=== PATIENT | female | born 1945 | race Caucasian/White ===

== ENCOUNTER 2023-10-18 12:49 | Inpatient (IN) ==
--- OUTSIDE RECORDS SUMMARY | 2023-10-18 12:51 | External Medical Summary | Summary of Care ---
Author Name Unknown Organization [facility] Address [address] [place] [address] Phone [phone] Care Team Providers Care Time Recorder Name Role Phone Leslie Forbes MD Primary Care Provid er Reason for Visit * Reason Onset Date Comments Forms Request 08/14/2023 Encounter Details Date Type Department Care Team (Late st Contact Info) Description 08/14/2023 Telephone [facility] [address] [place] [address] Leslie Forbes MD [address] [place] [address] Forms Request Allergies No known active allergiesdocumented as of this encounter (statuses as of 09/03/2023) Medications Medication Sig Dispensed Refills Start Date End Date Status ACETAMINOPHEN 325 MG PO TABS Take 2 Tablets by mouth every 6 hours as needed. 100 Tab 0 06/30/2011 Active [facility] SUPREME DIAP[facility] S5 MISCIndications:Un specified urinary incontinence,Fecal urgency use 6-7 diapers per day 4 Box 3 06/30/2011 Active VITAMIN D 2000 UNITS PO TABSIndications:Vi tamin D deficiency 1 TABLET DAILY 30 Tab 0 04/01/2013 Active ECOTRIN LOW STRENGTH 81 MG PO TBECIndications:DM type 2, goal A1c below 7,HTN, goal below 140/90 One pill by mouth once a day 100 Tab 5 04/05/2014 Active Blood Glucose Monitoring Suppl (ONE TOUCH ULTRA SYSTEM KIT) W/DEVICE KIT Use up to four times a day as directed DX 250.0 1 Kit 0 05/15/2015 Active Alcohol Swabs (PHARMACIST CHOICE ALCOHOL) PADSIndications:DM type 2, goal A1C below 8.0 TEST 1-2 TIMES DAILY DIRECTED 100 Each 3 06/18/2015 Active Misc. Devices (BATH/SHOWER SEAT) MISCIndications:He miplegia and hemiparesis 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 (HCC) Use when in shower for stability 1 Each 0 02/23/2019 Active Cyanocobalamin (B-12-SL) 1000 MCG SL TabletIndications: Encounter for long-term (current) use of medications,Vitami n deficiency Place 1,000 mcg under the tongue daily. 90 Tab 1 09/14/2019 Active OneTouch Verio In Vitro Strip (Glucose Blood)Indications: Type 2 diabetes mellitus with hemoglobin A1c goal of less than 8.0% (HCC) USE TO TEST BLOOD SUGARS UP TO 4 TIMES A DAY DX E11.9 400 Strip 3 08/16/2020 Active metFORMIN HCl ER 500 MG Oral Tablet Extended Release 24 Hour (Glucophage XR) TAKE 2 TABLETS BY MOUTH TWICE A DAY WITH MEALS 360 Tablet 3 10/15/2021 Active Loperamide HCl 2 MG Oral Capsule (Imodium) Take 1 Capsule by mouth 4 times a day as needed for Diarrhea. 0 Active Nystatin 379085 UNIT/GM External CreamIndications:C andidal skin infection Apply topically to affected area 2 times a day . To affacted area for two weeks. 180 g 1 01/20/2022 Active OneTouch Verio w/Device KitIndications:Typ e 2 diabetes mellitus with hemoglobin A1c goal of less than 8.0% (HCC) Use up to 4 times a day E11.9 1 Kit 0 01/20/2022 Active OneTouch UltraSoft LancetsIndications :Type 2 diabetes mellitus with hemoglobin A1c goal of less than 8.0% (HCC) Use as directed 4 times a day as needed for Hyperglycemia (high sugar) or Hypoglycemia (low sugar). Use up to four times a day as directed 100 Each 5 01/20/2022 Active OneTouch UltraSoft LancetsIndications :Type 2 diabetes mellitus with hemoglobin A1c goal of less than 8.0% (HCC) Use up to four times a day as directed DX E11.9 400 Each 3 06/22/2022 Active Nystatin 510313 UNIT/GM External Powder (Nystop)Indication s:Candidal skin infection Apply topically to affected area 3 times a day. 240 g 5 08/12/2022 Active hydrALAZINE HCl 25 MG Oral Tablet (Apresoline) TAKE 1 TABLET BY MOUTH THREE TIMES A DAY 270 Tablet 2 08/19/2022 Active glipiZIDE 5 MG Oral Tablet (Glucotrol)Indicat ions:Type 2 diabetes mellitus with hemoglobin A1c goal of less than 8.0% (HCC) TAKE 2 TABLETS BY MOUTH EVERY DAY WITH BREAKFAST 180 Tablet 3 11/24/2022 Active linaGLIPtin 5 MG Oral Tablet (Tradjenta) Take 1 Tablet by mouth in the morning. 90 Tablet 2 01/12/2023 Active Atorvastatin Calcium 20 MG Oral Tablet (Lipitor)Indicatio ns:Type 2 diabetes mellitus with hemoglobin A1c goal of less than 8.0% (HCC) Take 1 Tablet by mouth in the morning. 90 Tablet 3 02/16/2023 Active OneTouch Verio In Vitro Strip (Glucose Blood)Indications: Type 2 diabetes mellitus with hemoglobin A1c goal of less than 8.0% (HCC) Use up to 4 times a day E11.9 100 Strip 11 03/10/2023 Active Levothyroxine Sodium 175 MCG Oral Tablet (Levoxyl)Indicatio ns:Hypothyroidism due to acquired atrophy of thyroid TAKE 1.25 TABLETS BY MOUTH IN THE MORNING. ON AN EMPTY STOMACH.. 113 Tablet 3 04/23/2023 Active Famotidine 40 MG Oral Tablet (Pepcid) TAKE 1 TABLET BY MOUTH EVERY DAY IN THE MORNING 90 Tablet 1 06/15/2023 Active Lisinopril 2.5 MG Oral Tablet (Prinivil)Indicati ons:Type 2 diabetes mellitus with hemoglobin A1c goal of less than 7.0% (HCC) TAKE 1 TABLET BY MOUTH EVERY DAY IN THE MORNING 90 Tablet 1 06/15/2023 Active Metoprolol Tartrate 50 MG Oral Tablet (Lopressor)Indicat ions:HTN, goal below 150/90 TAKE 1 TABLET BY MOUTH IN THE MORNING AND BEFORE BEDTIME 180 Tablet 1 06/15/2023 Active Jardiance 25 MG Oral Tablet (Empagliflozin)Ind ications:Type 2 diabetes mellitus with hemoglobin A1c goal of less than 8.0% (HCC) TAKE 1 TABLET BY MOUTH EVERY DAY IN THE MORNING 90 Tablet 1 06/15/2023 Active Potassium Chloride Lucy ER 10 MEQ Oral Tablet Extended Release (Klor-Con M10)Indications:HT N, goal below 150/90 TAKE 1 TABLET BY MOUTH 2 TIMES A DAY. WITH FOOD. Strength: 10 mEq 180 Tablet 1 08/03/2023 Active documented as of this encounter (statuses as of 09/03/2023) Active Problems Problem Noted Date Diagnosed Date Hyperlipidemia 08/13/2021 Gastro-esophageal reflux disease without esophag itis 08/13/2021 Hemiplegia and hemiparesis 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 05/21/2018 Last Assessment & Plan: L sided weakness. Non-ambulatory. Continues asa and atorvastatin BP at goal on lisinopril, metoprolol DM uncontrolled. LDL one year ago 34. Hypothyroidism due to acquired atrophy of thyroi d 05/21/2018 Last Assessment & Plan: TSH 07/28/22--20.30. [place] d/t noncompliance with taking levoxyl. Son reports he is giving it to her in am 30 min prior to other meds. They did not roll picker new dose levoxyl 200mcg y Unspecified abnormalities of gait and mobility 0 03/18/2017 Chronic diarrhea 02/04/2017 Primary osteoarthritis involving multiple joints 04/02/2016 Type 2 diabetes mellitus wit h hemoglobin A1c goal of less than 8.0% 10/07/2013 Overview: ICD-10 update of inactive term Last Assessment & Plan: Current Status: Slow or gradual progression Degree of Condition Awareness: Demonstrates poor understanding of condition, disease course, and/or prognosis "RED FLAG" Diabetic symptoms: o none Goal HgbA1c o <8 Diabetic Complications o NONE KNOWN Medication Regimen o Metformin o Sulfonylureas (ex: Glipizide) o DPP-4 Inhibitors (ex: Januvia, Tradjenta) o SGLT (ex: Jardiance) DM Secondary Prevention o TYRESE Inhibitor / ARB o Moderate-High Intensity Statin o Aspirin Followed by pcp Vitamin D deficiency 04/08/2012 Depression, major, in remission 03/23/2012 History of nonadherence to medical treatment HTN, goal below 150/90 documented as of this encounter (statuses as of 09/03/2023) Resolved Problems Problem Noted Date Diagnosed Date Resolved Date Pressure ulcer of left leg, stage III 04/22/2018 05/21/2018 Closed fracture of lower end of right femur with routine healing 04/22/2018 02/23/2019 Encounter for long-term (cur rent) use of medications 08/21/2017 05/21/2018 Hypothyroidism 01/16/2017 08/21/2017 Debility 06/13/2015 05/21/2018 Sleep disturbance 04/03/2015 04/02/2016 Left knee DJD 02/12/2015 04/02/2016 Abnormal thyroid function test 01/24/2015 04/02/2016 Hematoma of left hip 11/28/2014 016 HTN, goal below 140/90 11/16/201404/02 Paronychia of second finger, right 10/13/2014 04/02/2016 Wheezing 04/21/2014 04/02/2016 Need for shingles vaccine 10/10/2013 Type 1 diabetes mellitus wit h hemoglobin A1c goal of less than 8.0% 10/07/2013 10/07/2013 Overview: ICD-10 update of inactive term Sleep disturbance 06/21/2013 05/21/2018 Sinobronchitis 06/02/2013 04/02/2016 Cough 06/02/2013 05/05/2014 Nausea with vomiting 06/02/2013 014 Routine medical exam 04/01/2013 016 HTN, goal below 140/90 04/01/201310/10 Need for shingles vaccine 11/02/2012 Obesity, Class I, BMI 30.0-3 4.9 (see actual BMI) 11/02/2012 08/21/2017 Overview: BMI= 33.65 11/02/12 Urinary incontinence 07/27/2012 016 Overview: ICD-10 update of inactive term Unspecified prophylactic or treatment measure 07/19/20 12 04/02/2016 Acute pharyngitis 06/10/2012 05/05/2014 Acute URI 06/10/2012 05/05/2014 Acute URI 05/24/2012 05/05/2014 Diaper or napkin rash 04/07/20122015 Severe obesity with body mas s index (BMI) of 35.0 to 39.9 with serious comorbidity 03/23/2012 Overview: bmi= 35.67 03/23/12 ICD-10 update of inactive diagnosis Hemiplegia, post-stroke 03/23/201205/02 Other screening mammogram 03/23/2012 Menopause 03/23/2012 05/21/2018 HTN, goal below 140/90 06/30/201103/23 Adjustment disorder with depressed mood 06/30/2011 03/23/2012 Hypothyroidism 06/30/2011 03/23/2012 ARF w/ tubular necrosis 02/0806/30/2011 08/10/2014 ACUTE RENAL FAILURE REQUIRING DIALYSIS 02/0806/30/2011 06/30/2011 Type 2 diabetes mellitus wit h hemoglobin A1c goal of 7.0%-8.0% 06/30/2011 03/23/2012 Overview: ICD-10 update of inactive term Benign neoplasm of pituitary gland 06/30/2011 08/21/2017 Anemia of other chronic disease 06/30/2011 04/02/2016 ACUTE CHOLECYSTITIS S/P CHOLECYSTECTOMY 02/08 1 08/21/2017 CVA WITH LEFT HEMIPARESIS 06/30/2011 Type 2 diabetes mellitus wit h hemoglobin A1c goal of less than 7.0% 04/08/2012 Overview: ICD-10 update of inactive term HTN, goal below 130/80 04/01 Hemiparesis, left 05/21/2018 Hypothyroid 05/21/2018 Type 2 diabetes mellitus wit h hemoglobin A1c goal of 7.0%-8.0% 11/02/2012 Overview: ICD-10 update of inactive term Type 2 diabetes mellitus wit h hemoglobin A1c goal of less than 7.0% 10/07/2013 Overview: ICD-10 update of inactive term HTN, goal below 140/80 11/16 documented as of this encounter (statuses as of 09/03/2023) Immunizations Name Administration Dates Next Due Pneumococcal Conjugate Vacc, 13 Valent (Prevnar) 04/02/2016 Pneumococcal Polysaccharide PPV23 (Pneumovax) 06/30/2011 Seasonal Influenza, PF, 6 M & above, IM , (FluLaval or Fluzone) 08/08/2022,06/05/2020,06/02/2019,05/21,08/21/2017 Seasonal Influenza, Quadriva lent Hd (Fluzone Hd) 08/03/2023,08/13/2021 Seasonal Influenza, Quadriva lent, No Preserve, IM 10/08/2016 Seasonal Influenza, Split, I IV3, With Preserve, Inj 05/05/2014,06/21/2013,05/14/2012,06/14,05/21/2010 TDAP (age 10 and older)(Boostrix) 11/02/2012 documented as of this encounter Social History Tobacco Use Types Packs/Day Years Used Date Smoking Tobacco: Never Smokeless Tobacco: Never Alcohol Use Standard Drinks/Week Comments No 0 (1 standard drink = 0.6 oz pur e alcohol) none PHQ-2 Answer Date Recorded PHQ Adult Total Score 0 08/13/2021 Hunger Vital Sign Answer Date Recorded Within the past 12 months, y ou worried that your food would run out before you got the money to buy more. Never true 01/09/20 23 Within the past 12 months, t he food you bought just didn't last and you didn't have money to get more. Never true 01/08/2023 Sex and Gender Information Value Date Recorded Sex Assigned at Female 09/13/2019 1:00 PM EST Gender Identity Female 09/13/2019 1:00 PM EST Sexual Orientation Straight 09/13/2019 1: 00 PM EST Job Start Date Occupation Industry Not on file Not on file Not on file documented as of this encounter Miscellaneous Notes * Telephone Encounter - Leslie Forbes MD - 09/03/2023 4:56 PM EST Form signed and submitted to nursing for processing. * Telephone Encounter - Arti Dolan OSA - 08/14/2023 3:00 PM EST Forms for [facility]. I put them in the Box. documented in this encounter Plan of Treatment Upcoming Encounters Date Type Department Care Team (Late st Contact Info) Description 12/04/2023 2:40 PM EDT Office Visit [facility] [address] [place] [address] Leslie Forbes MD [address] [facility] [place] [address] Health Maintenance Due Date Last Done Comments COVID-19 Vaccine (#1) 1945 Zoster Vaccines (1 of 2) 1996 Hepatitis B (1 of 3 - Risk 3-dose series) 2006 Diabetic Eye Exam 12/23/2013 12/23/2012, , 05/06/2012 Albumin/Creatinine Ratio 04/08/2014 04/08/2013, 03/01 DXA Scan 03/31/2019 03/31/2012, 03/31/2012 Depression Screening 08/13/2022 08/13/2021, 02/12/2015 (Discussed) DTaP,Tdap,and Td Vaccines (2 - Td or Tdap) 11/02/2022 11/02/2012 Diabetic Foot Exam 07/28/2023 07/28/2022, 1 10/14/2020, 09/13/2019, Additional history exists HbA1c 02/02/2024 08/03/2023, 08/0 11/2022, 12/09/2022, Additional history exists GFR 08/03/2024 08/03/2023, 04/1 08/2022, 07/28/2022, Additional history exists TSH 08/03/2024 08/03/2023, 08/0 11/2022, 12/09/2022, Additional history exists Pneumococcal Vaccine: 65+ Years Completed 04/02/2016, 06/30/2011 Influenza Vaccine (FLU shot) Completed 11/2022, 08/08/2022, 08/13/2021, Additional history exists GARDASIL-HPV IMMUNIZATION SERIES Aged Out No longer eligible based on patient's age to complete this topic MENINGOCOCCAL (MENACTRA/MENVEO) Aged Out No longer eligible based on patient's age to complete this topic documented as of this encounter Medical Devices Not on filedocumented as of this encounter Care Teams Time Recorder Relationship Specialty Start Date End Date Leslie Forbes MD [address] [place] [address] PCP - General Family Medicine 07/28/22 documented as of this encounter
--- OUTSIDE RECORDS SUMMARY | 2023-10-18 12:51 | External Medical Summary | Summary of Care ---
Author Name Unknown Organization [facility] Address [address] [place] [address] Phone [phone] Care Team Providers Care Telegraphic Service Dispatcher Name Role Phone Leslie Forbes MD Primary Care Provid er Reason for Visit * Reason Onset Date Comments Referral 10/07/2023 [facility] d/c (DM) Encounter Details Date Type Department Care Team (Late st Contact Info) Description 10/07/2023 Telephone Pharmacy Call Center [address] [place] [address] [facility] [address], [place] [id number] Referral ([facility] d/c (DM)) Allergies No known active allergiesdocumented as of this encounter (statuses as of 10/07/2023) Medications Medication Sig Dispensed Refills Start Date [...] as needed for Diarrhea. 0 Active Nystatin 973127 UNIT/GM External CreamIndications:C andidal skin infection Apply [...] E11.9 400 Each 3 06/22/2022 Active Nystatin 032097 UNIT/GM External Powder (Nystop)Indication s:Candidal skin infection [...] as of this encounter (statuses as of 10/07/2023) Active Problems Problem Noted Date Diagnosed Date [...] 05/21/2018 Last Assessment & Plan: TSH 07/28/22--20.30. [place] d/t noncompliance with taking levoxyl. Son reports he is giving it to her in am 30 min prior to other meds. 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 Patient is discharged from [facility] services at this time. If patient would like to schedule an appointment with [facility] within 6 months, she can call our department directly at [phone] and we would be happy to help her schedule with us. Thank you, Josie Crenshaw Business Database Analyst [facility] 10/07/2023,11:40 AM documented in this encounter Plan of Treatment Upcoming Encounters Date Type Department Care Team (Late st Contact Info) Description 12/04/2023 2:40 PM EDT Office Visit [facility] [address] [place] [address] Leslie Forbes MD [address] [place] [address] Health Maintenance Due Date Last Done [...] 12/09/2022, Additional history exists GFR 08/03/2024 08/03/2023, 0408/2022, 07/28/2022, Additional history exists TSH 08/03/2024 08/03/2023, [...] filedocumented as of this encounter Care Teams Telegraphic Service Dispatcher Relationship Specialty Start Date End Date Leslie Forbes MD [address] [place] [address] PCP - General Family Medicine 07/28/22 documented as of this encounter
--- OUTSIDE RECORDS SUMMARY | 2023-10-18 12:52 | External Medical Summary | Summary of Care ---
Author Name Unknown Organization [facility] Address [address] [facility] [place] [address] Phone [phone] Care Team Providers Care Watcher [employer] Name Role Phone Leslie Forbes MD Primary Care Provid er Reason for Visit * Reason Onset Date Comments [facility]: Maintenance 08/12/2023 Encounter Details Date Type Department Care Team (Late st Contact Info) Description 08/12/2023 Telephone [facility], [facility] [address] [facility] [place] [address] [facility], Nurse [facility] [address] [facility] [place] [address] [facility]: Maintenance Allergies No known active allergiesdocumented as of this encounter (statuses as of 08/13/2023) Medications Medication Sig Dispensed Refills Start Date [...] as needed for Diarrhea. 0 Active Nystatin 320598 UNIT/GM External CreamIndications:C andidal skin infection Apply [...] E11.9 400 Each 3 06/22/2022 Active Nystatin 268667 UNIT/GM External Powder (Nystop)Indication s:Candidal skin infection [...] as of this encounter (statuses as of 08/13/2023) Active Problems Problem Noted Date Diagnosed Date [...] 05/21/2018 Last Assessment & Plan: TSH 07/28/22--20.30. [facility] d/t noncompliance with taking levoxyl. Son reports he is giving it to her in am 30 min prior to other meds. They did not seed cone picker new dose levoxyl 200mcg y Unspecified [...] as of this encounter (statuses as of 08/13/2023) Resolved Problems Problem Noted Date Diagnosed Date [...] inactive term Unspecified prophylactic or treatment measure 1104/02/2016 Acute pharyngitis 06/10/2012 05/05/2014 Acute URI 06/10/2012 [...] as of this encounter (statuses as of 08/13/2023) Immunizations Name Administration Dates Next Due Pneumococcal [...] encounter Miscellaneous Notes * Telephone Encounter - Lyla Tinajero RN - 08/13/2023 3:42 PM EST See CM note Lyla Tinajero RN * Telephone Encounter - Natalie Ramires RN - 08/12/2023 3:32 PM EST Phone call from caregiver Disha asking if nurse can see patient, patient has painful rash in groin, side and back of legs, rash appears "yeasty". She is applying Nystatin powder. Caregiver reports patient is incontinent and bedbound, sons are taking care of patient as best they can but has concerns about incontinence care. Disha states she is recently reestablishing care of patient. Patient graduated from [facility] 11/2022 and was referred to PCP/BASIA Tinajero Patient does not have HH services. Caregiver advised to follow up with PCP regarding above Routing to PCP/CM Peña Ramires RN, BSN documented in this encounter Plan of Treatment Upcoming Encounters Date Type Department Care Team (Late st Contact Info) Description 08/21/2023 1:30 PM EST Office Visit Pharmacy, [facility] [address] [place] [address] [facility] [address] [place] [address] 12/04/2023 2:40 PM EDT Office Visit [facility] [address] [place] [id number] Leslie Forbes MD [address] [place] [address] Health Maintenance Due Date Last Done Comments COVID-19 Vaccine (#1) 1945 Zoster Vaccines (1 of 2) 1996 Hepatitis B (1 of 3 - Risk 3-dose series) 2006 Diabetic Eye Exam 12/23/2013 12/23/2012, , 05/06/2012 Albumin/Creatinine Ratio 04/08/2014 04/08/2013, 0711/2011 DXA Scan 03/31/2019 03/31/2012, 03/31/2012 Depression Screening 08/13/2022 08/13/2021, 02/12/2015 (Discussed) DTaP,Tdap,and Td Vaccines (2 - Td or Tdap) 11/02/2022 11/02/2012 Diabetic Foot Exam 07/28/2023 07/28/2022, 1 10/14/2020, 09/13/2019, Additional history exists HbA1c 02/02/2024 08/03/2023, 08/0 11/2022, 12/09/2022, Additional history exists GFR 08/03/2024 08/03/2023, 11/29, 07/28/2022, Additional history exists TSH 08/03/2024 08/03/2023, [...] filedocumented as of this encounter Care Teams Watcher [employer] Relationship Specialty Start Date End Date Leslie Forbes MD [address] [place] [address] PCP - General Family Medicine 07/28/22 documented as of this encounter
--- OUTSIDE RECORDS SUMMARY | 2023-10-18 12:52 | External Medical Summary | Summary of Care ---
Author Name Unknown Organization [facility] Address [address] [place] [address] Phone [phone] Care Team Providers Care Network Security Officer Name Role Phone Leslie Forbes MD Primary Care Provid er Reason for Referral * Evaluate & Treat - Unlimited Visits (Within 30 days (routine)) - Authorized Specialty Diagnoses / Procedures Referred By Contac t Referred To Contact Pharmacist / Pharmacy Diagnoses Type 2 diabetes mellitus with hemoglobin A1c goal of less than 8.0% (HCC) Hemiplegia and hemiparesis 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 (HCC) Leslie Forbes MD [address] [place] [address] Referral ID Status Reason Start Date Expiration Date Visits Requested Visits Authorized [id number] Authorized Specialty Services Required 08/03/2023 99 99 Question Answer Referral Priority Within 30 days (routine) Where should this appointment be scheduled? [facility] Department: Primary Care Reason for Referral: DM Target A1c: < 8 Comments Pharmacist Medication Therapy Management: Minimum frequency patient should be seen in person for medication management: as appropriate per clinical condition and patient status By my signature, I understand that my patient Michelle Diamond will have her medication therapy managed by the [facility] ([facility]) per established policies, procedures, and protocols. I also certify that this referral may serve as an initiation of service for the management of drug therapy in the above noted patient. [facility] providers will be responsible for scheduling patient visits, obtaining appropriate laboratory studies, and adjusting medication management therapy per patient's need, in addition to those roles spelled out in the clinic policy, procedures, and drug management protocols. I understand that the service provided by the [facility] is voluntary and have informed patient that they can refuse the service at their discretion. I am aware that the [facility] Clinic will provide me with a copy of the patient encounter via my [employer]. I authorize the [facility] Clinic to carry out these activities on my behalf. I consider this program to be a necessary part of the patient's medical care. Leslie Forbes MD Reason for Visit * Reason Comments Follow Up Will need Klorcon re filled and about a glucose monitor Encounter Details Date Type Department Care Team (Latest Contact Info) Description 08/03/2023 1:20 PM EST Office Visit [facility] [address] [place] [address] Leslie Forbes MD [address] [place] [address] Type 2 diabetes mellitus with hemoglobin A1c goal of less than 8.0% ([facility])*; Hypothyroidism due to acquired atrophy of thyroid; Hyperlipidemia, unspecified hyperlipidemia type; HTN, goal below 150/90; Vitamin D deficiency; Gastro-esophageal reflux disease without esophagitis; Hemiplegia and hemiparesis 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 ([facility]); Depression, major, in remission ([facility]); History of nonadherence to medical treatment; Unspecified abnormalities of gait and mobility Allergies No known active allergiesdocumented as of this encounter (statuses as of 09/03/2023) Medications Medication Sig Dispensed Refills Start Date End Date Status ACETAMINOPHEN 325 MG PO TABS Take 2 Tablets by mouth every 6 hours as needed. 100 Tab 0 06/30/2011 Active [facility] SUPREME DIAPERS S5 MISCIndications: Unspecified urinary incontinence,Fec al urgency use 6-7 diapers per day 4 Box 3 06/30/2011 Active VITAMIN D 2000 UNITS PO TABSIndications: Vitamin D deficiency 1 TABLET DAILY 30 Tab 0 04/01/2013 Active ECOTRIN LOW STRENGTH 81 MG PO TBECIndications: DM type 2, goal A1c below 7,HTN, goal below 140/90 One pill by mouth once a day 100 Tab 5 04/05/2014 Active Blood Glucose Monitoring Suppl (ONE TOUCH ULTRA SYSTEM KIT) W/DEVICE KIT Use up to four times a day as directed DX 250.0 1 Kit 0 05/15/2015 Active Alcohol Swabs (PHARMACIST CHOICE ALCOHOL) PADSIndications: DM type 2, goal A1C below 8.0 TEST 1-2 TIMES DAILY DIRECTED 100 Each 3 06/18/2015 Active Misc. Devices (BATH/SHOWER SEAT) MISCIndications: Hemiplegia and hemiparesis 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 (HCC) Use when in shower for stability 1 Each 0 02/23/2019 Active Cyanocobalamin (B-12-SL) 1000 MCG SL TabletIndication s:Encounter for long-term (current) use of medications,Emily min deficiency Place 1,000 mcg under the tongue daily. 90 Tab 1 09/14/2019 Active OneTouch Verio In Vitro Strip (Glucose Blood)Indication s:Type 2 diabetes mellitus with hemoglobin A1c goal [...] as needed for Diarrhea. 0 Active Nystatin 058989 UNIT/GM External CreamIndications :Candidal skin infection Apply topically to affected area 2 times a day . To affacted area for two weeks. 180 g 1 01/20/2022 Active OneTouch Verio w/Device KitIndications:T ype 2 diabetes mellitus with hemoglobin A1c goal of less than 8.0% (HCC) Use up to 4 times a day E11.9 1 Kit 0 01/20/2022 Active OneTouch UltraSoft LancetsIndicatio ns:Type 2 diabetes mellitus with hemoglobin A1c goal of less than 8.0% (HCC) Use as directed 4 times a day as needed for Hyperglycemia (high sugar) or Hypoglycemia (low sugar). Use up to four times a day as directed 100 Each 5 01/20/2022 Active OneTouch UltraSoft LancetsIndicatio ns:Type 2 diabetes mellitus with hemoglobin A1c goal of less than 8.0% (HCC) Use up to four times a day as directed DX E11.9 400 Each 3 06/22/2022 Active Nystatin 784641 UNIT/GM External Powder (Nystop)Indicati ons:Candidal skin infection Apply topically to affected area 3 times a day. 240 g 5 08/12/2022 Active hydrALAZINE HCl 25 MG Oral Tablet (Apresoline) TAKE 1 TABLET BY MOUTH THREE TIMES A DAY 270 Tablet 2 08/19/2022 Active glipiZIDE 5 MG Oral Tablet (Glucotrol)Indic ations:Type 2 diabetes mellitus with hemoglobin A1c goal of less than 8.0% (HCC) TAKE 2 TABLETS BY MOUTH EVERY DAY WITH BREAKFAST 180 Tablet 3 11/24/2022 Active linaGLIPtin 5 MG Oral Tablet (Tradjenta) Take 1 Tablet by mouth in the morning. 90 Tablet 2 01/12/2023 Active Atorvastatin Calcium 20 MG Oral Tablet (Lipitor)Indicat ions:Type 2 diabetes mellitus with hemoglobin A1c goal of less than 8.0% (HCC) Take 1 Tablet by mouth in the morning. 90 Tablet 3 02/16/2023 Active OneTouch Verio In Vitro Strip (Glucose Blood)Indication s:Type 2 diabetes mellitus with hemoglobin A1c goal of less than 8.0% (HCC) Use up to 4 times a day E11.9 100 Strip 11 03/10/2023 Active Levothyroxine Sodium 175 MCG Oral Tablet (Levoxyl)Indicat ions:Hypothyroid ism due to acquired atrophy of thyroid TAKE 1.25 TABLETS BY MOUTH IN THE MORNING. ON AN EMPTY STOMACH.. 113 Tablet 3 04/23/2023 Active Famotidine 40 MG Oral Tablet (Pepcid) TAKE 1 TABLET BY MOUTH EVERY DAY IN THE MORNING 90 Tablet 1 06/15/2023 Active Lisinopril 2.5 MG Oral Tablet (Prinivil)Indica tions:Type 2 diabetes mellitus with hemoglobin A1c goal of less than 7.0% (HCC) TAKE 1 TABLET BY MOUTH EVERY DAY IN THE MORNING 90 Tablet 1 06/15/2023 Active Metoprolol Tartrate 50 MG Oral Tablet (Lopressor)Indic ations:HTN, goal below 150/90 TAKE 1 TABLET BY MOUTH IN THE MORNING AND BEFORE BEDTIME 180 Tablet 1 06/15/2023 Active Jardiance 25 MG Oral Tablet (Empagliflozin)I ndications:Type 2 diabetes mellitus with hemoglobin A1c goal of less than 8.0% (HCC) TAKE 1 TABLET BY MOUTH EVERY DAY IN THE MORNING 90 Tablet 1 06/15/2023 Active Potassium Chloride Lucy ER 10 MEQ Oral Tablet Extended Release (Klor-Con M10)Indications: HTN, goal below 150/90 TAKE 1 TABLET BY MOUTH 2 TIMES A DAY. WITH FOOD. Strength: 10 mEq 180 Tablet 1 08/03/2023 Active Potassium Chloride Lucy ER 10 MEQ Oral Tablet Extended Release (Klor-Con M10) TAKE 1 TABLET BY MOUTH 2 TIMES A DAY. WITH FOOD. Strength: 10 mEq 180 Tablet 1 11/09/2022 3 Discontinue d(Refill) Potassium Chloride Lucy ER 10 MEQ Oral Tablet Extended Release (Klor-Con M10) TAKE 1 TABLET BY MOUTH 2 TIMES A DAY. WITH FOOD. Strength: 10 mEq 180 Tablet 1 08/03/2023 3 Discontinue d(Refill) documented as of this encounter (statuses as [...] 05/21/2018 Last Assessment & Plan: TSH 07/28/22--20.30. [place] d/t noncompliance with taking levoxyl. Son reports he is giving it to her in am 30 min prior to other meds. They did not mushroom picker new dose levoxyl 200mcg y Unspecified [...] on file documented as of this encounter Last Filed Vital Signs Vital Sign Reading Time Taken Comments Blood Pressure 110/60 08/03/2023 1:14 PM EST Pulse 93 08/03/2023 1:14 PM EST Temperature 36.6 C (97.8 F) 08/03/2023 1:14 PM ES T Respiratory Rate - - Oxygen Saturation 97% 08/03/2023 1:14 PM EST Inhaled Oxygen Concentration - - Weight 62.3 kg (137 lb 6.4 oz) 08/03/2023 1:14 P M EST Height - - Body Mass Index 25.13 01/20/2022 1:52 PM EDT documented in this encounter Progress Notes * Leslie Forbes MD - 08/03/2023 1:25 PM EST ASSESSMENT / PLAN: Michelle Diamond is a 78 year old female with PMHx T2DM / hypothyroidism / HLD / HTN / hypovit D / GERD / OA / left sided hemiplegia following cerebral infarction / MDD - here for 4 mo recheck. #T2DM Recently uncontrolled - but improving now with adherence to meds and dietary changes Continue the following: Jardiance 25mg daily (max) tradjenta 5 mg daily (max) Metformin 2000mg daily (max) glipizide 10mg with breakfast (max is 40mg daily, caution in elderly) Update labs today She is adamant about not getting on any sort of injectable medicine, even GLP 1 once weekly unfortunately Dietary precautions noted MTM referral resent, and Jailene was gracious enough to come in and introduce herself in person. Plan is to get an appt on the schedule before patient leaves today. #HTN Well controlled Cont lisinopril 2.5 mg daily , hydralazine 25 mg TID, metoprolol 50mg BID #GERD Cont famotidine 40mg daily #Hypothyroidism Improved with adherence to medication regimen Update labs #Chronic diarrhea Loperamide PRN Follow Up: Return in about 4 months (around 12/03/2023) for Labs Today, Fasting Labs 2-5 Days Before Next Visit. | For: Labs Today, Fasting Labs 2-5 Days Before Next Visit | Check-out note: Jailene ([facility]) wants to be notified BEFORE this patient checks out so that she can put her on [facility] schedule thanks! Type 2 diabetes mellitus with hemoglobin A1c goal of less than 8.0% ([facility]) (Primary) - HEMOGLOBIN A1C; Future; Expected date: 08/03/2023 - HEMOGLOBIN A1C; Future; Expected date: 12/03/2023 - COMPREHENSIVE METABOLIC PANEL; Future; Expected date: 08/03/2023 - COMPREHENSIVE METABOLIC PANEL; Future; Expected date: 12/03/2023 - TSH WITH FREE T4 IF INDICATED; Future; Expected date: 08/03/2023 - ALBUMIN / CREATININE RATIO, URINE; Future; Expected date: 08/03/2023 - LIPID PANEL WITH DIRECT LDL IF TG IS HIGH; Future; Expected date: 12/03/2023 - PHARMACIST MEDS THERAPY MGMT REFERRAL OP Hypothyroidism due to acquired atrophy of thyroid - HEMOGLOBIN A1C; Future; Expected date: 08/03/2023 - HEMOGLOBIN A1C; Future; Expected date: 12/03/2023 - COMPREHENSIVE METABOLIC PANEL; Future; Expected date: 08/03/2023 - COMPREHENSIVE METABOLIC PANEL; Future; Expected date: 12/03/2023 - TSH WITH FREE T4 IF INDICATED; Future; Expected date: 08/03/2023 - ALBUMIN / CREATININE RATIO, URINE; Future; Expected date: 08/03/2023 - LIPID PANEL WITH DIRECT LDL IF TG IS HIGH; Future; Expected date: 12/03/2023 Hyperlipidemia, unspecified hyperlipidemia type - HEMOGLOBIN A1C; Future; Expected date: 08/03/2023 - HEMOGLOBIN A1C; Future; Expected date: 12/03/2023 - COMPREHENSIVE METABOLIC PANEL; Future; Expected date: 08/03/2023 - COMPREHENSIVE METABOLIC PANEL; Future; Expected date: 12/03/2023 - TSH WITH FREE T4 IF INDICATED; Future; Expected date: 08/03/2023 - ALBUMIN / CREATININE RATIO, URINE; Future; Expected date: 08/03/2023 - LIPID PANEL WITH DIRECT LDL IF TG IS HIGH; Future; Expected date: 12/03/2023 HTN, goal below 150/90 - Potassium Chloride Lucy ER 10 MEQ Oral Tablet Extended Release (Klor-Con M10); TAKE 1 TABLET BY MOUTH 2 TIMES A DAY. WITH FOOD. Strength: 10 mEq - HEMOGLOBIN A1C; Future; Expected date: 08/03/2023 - HEMOGLOBIN A1C; Future; Expected date: 12/03/2023 - COMPREHENSIVE METABOLIC PANEL; Future; Expected date: 08/03/2023 - COMPREHENSIVE METABOLIC PANEL; Future; Expected date: 12/03/2023 - TSH WITH FREE T4 IF INDICATED; Future; Expected date: 08/03/2023 - ALBUMIN / CREATININE RATIO, URINE; Future; Expected date: 08/03/2023 - LIPID PANEL WITH DIRECT LDL IF TG IS HIGH; Future; Expected date: 12/03/2023 Vitamin D deficiency - HEMOGLOBIN A1C; Future; Expected date: 08/03/2023 - HEMOGLOBIN A1C; Future; Expected date: 12/03/2023 - COMPREHENSIVE METABOLIC PANEL; Future; Expected date: 08/03/2023 - COMPREHENSIVE METABOLIC PANEL; Future; Expected date: 12/03/2023 - TSH WITH FREE T4 IF INDICATED; Future; Expected date: 08/03/2023 - ALBUMIN / CREATININE RATIO, URINE; Future; Expected date: 08/03/2023 - LIPID PANEL WITH DIRECT LDL IF TG IS HIGH; Future; Expected date: 12/03/2023 Gastro-esophageal reflux disease without esophagitis - HEMOGLOBIN A1C; Future; Expected date: 08/03/2023 - HEMOGLOBIN A1C; Future; Expected date: 12/03/2023 - COMPREHENSIVE METABOLIC PANEL; Future; Expected date: 08/03/2023 - COMPREHENSIVE METABOLIC PANEL; Future; Expected date: 12/03/2023 - TSH WITH FREE T4 IF INDICATED; Future; Expected date: 08/03/2023 - ALBUMIN / CREATININE RATIO, URINE; Future; Expected date: 08/03/2023 - LIPID PANEL WITH DIRECT LDL IF TG IS HIGH; Future; Expected date: 12/03/2023 Hemiplegia and hemiparesis 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 (HCC) - HEMOGLOBIN A1C; Future; Expected date: 08/03/2023 - HEMOGLOBIN A1C; Future; Expected date: 12/03/2023 - COMPREHENSIVE METABOLIC PANEL; Future; Expected date: 08/03/2023 - COMPREHENSIVE METABOLIC PANEL; Future; Expected date: 12/03/2023 - TSH WITH FREE T4 IF INDICATED; Future; Expected date: 08/03/2023 - ALBUMIN / CREATININE RATIO, URINE; Future; Expected date: 08/03/2023 - LIPID PANEL WITH DIRECT LDL IF TG IS HIGH; Future; Expected date: 12/03/2023 - PHARMACIST MEDS THERAPY MGMT REFERRAL OP Depression, major, in remission (HCC) - HEMOGLOBIN A1C; Future; Expected date: 08/03/2023 - HEMOGLOBIN A1C; Future; Expected date: 12/03/2023 - COMPREHENSIVE METABOLIC PANEL; Future; Expected date: 08/03/2023 - COMPREHENSIVE METABOLIC PANEL; Future; Expected date: 12/03/2023 - TSH WITH FREE T4 IF INDICATED; Future; Expected date: 08/03/2023 - ALBUMIN / CREATININE RATIO, URINE; Future; Expected date: 08/03/2023 - LIPID PANEL WITH DIRECT LDL IF TG IS HIGH; Future; Expected date: 12/03/2023 History of nonadherence to medical treatment - HEMOGLOBIN A1C; Future; Expected date: 08/03/2023 - HEMOGLOBIN A1C; Future; Expected date: 12/03/2023 - COMPREHENSIVE METABOLIC PANEL; Future; Expected date: 08/03/2023 - COMPREHENSIVE METABOLIC PANEL; Future; Expected date: 12/03/2023 - TSH WITH FREE T4 IF INDICATED; Future; Expected date: 08/03/2023 - ALBUMIN / CREATININE RATIO, URINE; Future; Expected date: 08/03/2023 - LIPID PANEL WITH DIRECT LDL IF TG IS HIGH; Future; Expected date: 12/03/2023 Unspecified abnormalities of gait and mobility - HEMOGLOBIN A1C; Future; Expected date: 08/03/2023 - HEMOGLOBIN A1C; Future; Expected date: 12/03/2023 - COMPREHENSIVE METABOLIC PANEL; Future; Expected date: 08/03/2023 - COMPREHENSIVE METABOLIC PANEL; Future; Expected date: 12/03/2023 - TSH WITH FREE T4 IF INDICATED; Future; Expected date: 08/03/2023 - ALBUMIN / CREATININE RATIO, URINE; Future; Expected date: 08/03/2023 - LIPID PANEL WITH DIRECT LDL IF TG IS HIGH; Future; Expected date: 12/03/2023 Other orders - INFLUENZA VACC, QUAD, HIGH DOSE (FLUZONE HD) Follow Up: Return in about 4 months (around 12/03/2023) for Labs Today, Fasting Labs 2-5 Days Before Next Visit. | For: Labs Today, Fasting Labs 2-5 Days Before Next Visit | Check-out note: Jailene ([facility]) wants to be notified BEFORE this patient checks out so that she can put her on [facility] schedule thanks! If needed, prefers contact by: Ok to leave message on phone: SUBJECTIVE: Nursing Notes: Alia Ardon LPN 08/03/23 1324 Signed The patient has been properly identified by confirmation of name and date of . Chief Complaint Patient presents with Follow Up Will need Klorcon refilled and about a glucose monitor HPI: Michelle Diamond is a 78 year old female. Here for recheck. Here with her son who is also her caregiver. Diet reviewed - historically a very picky eater For protein - she mainly eats hot dogs and will eat eggs ("easiest to chew") Carbs - pop tarts, chips, cookies Has cut back on soda Latest Reference Range & Units 04/03/23 15:05 Estimated Average Glucose <126 mg/dL 189 (H) Hemoglobin A1C 4.0 - 5.6 % 8.2 (H) TSH 0.27 - 4.20 uIU/mL 3.98 TSH WITH FREE T4 IF INDICATED Rpt (H): Data is abnormally high Rpt: View report in Results Review for more information Reviewed sources 1- Patient Active Problem List Diagnosis Code History of nonadherence to medical treatment Z91.199 Depression, major, in remission ([facility]) F32.5 Vitamin D deficiency E55.9 Type 2 diabetes mellitus with hemoglobin A1c goal of less than 8.0% ([facility]) E11.9 HTN, goal below 150/90 I10 Primary osteoarthritis involving multiple joints M15.9 Chronic diarrhea K52.9 Unspecified abnormalities of gait and mobility R26.9 Hemiplegia and hemiparesis 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 ([facility]) I69.354 Hypothyroidism due to acquired atrophy of thyroid E03.4 Hyperlipidemia E78.5 Gastro-esophageal reflux disease without esophagitis K21.9 Current Outpatient Medications Medication Sig Dispense Refill ACETAMINOPHEN 325 MG PO TABS Take 2 Tablets by mouth every 6 hours as needed. 100 Tab 0 CVS SUPREME DIAPERS S5 MISC use 6-7 diapers per day 4 Box 3 VITAMIN D 2000 UNITS PO TABS 1 TABLET DAILY 30 Tab 0 ECOTRIN LOW STRENGTH 81 MG PO TBEC One pill by mouth once a day 100 Tab 5 Blood Glucose Monitoring Suppl (ONE TOUCH ULTRA SYSTEM KIT) W/DEVICE KIT Use up to four times a dayas directed DX 250.0 1 Kit 0 Alcohol Swabs (PHARMACIST CHOICE ALCOHOL) PADS TEST 1-2 TIMES DAILY DIRECTED 100 Each 3 Misc. Devices (BATH/SHOWER SEAT) MISC Use when in shower for stability 1 Each 0 Cyanocobalamin (B-12-SL) [address] 1,000 mcg under the tongue daily. 90 Tab 1 OneTouch Verio In Vitro Strip (Glucose Blood) USE TO TEST BLOOD SUGARS UP TO 4 TIMES A DAY DX E11.9400 Strip 3 metFORMIN HCl ER 500 MG Oral Tablet Extended Release 24 Hour (Glucophage XR) TAKE 2 TABLETS BY MOUTH TWICE A DAY WITH MEALS 360 Tablet 3 Loperamide HCl 2 MG Oral Capsule (Imodium) Take 1 Capsule by mouth 4 times a day as needed for Diarrhea. Nystatin 686110 UNIT/GM External Cream Apply topically to affected area 2 times a day . To affactedarea for two weeks. 180 g 1 OneTouch Verio w/Device Kit Use up to 4 times a day E11.9 1 Kit 0 OneTouch UltraSoft Lancets Use as directed 4 times a day as needed for Hyperglycemia (high sugar) or Hypoglycemia (low sugar). Use up to four times a day as directed 100 Each 5 OneTouch UltraSoft Lancets Use up to four times a day as directed DX E11.9 400 Each 3 Nystatin 290097 UNIT/GM External Powder (Nystop) Apply topically to affected area 3 times a day. 240 g 5 hydrALAZINE HCl 25 MG Oral Tablet (Apresoline) TAKE 1 TABLET BY MOUTH THREE TIMES A DAY 270 Tablet 2 glipiZIDE 5 MG Oral Tablet (Glucotrol) TAKE 2 TABLETS BY MOUTH EVERY DAY WITH BREAKFAST 180 Tablet 3 linaGLIPtin 5 MG Oral Tablet (Tradjenta) Take 1 Tablet by mouth in the morning. 90 Tablet 2 Atorvastatin Calcium 20 MG Oral Tablet (Lipitor) Take 1 Tablet by mouth in the morning. 90 Tablet 3 OneTouch Verio In Vitro Strip (Glucose Blood) Use up to 4 times a day E11.9 100 Strip 11 Levothyroxine Sodium 175 MCG Oral Tablet (Levoxyl) TAKE 1.25 TABLETS BY MOUTH IN THE MORNING. ON ANEMPTY STOMACH.. 113 Tablet 3 Famotidine 40 MG Oral Tablet (Pepcid) TAKE 1 TABLET BY MOUTH EVERY DAY IN THE MORNING 90 Tablet 1 Lisinopril 2.5 MG Oral Tablet (Prinivil) TAKE 1 TABLET BY MOUTH EVERY DAY IN THE MORNING 90 Tablet 1 Metoprolol Tartrate 50 MG Oral Tablet (Lopressor) TAKE 1 TABLET BY MOUTH IN THE MORNING AND BEFORE BEDTIME 180 Tablet 1 Jardiance 25 MG Oral Tablet (Empagliflozin) TAKE 1 TABLET BY MOUTH EVERY DAY IN THE MORNING 90 Tablet 1 Potassium Chloride Lucy ER 10 MEQ Oral Tablet Extended Release (Klor-Con M10) TAKE 1 TABLET BY MOUTH 2 TIMES A DAY. WITH FOOD. Strength: 10 mEq 180 Tablet 1 No current facility-administered medications for this visit. OBJECTIVE: BP 110/60 | Pulse 93 | Temp 36.6 C (97.8 F) | Wt 62.3 kg (137 lb 6.4 oz) | SpO2 97% | BMI 25.13kg/m | BSA 1.65 m Vitals reviewed and is normotensive / afebrile / and not tachycardic General: No acute distress. Neuro: Alert Pleasant & interactive. Sits in wheelchair. +hemiplegia of left side. CN in tact Respiratory: Good inspiratory effort, no labored breathing. CTAB CV: RRR no M R G HEENT: Conjunctivae appear clear. No swelling noted face or lips. Skin: No rash visible on exposed skin areas, normal coloration & appears dry. Psych: Normal affect. Fluent speech. I spent a total of 40-54 minutes (exact time 40 mins) on the date of service in preparation, delivery, and documentation of the care provided to Michelle Diamond excluding any time spent in the performance of separately billed services. Leslie Forbes MD [address] [address] ADDENDUM 09/03/23 RESULTS FROM TODAY'S VISIT (SEE BELOW) SHOW PATIENT IS NOT ADHERENT WITH PRESCRIBED MEDICATION RELATING TO DIABETES AND THYROID. PT DISPLAYS CAPACITY HOWEVER I AM CONCERNED THAT HER CAREGIVER IS NOT ABLE TO PROVIDE ROUND THE CLOCK CARE AND ENCOURAGEMENT TO ADHERE WITH MEDICATION AND NUTRITIOUS DIET. Latest Reference Range & Units 08/03/23 14:06 Sodium 135 - 146 mmol/L 136 Potassium 3.5 - 5.1 mmol/L 4.2 Chloride 98 - 107 mmol/L 95 (L) CO2 22 - 32 mmol/L 23 BUN 6 - 20 mg/dL 14 Creatinine 0.5 - 1.0 mg/dL 0.8 Estimated Glomerular Filtration Rate >=60 mL/min 75 Anion Gap 7 - 15 mmol/L 18 (H) Glucose 70 - 120 mg/dL 499 (H) Calcium 8.4 - 10.2 mg/dL 9.4 Protein 6.0 - 8.3 g/dL 6.2 Estimated Average Glucose <126 mg/dL 255 (H) Hemoglobin A1C 4.0 - 5.6 % 10.5 (H) TSH 0.27 - 4.20 uIU/mL 19.20 (H) TSH WITH FREE T4 IF INDICATED Rpt ! T4, Free 0.9 - 1.7 ng/dL 0.8 (L) Albumin 3.8 - 5.0 g/dL 3.7 (L) AST 10 - 35 U/L 8 (L) ALT 10 - 35 U/L 10 Alkaline Phosphatase 35 - 130 U/L 117 Bilirubin, Total <=1.2 mg/dL 0.4 (L): Data is abnormally low (H): Data is abnormally high !: Data is abnormal Rpt: View report in Results Review for more information There are no Patient Instructions on file for this visit. documented in this encounter Nursing Notes * Alia Ardon LPN - 08/03/2023 1:24 PM EST The patient has been properly identified by confirmation of name and date of . Chief Complaint Patient presents with Follow Up Will need Klorcon refilled and about a glucose monitor documented in this encounter Plan of Treatment Upcoming Encounters Date Type Department Care Team (Late st Contact Info) Description 12/04/2023 2:40 PM EDT Office Visit [address] [phone] Leslie Forbes MD [address], [place] [id number] Scheduled Orders Name Type Priority Associated Diagnoses Orde r Schedule HEMOGLOBIN A1C Lab Routine Type 2 diabetes mellitus with hemoglobin A1c goal of less than 8.0% (HCC) Hypothyroidism due to acquired atrophy of thyroid Hyperlipidemia, unspecified hyperlipidemia type HTN, goal below 150/90 Vitamin D deficiency Gastro-esophageal reflux disease without esophagitis Hemiplegia and hemiparesis 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 (HCC) Depression, major, in remission (HCC) History of nonadherence to medical treatment Unspecified abnormalities of gait and mobility Expected: 12/03/2023 (Approximate), Expires: 09/03/2024 COMPREHENSIVE METABOLIC PANEL Lab Routine Type 2 diabetes mellitus with hemoglobin A1c goal of less than 8.0% (HCC) Hypothyroidism due to acquired atrophy of thyroid Hyperlipidemia, unspecified hyperlipidemia type HTN, goal below 150/90 Vitamin D deficiency Gastro-esophageal reflux disease without esophagitis Hemiplegia and hemiparesis 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 (HCC) Depression, major, in remission (HCC) History of nonadherence to medical treatment Unspecified abnormalities of gait and mobility Expected: 12/03/2023 (Approximate), Expires: 09/03/2024 LIPID PANEL WITH DIRECT LDL IF TG IS HIGH Lab Routine Type 2 diabetes mellitus with hemoglobin A1c goal of less than 8.0% (HCC) Hypothyroidism due to acquired atrophy of thyroid Hyperlipidemia, unspecified hyperlipidemia type HTN, goal below 150/90 Vitamin D deficiency Gastro-esophageal reflux disease without esophagitis Hemiplegia and hemiparesis 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 (HCC) Depression, major, in remission (HCC) History of nonadherence to medical treatment Unspecified abnormalities of gait and mobility Expected: 12/03/2023 (Approximate), Expires: 09/03/2024 Scheduled Referrals Name Type Priority Associated Diagnoses Orde r Schedule PHARMACIST MEDS THERAPY MGMT REFERRAL OP Referral Within 30 days (routine) Type 2 diabetes mellitus with hemoglobin A1c goal of less than 8.0% (HCC) Hemiplegia and hemiparesis 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 (HCC) Ordered: 08/03/2023 Health Maintenance Due Date Last Done Comments COVID-19 Vaccine (#1) 1945 Zoster Vaccines (1 of 2) 1996 Hepatitis B (1 of 3 - Risk 3-dose series) 2006 Diabetic Eye Exam 12/23/2013 12/23/2012, , 05/06/2012 Albumin/Creatinine Ratio 04/08/2014 04/08/2013, 07/11/2011 DXA Scan 03/31/2019 03/31/2012, 03/31/2012 Depression Screening [...] Not on filedocumented as of this encounter Results * (ABNORMAL) COMPREHENSIVE METABOLIC PANEL (08/03/2023 2:06 PM EST) BUN 14 6 - 20 mg/dL 08/04/2023 12:49 AM EST [facility] Creatinine 0.8 0.5 - 1.0 mg/dL 08/04/2023 12:49 AM EST [facility] Estimated Glomerular Filtration Rate 75 >=60 mL/min 08/04/2023 12:49 AM EST [facility] Comment:eGFR is calculated b ased on the CKD-EPI 2020 equation Sodium 136 135 - 146 mmol/L 08/04/2023 12:49 AM EST [facility] Potassium 4.2 3.5 - 5.1 mmol/L 08/04/2023 12:49 AM EST [facility] Chloride 95(L) 98 - 107 mmol/L 08/04/2023 12:49 AM EST [facility] CO2 23 22 - 32 mmol/L 08/04/2023 12:49 AM EST [facility] Anion Gap 18(H) 7 - 15 mmol/L 08/04/2023 12:49 AM EST [facility] Glucose 499(H) 70 - 120 mg/dL 08/04/2023 12:49 AM EST [facility] Albumin 3.7(L) 3.8 - 5.0 g/dL 08/04/2023 12:49 AM EST [facility] AST 8(L) 10 - 35 U/L 08/04/2023 12:49 AM EST [facility] Alkaline Phosphatase 117 35 - 130 U/L 08/04/2023 12:49 AM EST [facility] Bilirubin, Total 0.4 <=1.2 mg/dL 08/04/2023 12:49 AM EST [facility] Calcium 9.4 8.4 - 10.2 mg/dL 08/04/2023 12:49 AM EST [facility] Protein 6.2 6.0 - 8.3 g/dL 08/04/2023 12:49 AM EST [facility] ALT 10 10 - 35 U/L 08/04/2023 12:49 AM EST [facility] Blood Venous blood specimen / Unknown Venipuncture / Unknown 08/03/2023 2:06 PM EST 08/03/2023 2:06 PM EST Leslie Forbes MD LAB BLOOD OR DERABLES [facility] [address] [place] [address] * (ABNORMAL) HEMOGLOBIN A1C (08/03/2023 2:06 PM EST) Hemoglobin A1C 10.5(H) 4.0 - 5.6 % 08/04/2023 12:52 AM EST [facility] Comment:The use of HbA1c to monitor glycemic status is based on normal hemoglobin and HbA composition. This test should not be used in patients with abnormal hemoglobin that affects the half life of the red blood cell or the in vivo glycation rates. Estimated Average Glucose 255(H) <126 mg/dL 08/04/2023 12:52 AM EST [facility] Blood Venous blood specimen / Unknown Venipuncture / Unknown 08/03/2023 2:06 PM EST 08/03/2023 2:06 PM EST Leslie Forbes MD LAB BLOOD OR DERABLES LAB[facility]ATORY [facility] [address] [place] [address] documented in this encounter Visit Diagnoses Diagnosis Type 2 diabetes mellitus with hemoglobin A1c goal of less than 8.0% (HCC)- Primary Hypothyroidism due to acquired atrophy of thyroid Hyperlipidemia, unspecified hyperlipidemia type HTN, goal below 150/90 Vitamin D deficiency Unspecified vitamin D deficiency Gastro-esophageal reflux disease without esophagitis Esophageal reflux Hemiplegia and hemiparesis 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 (HCC) Depression, major, in remission (HCC) Major depressive disorder, single episode, in partial or unspecified remission History of nonadherence to medical treatment Personal history of noncompliance with medical treatment, presenting hazards to health Unspecified abnormalities of gait and mobility documented in this encounter Care Teams Network Security Officer Relationship Specialty Start Date End Date Leslie Forbes MD [address] [place] [address] PCP - General Family Medicine 07/28/22 documented as of this encounter
--- OUTSIDE RECORDS SUMMARY | 2023-10-18 12:52 | External Medical Summary | Summary of Care ---
Author Name Unknown Organization [facility] Address [address] [place] [address] Phone [phone] Care Team Providers Care Co Founder And Cto Name Role Phone Leslie Forbes MD Primary Care Provid er Reason for Visit * Reason Comments Outpatient Testing Encounter Details Date Type Department Care Team (Late st Contact Info) Description 08/03/2023 2:30 PM EST Laboratory Laboratory, [place] [address] [place] [address] [place] [address] [place] [address] Type 2 diabetes mellitus with hemoglobin A1c goal of less than 8.0% ([facility]); Hypothyroidism due to acquired atrophy of thyroid; Hyperlipidemia, unspecified hyperlipidemia type; HTN, goal below 150/90; Vitamin D deficiency; Gastro-esophageal reflux disease without esophagitis; Hemiplegia and hemiparesis 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 ([facility]); Depression, major, in remission ([facility]); History of nonadherence to medical treatment; Unspecified abnormalities of gait and mobility Allergies No known active allergiesdocumented as of this encounter (statuses as of 08/03/2023) Medications Medication Sig Dispensed Refills Start Date [...] as needed for Diarrhea. 0 Active Nystatin 676220 UNIT/GM External CreamIndications:C andidal skin infection Apply [...] E11.9 400 Each 3 06/22/2022 Active Nystatin 287037 UNIT/GM External Powder (Nystop)Indication s:Candidal skin infection [...] as of this encounter (statuses as of 08/03/2023) Active Problems Problem Noted Date Diagnosed Date [...] 05/21/2018 Last Assessment & Plan: TSH 07/28/22--20.30. [place] d/t noncompliance with taking levoxyl. Son reports he is giving it to her in am 30 min prior to other meds. 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 200mcg y Unspecified abnormalities [...] as of this encounter (statuses as of 08/03/2023) Resolved Problems Problem Noted Date Diagnosed Date [...] as of this encounter (statuses as of 08/03/2023) Immunizations Name Administration Dates Next Due Pneumococcal Conjugate Vacc, 13 Valent (Prevnar) 04/02/2016 Pneumococcal Polysaccharide PPV23 (Pneumovax) 06/30/2011 SEASONAL INFLUENZA, PF, 6 M & Above, IM , (FLULAVAL or FLUZONE) 08/08/2022,06/05/2020,06/02/2019,05/21,08/21/2017 Seasonal Influenza, Quadriva lent Hd (Fluzone [...] on file documented as of this encounter Plan of Treatment Upcoming Encounters Date Type Department Care Team (Late st Contact Info) Description 08/03/2023 2:40 PM EST Laboratory Laboratory, [place] [address] [place] [phone] [facility] [address], [place] [phone] Arrived 08/21/2023 1:30 PM EST Office Visit Pharmacy, [place] [address] [place] [address] [facility] [address] [place], [place] [phone] 12/04/2023 2:40 PM EDT Office Visit Family Practice, [place] [address] [place] [address] Leslie Forbes MD [address] [place] [address] Pending Results Name Type Priority Associated Diagnoses Date /Time TSH WITH FREE T4 IF INDICATED Lab Routine Hypothyroidism due to acquired atrophy of thyroid 08/03/2023 2:06 PM EST HEMOGLOBIN A1C Lab Routine Type 2 diabetes [...] treatment Unspecified abnormalities of gait and mobility 08/03/2023 2:06 PM EST COMPREHENSIVE METABOLIC PANEL Lab Routine Type 2 [...] treatment Unspecified abnormalities of gait and mobility 08/03/2023 2:06 PM EST Health Maintenance Due Date Last Done Comments [...] 1 10/14/2020, 09/13/2019, Additional history exists HbA1c 10/04/2023 04/03/2023, 11/29, 07/28/2022, Additional history exists GFR 12/10/2023 12/09/2022, 07/02, 01/20/2022, Additional history exists TSH 04/03/2024 04/03/2023, 11/29, 07/28/2022, Additional history exists Pneumococcal Vaccine: 65+ Years [...] Not on filedocumented as of this encounter Visit Diagnoses Diagnosis Type 2 [...] mobility documented in this encounter Care Teams Co Founder And Cto Relationship Specialty Start Date End Date Leslie Forbes MD [address] [place] [address] PCP - General Family Medicine 07/28/22 documented as of this encounter
--- OUTSIDE RECORDS SUMMARY | 2023-10-18 12:52 | External Medical Summary | Summary of Care ---
Author Name Unknown Organization [facility] Address [address] [place] [address] Phone [phone] Care Team Providers Care Manager Social Services Name Role Phone Leslie Forbes MD Primary Care Provid er Reason for Visit * Reason Comments Outpatient Testing Encounter Details Date Type Department Care Team (Late st Contact Info) Description 08/03/2023 2:40 PM EST Laboratory Laboratory, [place] [address] [place] [address] [place] [address] [place] [address] Arrived Allergies No known active allergiesdocumented as of [...] as needed for Diarrhea. 0 Active Nystatin 176212 UNIT/GM External CreamIndications:C andidal skin infection Apply [...] E11.9 400 Each 3 06/22/2022 Active Nystatin 493227 UNIT/GM External Powder (Nystop)Indication s:Candidal skin infection [...] 05/21/2018 Last Assessment & Plan: TSH 07/28/22--20.30. [place] d/t noncompliance with taking levoxyl. Son reports he is giving it to her in am 30 min prior to other meds. 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 200mcg y Unspecified [...] Upcoming Encounters Date Type Department Care Team (Latest Contact Info) Description 08/03/2023 2:30 PM EST Laboratory Laboratory, [place] [address] [place] [address] [place] [address] [place] [address] Type 2 diabetes mellitus with hemoglobin A1c goal of less than 8.0% (HCC); Hypothyroidism due to acquired atrophy of thyroid; Hyperlipidemia, unspecified hyperlipidemia type; HTN, goal below 150/90; Vitamin D deficiency; Gastro-esophageal reflux disease without esophagitis; Hemiplegia and hemiparesis 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 (HCC); Depression, major, in remission ([facility]); History of nonadherence to medical treatment; Unspecified abnormalities of gait and mobility 08/21/2023 1:30 PM EST Office Visit Pharmacy, [place] [address] [place] [address] [facility] [address] [place] [address] 12/04/2023 2:40 PM EDT Office Visit Family Practice, [place] [address] [place] [address] Leslie Forbes MD [address] [place] [address] Health Maintenance Due Date Last Done Comments [...] filedocumented as of this encounter Care Teams Manager Social Services Relationship Specialty Start Date End Date Leslie Forbes MD [address] [place] [facility] [place] [address] PCP - General Family Medicine 07/28/22 documented as of this encounter
--- OUTSIDE RECORDS SUMMARY | 2023-10-18 12:52 | External Medical Summary | Summary of Care ---
Author Name Unknown Organization [facility] Address [address] [place] [address] Phone [phone] Care Team Providers Care Campaign Marketing Manager Name Role Phone Leslie Forbes MD Primary Care Provid er Reason for Visit * Reason Onset Date Comments Home Health 08/14/2023 Encounter Details Date Type Department Care Team (Late st Contact Info) Description 08/14/2023 Computer Support Specialist Instructor Telephone Care Coordination and Integration [address] [place], [place] [phone] Lyla Tinajero RN [address] [place], [place] [phone] Home Health Allergies No known active allergiesdocumented as of this encounter (statuses as of 08/14/2023) Medications Medication Sig Dispensed Refills Start Date [...] as needed for Diarrhea. 0 Active Nystatin 172346 UNIT/GM External CreamIndications:C andidal skin infection Apply [...] E11.9 400 Each 3 06/22/2022 Active Nystatin 180370 UNIT/GM External Powder (Nystop)Indication s:Candidal skin infection [...] as of this encounter (statuses as of 08/14/2023) Active Problems Problem Noted Date Diagnosed Date [...] 05/21/2018 Last Assessment & Plan: TSH 07/28/22--20.30. [place] d/t noncompliance with taking levoxyl. Son reports [...] as of this encounter (statuses as of 08/14/2023) Resolved Problems Problem Noted Date Diagnosed Date [...] as of this encounter (statuses as of 08/14/2023) Immunizations Name Administration Dates Next Due Pneumococcal [...] Telephone Encounter - Lyla Tinajero RN - 08/14/2023 10:08 AM EST Called [facility], they will be following patient for wound care, referral faxed to them, left a message for Disha/caregiver to make her aware Lyla Tinajero, RN documented in this encounter Plan of Treatment Upcoming Encounters Date Type Department Care Team (Late st Contact Info) Description 08/21/2023 1:30 PM EST Office Visit Pharmacy, [place] [address] [place] [address] [place] [facility] [address] [place] [facility] [place] [address] 12/04/2023 2:40 PM EDT Office Visit Family Practice, [place] [address] [place] [facility] [place] [phone] Leslie Forbes MD [address] [place], [place] [phone] Health Maintenance Due Date Last Done Comments [...] 07/28/2022, Additional history exists TSH 08/03/2024 08/03/2023, 0811/2022, 12/09/2022, Additional history exists Pneumococcal Vaccine: 65+ [...] filedocumented as of this encounter Care Teams Campaign Marketing Manager Relationship Specialty Start Date End Date Leslie Forbes MD [address] [place] [address] PCP - General Family Medicine 07/28/22 documented as of this encounter
--- OUTSIDE RECORDS SUMMARY | 2023-10-18 12:52 | External Medical Summary | Summary of Care ---
Author Name Unknown Organization [facility] Address [address] [place] [address] Phone [phone] Care Team Providers Care Manufacturing Production Manager Name Role Phone Leslie Forbes MD Primary Care Provid er Encounter Details Date Type Department Care Team ([facility] st Contact Info) Description 08/29/2023 Telephone Pharmacy Call Center [address] [place] [address] [facility] [address] [place] [address] Allergies No known active allergiesdocumented as of this encounter (statuses as of 08/29/2023) Medications Medication Sig Dispensed Refills Start Date [...] as needed for Diarrhea. 0 Active Nystatin 042978 UNIT/GM External CreamIndications:C andidal skin infection Apply [...] E11.9 400 Each 3 06/22/2022 Active Nystatin 578393 UNIT/GM External Powder (Nystop)Indication s:Candidal skin infection [...] as of this encounter (statuses as of 08/29/2023) Active Problems Problem Noted Date Diagnosed Date [...] 05/21/2018 Last Assessment & Plan: TSH 07/28/22--20.30. [place] d/t noncompliance with taking levoxyl. Son reports he is giving it to her in am 30 min prior to other meds. 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 LMOM for patient to return call to complete medication review with a pharmacist. Thank you, Valeria SaezD Registrar Assistant 08/29/2023, 10:36 AM documented in this encounter Plan of Treatment Upcoming Encounters Date Type Department Care Team (Late st Contact Info) Description 12/04/2023 2:40 PM EDT Office Visit [facility] [address] [place] [facility] [place] [address] Leslie Forbes MD [address] [place] [address] Health Maintenance Due Date Last Done [...] filedocumented as of this encounter Care Teams Manufacturing Production Manager Relationship Specialty Start Date End Date Leslie Forbes MD [address] [place] [address] PCP - General Family Medicine 07/28/22 documented as of this encounter
--- OUTSIDE RECORDS SUMMARY | 2023-10-18 12:52 | External Medical Summary | Summary of Care ---
Author Name Unknown Organization [facility] Address [address] [place] [address] Phone [phone] Care Team Providers Care Structurer Name Role Phone Leslie Forbes MD Primary [...] side (HCC) Leslie Forbes MD [address] [place] [address] Referral ID Status Reason Start Date Expiration Date Visits Requested Visits Authorized [id number] Authorized Specialty Services Required 08/03/2023 99 99 Question Answer Referral Priority Within 30 days (routine) Where should this appointment be scheduled? [facility] Department: Primary Care Reason for Referral: DM Target A1c: < 8 Comments Pharmacist Medication Therapy Management: Minimum frequency patient should be seen in person for medication management: as appropriate per clinical condition and patient status By my signature, I understand that my patient Michelle Diamond will have her medication therapy managed by the [facility] ([facility]) per established policies, procedures, and protocols. I also certify that this referral may serve as an initiation of service for the management of drug therapy in the above noted patient. [facility] providers will be responsible for scheduling patient visits, obtaining appropriate laboratory studies, and adjusting medication management therapy per patient's need, in addition to those roles spelled out in the clinic policy, procedures, and drug management protocols. I understand that the service provided by the [facility] is voluntary and have informed patient that they can refuse the service at their discretion. I am aware that the [facility] Clinic will provide me with a copy of the patient encounter via my appening [employer]. I authorize the [facility] Clinic to carry out these activities on my behalf. I consider this program to be a necessary part of the patient's medical care. eLslie Forbes MD Reason for Visit * Reason Comments Follow Up Will need Klorcon re filled and about a glucose monitor Encounter Details Date Type Department Care Team (Latest Contact Info) Description 08/03/2023 1:20 PM EST Office Visit [facility] [address] [place] [address] Leslie Forbes MD [address] [place] [address] Type 2 diabetes mellitus with hemoglobin A1c goal of less than 8.0% ([facility])*; Hypothyroidism due to acquired atrophy of thyroid; Hyperlipidemia, unspecified hyperlipidemia type; HTN, goal below 150/90; Vitamin D deficiency; Gastro-esophageal reflux disease without esophagitis; Hemiplegia and hemiparesis 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 ([facility]); Depression, major, in remission ([facility]); History of nonadherence to medical [...] as needed for Diarrhea. 0 Active Nystatin 973645 UNIT/GM External CreamIndications :Candidal skin infection Apply [...] E11.9 400 Each 3 06/22/2022 Active Nystatin 728254 UNIT/GM External Powder (Nystop)Indicati ons:Candidal skin infection [...] 05/21/2018 Last Assessment & Plan: TSH 07/28/22--20.30. [place] d/t noncompliance with taking levoxyl. Son reports he is giving it to her in am 30 min prior to other meds. 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 Type 2 diabetes mellitus with hemoglobin A1c goal of less than 8.0% ([facility]) (Primary) - HEMOGLOBIN A1C; Future; Expected date: [...] Before Next Visit | Check-out note: Jailene ([facility]) wants to be notified BEFORE this patient checks out so that she can put her on [facility] schedule thanks! If needed, prefers contact by: [...] medical treatment Z91.199 Depression, major, in remission ([facility]) F32.5 Vitamin D deficiency E55.9 Type 2 diabetes mellitus with hemoglobin A1c goal of less than 8.0% ([facility]) E11.9 HTN, goal below 150/90 I10 Primary osteoarthritis involving multiple joints M15.9 Chronic diarrhea K52.9 Unspecified abnormalities of gait and mobility R26.9 Hemiplegia and hemiparesis 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 ([facility]) I69.354 Hypothyroidism due to acquired atrophy of [...] a day as needed for Diarrhea. Nystatin 030224 UNIT/GM External Cream Apply topically to affected [...] directed DX E11.9 400 Each 3 Nystatin 653805 UNIT/GM External Powder (Nystop) Apply topically to [...] of separately billed services. Leslie Forbes MD [address] [address] There are no Patient Instructions on file [...] Description 08/03/2023 2:30 PM EST Laboratory Laboratory, [place] [address] [place] [address] [facility] [address] [place] [address] Type 2 diabetes mellitus with hemoglobin A1c goal of less than 8.0% (HCC); Hypothyroidism due to acquired atrophy of thyroid; Hyperlipidemia, unspecified hyperlipidemia type; HTN, goal below 150/90; Vitamin D deficiency; Gastro-esophageal reflux disease without esophagitis; Hemiplegia and hemiparesis 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 (HCC); Depression, major, in remission ([facility]); History of nonadherence to medical treatment; Unspecified abnormalities of gait and mobility 08/03/2023 2:40 PM EST Laboratory Laboratory, [place] [address] [place] [address] [place] [address] [place] [address] Arrived 08/21/2023 1:30 PM EST Office Visit Pharmacy, [place] [address], [place] [phone] [facility] [address] [place] [address] 12/04/2023 2:40 PM EDT Office Visit Family [facility], [place] [address] [place] [address] Leslie Forbes MD [address] [place] [address] Pending Results Name Type Priority Associated Diagnoses Date /Time HEMOGLOBIN A1C Lab Routine Type 2 diabetes [...] gait and mobility 08/03/2023 2:06 PM EST Scheduled Orders Name Type Priority Associated Diagnoses [...] Unspecified abnormalities of gait and mobility Expected: 08/03/2023 (Approximate), Expires: 08/02/2024 HEMOGLOBIN A1C Lab Routine Type 2 diabetes [...] Unspecified abnormalities of gait and mobility Expected: 08/03/2023 (Approximate), Expires: 08/02/2024 COMPREHENSIVE METABOLIC PANEL Lab Routine Type 2 [...] health Unspecified abnormalities of gait and mobility Type 2 diabetes mellitus with hemoglobin A1c [...] mobility documented in this encounter Care Teams Structurer Relationship Specialty Start Date End Date Leslie Forbes MD [address] [place] [address] PCP - General Family Medicine 07/28/22 documented as of this encounter
--- OUTSIDE RECORDS SUMMARY | 2023-10-18 12:52 | External Medical Summary | Summary of Care ---
Author Name Unknown Organization [facility] Address [address] [place] [address] Phone [phone] Care Team Providers Care Photoengraving Photographer Name Role Phone Leslie Forbes MD Primary Care Provid er Reason for Visit * Reason Comments Outpatient Testing Encounter Details Date Type Department Care Team (Late st Contact Info) Description 08/03/2023 2:30 PM EST Laboratory Laboratory, [place] [address] [place] [address] [place] [address] [place] [address] Type 2 diabetes mellitus with hemoglobin A1c goal of less than 8.0% ([facility]); Hypothyroidism due to acquired atrophy of thyroid; Hyperlipidemia, unspecified hyperlipidemia type; HTN, goal below 150/90; Vitamin D deficiency; Gastro-esophageal reflux disease without esophagitis; Hemiplegia and hemiparesis 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 ([facility]); Depression, major, in remission ([facility]); History of nonadherence to medical [...] as needed for Diarrhea. 0 Active Nystatin 931228 UNIT/GM External CreamIndications:C andidal skin infection Apply [...] E11.9 400 Each 3 06/22/2022 Active Nystatin 968035 UNIT/GM External Powder (Nystop)Indication s:Candidal skin infection [...] 05/21/2018 Last Assessment & Plan: TSH 07/28/22--20.30. [place] d/t noncompliance with taking levoxyl. Son reports he is giving it to her in am 30 min prior to other meds. They did not pickle maker new dose levoxyl 200mcg y Unspecified abnormalities [...] Description 08/03/2023 2:40 PM EST Laboratory Laboratory, [place] [address] [place] [id number] [facility] [address], [place] [id number] Arrived 08/21/2023 1:30 PM EST Office Visit Pharmacy, [place] [address] [place] [address] [facility] [address], [place] [id number] 12/04/2023 2:40 PM EDT Office Visit Family Practice, [place] [address] [place] [address] Leslie Forbes MD [address] [place] [address] Pending Results Name Type Priority [...] mobility documented in this encounter Care Teams Photoengraving Photographer Relationship Specialty Start Date End Date Leslie Forbes MD [address] [place] [address] PCP - General Family Medicine 07/28/22 documented as of this encounter
--- OUTSIDE RECORDS SUMMARY | 2023-10-18 12:52 | External Medical Summary | Summary of Care ---
Author Name Unknown Organization [facility] Address [address] [place] [address] Phone [phone] Care Team Providers Care Collection Coordinator Name Role Phone Leslie Forbes MD Primary Care Provid er Reason for Visit * Reason Onset Date Comments Referral 08/12/2023 Encounter Details Date Type Department Care Team (Late st Contact Info) Description 08/12/2023 Telephone [facility] [address] [place] [address] Leslie Forbes MD [address] [place] [address] Referral Allergies No known active allergiesdocumented as of [...] as needed for Diarrhea. 0 Active Nystatin 211351 UNIT/GM External CreamIndications:C andidal skin infection Apply [...] E11.9 400 Each 3 06/22/2022 Active Nystatin 346296 UNIT/GM External Powder (Nystop)Indication s:Candidal skin infection [...] 05/21/2018 Last Assessment & Plan: TSH 07/28/22--20.30. [place] d/t noncompliance with taking levoxyl. Son reports he is giving it to her in am 30 min prior to other meds. They did not picker / packer new dose levoxyl 200mcg y Unspecified abnormalities [...] Telephone Encounter - Leslie Forbes MD - 08/13/2023 3:30 PM EST Duplicate see other enc * Telephone Encounter - Aileen Castro OSA - 08/12/2023 3:36 PM EST Spoke to Ms Gauthier requesting home health orders for pt to be faxed to [facility] for rashin groin and o her back, ot needs treatment, please call caregiver, thanks documented in this encounter Plan of Treatment Upcoming Encounters Date Type Department Care Team (Late st Contact Info) Description 08/21/2023 1:30 PM EST Office Visit Pharmacy, [place] [address] [facility] [place] [id number] [place] [facility] [address] [place] [facility] [place] [address] 12/04/2023 2:40 PM EDT Office Visit Family Practice, [place] [address] [place] [facility] [place] [address] Leslie Forbes MD [address] [place] [address] Health Maintenance Due Date Last [...] filedocumented as of this encounter Care Teams Collection Coordinator Relationship Specialty Start Date End Date Leslie Forbes MD [address] [place] [address] PCP - General Family Medicine 07/28/22 documented as of this encounter
--- OUTSIDE RECORDS SUMMARY | 2023-10-18 12:52 | External Medical Summary | Summary of Care ---
Author Name Unknown Organization [facility] Address [address] [place] [address] Phone [phone] Care Team Providers Care Supervisor Phosphorus Processing Name Role Phone Leslie Forbes MD Primary Care Provid er Reason for Visit * Reason Onset Date Comments Health Maintenance 08/13/2023 Encounter Details Date Type Department Care Team (Late st Contact Info) Description 08/13/2023 Telephone [facility] [address] [place] [address] Leslie Forbes MD [address] [place] [address] Health Maintenance Allergies No known active allergiesdocumented as [...] as needed for Diarrhea. 0 Active Nystatin 630212 UNIT/GM External CreamIndications:C andidal skin infection Apply [...] E11.9 400 Each 3 06/22/2022 Active Nystatin 515225 UNIT/GM External Powder (Nystop)Indication s:Candidal skin infection [...] 05/21/2018 Last Assessment & Plan: TSH 07/28/22--20.30. [place] d/t noncompliance with taking levoxyl. Son reports he is giving it to her in am 30 min prior to other meds. They did not brass pickler new dose levoxyl 200mcg y Unspecified abnormalities [...] encounter Miscellaneous Notes * Telephone Encounter - Sammi Knowles LÓPEZ - 08/13/2023 10:04 AM EST Care Gaps Comprehensive Care Outreach Last Office/Telemedicine Visit: 08/03/2023 (in office), 11/29/2020 (telemedicine) Next Office Visit: 12/04/2023 Hemoglobin AIC Results: Lab Results Component Value Date/Time HEMOGLOBIN A1C - [facility] 10.5 (H) 08/03/2023 02:06 PM HEMOGLOBIN A1C - [facility] 8.2 (H) 04/03/2023 03:05 PM HEMOGLOBIN A1C - [facility] 8.2 (H) 12/09/2022 02:19 PM HEMOGLOBIN A1C - [facility] 7.9 (H) 06/05/2020 02:05 PM HEMOGLOBIN A1C - [facility] 10.1 (H) 09/13/2019 01:50 PM HEMOGLOBIN A1C - [facility] 11.8 (H) 07/26/2019 02:06 PM Reviewed Health Maintenance below: Health Maintenance Topic Date Due COVID-19 Vaccine (1) Never done Zoster Vaccines (1 of 2) Never done Hepatitis B (1 of 3 - Risk 3-dose series) Never done Diabetic Eye Exam 12/23/2013 Albumin/Creatinine Ratio 04/08/2014 DXA Scan 03/31/2019 Eye dexa Labs already ordered Care Gap Outreach Action Taken: Left message documented in this encounter Plan of Treatment Upcoming Encounters Date Type Department Care Team (Late st Contact Info) Description 08/21/2023 1:30 PM EST Office Visit Pharmacy, [place] [address] [place] [facility] [place] [address] [facility] [address] [place] [facility] [place] [address] 12/04/2023 2:40 PM EDT Office Visit [facility], [place] [address] [place] [facility] [place] [address] Leslie Forbes MD [address] [place] [facility] [place] [address] Health Maintenance Due Date Last Done Comments [...] filedocumented as of this encounter Care Teams Supervisor Phosphorus Processing Relationship Specialty Start Date End Date Leslie Forbes MD [address] [facility] [place] [address] PCP - General Family Medicine 07/28/22 documented as of this encounter
--- OUTSIDE RECORDS SUMMARY | 2023-10-18 12:52 | External Medical Summary | Summary of Care ---
Author Name Unknown Organization [facility] Address [address] [place] [address] Phone [phone] Care Team Providers Care Registered Respiratory Therapist Name Role Phone Leslie Forbes MD Primary Care Provid er Reason for Referral * Evaluate & Treat - Unlimited Visits (Within 10 days (routine)) - Authorized Specialty Diagnoses / Procedures Referred By Cece griffin Referred To Contact HOME CARE / Home Care Diagnoses Rash and nonspecific skin eruption Poorly controlled disease Leslie Forbes MD [address] [place] [address] Referral ID Status Reason Start Date Expiration Date Visits Requested Visits Authorized [id number] Authorized Specialty Services Required 3 999 999 Question Answer Referral Priority Within 10 days (routine) Where should this appointment be scheduled? [facility] Comments Documentation of Khti-lp-Nuaw Encounter Addendum Patient Name: Michelle Pitt I certify that this patient is under my care and that I, or a nurse practitioner or physician's therapeutic recreation assistant working with me, had a kezm-ks-[id number] encounter that meets the physician kzkw-xd-[id number] encounter requirements with this patient on: 08/03 23 The encounter with the patient was in whole, or in part, for the following medical condition, which is the primary reason for home health care (List medical condition): Wound care I certify that, based on my findings, the following services are medically necessary home health services: Nursing To provide the following care/treatments: (All hospitalists not following the patient after discharge should complete this section): Primary Care Physician to follow home care plan of care after discharge: My clinical findings support the need for the above services because: painful rash Further, I certify that my clinical findings support that this patient is homebound (i.e. Absences from home require considerable and taxing effort and are for medical reasons or yarsanism services or infrequently or of short duration when for other reason) because: Physician Signature: Date of Signature: Physician Printed Name: Lyla Tinajero RN Reason for Visit * Reason Onset Date Comments Rash in Genital Area 08/13/2023 Encounter Details Date Type Department Care Team (Latest Contact Info) Description 08/13/2023 Jour[facility] Pressman Telephone Care Coordination and Integration [address] [place] [address] Lyla Tinajero RN [address] [place] [address] Rash in Genital Area Allergies No known active allergiesdocumented as of [...] as needed for Diarrhea. 0 Active Nystatin 289749 UNIT/GM External CreamIndications:C andidal skin infection Apply [...] E11.9 400 Each 3 06/22/2022 Active Nystatin 694158 UNIT/GM External Powder (Nystop)Indication s:Candidal skin infection [...] 05/21/2018 Last Assessment & Plan: TSH 07/28/22--20.30. [place] d/t noncompliance with taking levoxyl. Son reports he is giving it to her in am 30 min prior to other meds. They did not lease picker new dose levoxyl 200mcg y Unspecified [...] Encounter - Leslie Forbes MD - 08/13/2023 2:37 PM EST signed * Telephone Encounter - Lyla Tinajero RN - 08/13/2023 2:20 PM EST Disha Pond/caregiver for Michelle has been calling in stating that Michelle has a painful rash in her groin, on her side & back of legs, in the past we have gotten home health to come in to assess/treat the area, can you please complete & sign the pended home health order? Thanks Lyla Tinajero RN documented in this encounter Plan of Treatment Upcoming Encounters Date Type Department Care Team (Late st Contact Info) Description 08/21/2023 1:30 PM EST Office Visit Pharmacy, [place] [address] [place] [address] [facility] [address] [place] [address] 12/04/2023 2:40 PM EDT Office Visit [facility] [address] [place] [address] Leslie Forbes MD [address] [place] [address] Scheduled Referrals Name Type Priority Associated Diagnoses Orde r Schedule HOME HEALTH REFERRAL OP Referral Within 10 days (routine) Rash and nonspecific skin eruption Poorly controlled disease Ordered: 08/13/2023 Health Maintenance Due Date Last Done Comments [...] as of this encounter Visit Diagnoses Diagnosis Rash and nonspecific skin eruption- Primary Rash and other nonspecific skin eruption Poorly controlled disease Other ill-defined conditions documented in this encounter Care Teams Registered Respiratory Therapist Relationship Specialty Start Date End Date Leslie Forbes MD [address] [place] [address] PCP - General Family Medicine 07/28/22 documented as of this encounter
--- OUTSIDE RECORDS SUMMARY | 2023-10-18 12:52 | External Medical Summary | Summary of Care ---
Author Name Unknown Organization [facility] Address [address] [facility] [place] [address] Phone [phone] Care Team Providers Care Kennel Hand Name Role Phone Leslie Forbes MD Primary Care Provid er Reason for Visit * Reason Onset Date Comments [facility]: Maintenance 08/12/2023 Encounter Details Date Type Department Care Team (Late st Contact Info) Description 08/12/2023 Telephone [facility] [address] [place] [address] [facility], Nurse [facility] [address] [place] [address] [facility]: Maintenance Allergies No known active allergiesdocumented as of this encounter (statuses as of 08/12/2023) Medications Medication Sig Dispensed Refills Start Date [...] as needed for Diarrhea. 0 Active Nystatin 577542 UNIT/GM External CreamIndications:C andidal skin infection Apply [...] E11.9 400 Each 3 06/22/2022 Active Nystatin 067568 UNIT/GM External Powder (Nystop)Indication s:Candidal skin infection [...] as of this encounter (statuses as of 08/12/2023) Active Problems Problem Noted Date Diagnosed Date [...] 05/21/2018 Last Assessment & Plan: TSH 07/28/22--20.30. [place] d/t noncompliance with taking levoxyl. Son reports he is giving it to her in am 30 min prior to other meds. They did not pick pulling machine operator new dose levoxyl 200mcg y [...] as of this encounter (statuses as of 08/12/2023) Resolved Problems Problem Noted Date Diagnosed Date [...] as of this encounter (statuses as of 08/12/2023) Immunizations Name Administration Dates Next Due Pneumococcal [...] encounter Miscellaneous Notes * Telephone Encounter - Natalie Ramires RN [...] reestablishing care of patient. Patient graduated from [facility] 11/2022 and was referred to PCP/CM [facility] Patient does not have HH services. Caregiver advised to follow up with PCP regarding above Routing to PCP/CM Peña Ramires RN, BSN documented in this encounter Plan of Treatment Upcoming Encounters Date Type Department Care Team (Late st Contact Info) Description 08/21/2023 1:30 PM EST Office Visit Pharmacy, [place] [address] [place] [address] [facility] [address] [place] [address] 12/04/2023 2:40 PM EDT Office Visit [facility], [place] [address] [place] [address] Leslie Forbes MD [address] [place] [address] Health Maintenance Due Date Last Done Comments [...] 07/28/2022, Additional history exists TSH 08/03/2024 08/03/2023, 080 11/2022, 12/09/2022, Additional history exists Pneumococcal Vaccine: [...] filedocumented as of this encounter Care Teams Kennel Hand Relationship Specialty Start Date End Date Leslie Forbes MD [address] [place] [address] PCP - General Family Medicine 07/28/22 documented as of this encounter
--- OUTSIDE RECORDS SUMMARY | 2023-10-18 12:53 | External Medical Summary ---
Author Name Unknown Address Unknown Organization [id number]:[facility]AT[facility] [place] - [address] [place] [address] Laboratory Report Ordering Provider Test Date Status DICK OLIVEIRAO 08/03/2023 14:06:44 Final Observation Date Value Abnormality Reference (Units ) Status TSH 08/03/2023 14:06:44 19.20 Above high normal 0. 27-4.20 (uIU/mL) Final Performing Location LABORATORY C - [address] [place] [address]
--- OUTSIDE RECORDS SUMMARY | 2023-10-18 12:53 | External Medical Summary ---
Author Name Unknown Address Unknown Organization [id number][place] [place] [address] [facility] [place] [address] Laboratory Report Ordering Provider Test Date Status JOSE LUIS OLIVEIRA 08/03/2023 14:06:44 Final Observation Date Value Abnormality Reference (Units ) Status BUN 08/03/2023 14:06:44 14 6-20 (mg/dL) Final Creatinine 08/03/2023 14:06:44 0.8 0.5-1.0 (mg/dL) Final Glomerular filtration rate/1.73 sq M.predicted [Volume Rate/Area] in Serum, Plasma or Blood by Creatinine-based formula (CKD-EPI) 08/03/2023 14:06:44 75 >=60 (mL/min) Final eGFR is calculated based on the CKD-EPI 2020 equation SODIUM 08/03/2023 14:06:44 136 135-146 (m mol/L) Final Potassium 08/03/2023 14:06:44 4.2 3.5-5.1 (m mol/L) Final Cl 08/03/2023 14:06:44 95 Below low normal 98- 107 (mmol/L) Final CO2 08/03/2023 14:06:44 23 22-32 (mmo l/L) Final Anion gap 08/03/2023 14:06:44 18 Above high normal 7- 15 (mmol/L) Final Glucose 08/03/2023 14:06:44 499 Above high normal 70 -120 (mg/dL) Final Albumin 08/03/2023 14:06:44 3.7 Below low normal 3.8 -5.0 (g/dL) Final AST (Aspartate aminotransferase) 08/03/2023 14:06:44 8 Below low normal 10-35 (U/L) Final Alk Phos 08/03/2023 14:06:44 117 35-130 (U/ L) Final Bilirubin, Total 08/03/2023 14:06:44 0.4 <=1 .2 (mg/dL) Final Calcium 08/03/2023 14:06:44 9.4 8.4-10.2 ( mg/dL) Final Protein 08/03/2023 14:06:44 6.2 6.0-8.3 (g /dL) Final ALT (Alanine aminotransferase) 08/03/2023 14:06:44 10 10-35 (U/L) Tito carrion Performing Location [facility] [place] [address] [facility] [address]
--- OUTSIDE RECORDS SUMMARY | 2023-10-18 12:53 | External Medical Summary ---
Author Name Unknown Address Unknown Organization [id number][place] [place] [address] [facility] [address] Laboratory Report Ordering Provider Test Date Status ROXANNEJOSE LUIS 08/03/2023 14:06:44 Final Observation Date Value Abnormality Reference (Units ) Status HbA1C 08/03/2023 14:06:44 10.5 Above high normal 4. 0-5.6 (%) Final The use of HbA1c to monitor glycemic status is based on normal hemoglobin and HbA composition. This test should not be used in patients with abnormal hemoglobin that affects the half life of the red blood cell or the in vivo glycation rates. Glucose, estimated average 08/03/2023 14:06:44 255 Above high normal <126 (mg/dL) Tito carrion Performing Location [facility] [place] [address] [facility] [address]
--- OUTSIDE RECORDS SUMMARY | 2023-10-18 12:53 | External Medical Summary | Summary of Care ---
Author Name Unknown Organization [facility] Address [address] [place] [address] Phone [phone] Care Team Providers Care Police Service Technician Name Role Phone Roxanne Amaya MD Primary Care Provid er Reason for Visit * Reason Comments eRx-Medication Refill Encounter Details Date Type Department Care Team Description 06/13/2023 Refill [facility] [address] [place] [address] Roxanne Amaya MD [address] [place] [address] Type 2 diabetes mellitus with hemoglobin A1c goal of less than 7.0% (HCC); HTN, goal below 150/90; Type 2 diabetes mellitus with hemoglobin A1c goal of less than 8.0% (HCC) Allergies No known active allergiesdocumented as of this encounter (statuses as of 06/15/2023) Medications Medication Sig Dispensed Refills Start Date End Date Status ACETAMINOPHEN 325 MG PO TABS Take 2 Tablets by mouth every 6 hours as needed. 100 Tab 0 1 Active [facility] SUPREME DIAPERS S5 MISCIndications: Unspecified urinary incontinence,Fec al urgency use 6-7 diapers per day 4 Box 3 1 Active VITAMIN D 2000 UNITS PO TABSIndications: Vitamin D deficiency 1 TABLET DAILY 30 Tab 0 3 Active ECOTRIN LOW STRENGTH 81 MG PO TBECIndications: DM type 2, goal A1c below 7,HTN, goal below 140/90 One pill by mouth once a day 100 Tab 5 4 Active Blood Glucose Monitoring Suppl (ONE TOUCH ULTRA SYSTEM KIT) W/DEVICE KIT Use up to four times a day as directed DX 250.0 1 Kit 0 5 Active Alcohol Swabs (PHARMACIST CHOICE ALCOHOL) PADSIndications: DM type 2, goal A1C below 8.0 TEST 1-2 TIMES DAILY DIRECTED 100 Each 3 5 Active Misc. Devices (BATH/SHOWER SEAT) MISCIndications: Hemiplegia and hemiparesis 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 (HCC) Use when in shower for stability 1 Each 0 9 Active Cyanocobalamin (B-12-SL) 1000 MCG SL TabletIndication s:Encounter for long-term (current) use of medications,Emily min deficiency Place 1,000 mcg under the tongue daily. 90 Tab 1 0 Active OneTouch Verio In Vitro Strip (Glucose Blood)Indication s:Type 2 diabetes mellitus with hemoglobin A1c goal of less than 8.0% (HCC) USE TO TEST BLOOD SUGARS UP TO 4 TIMES A DAY DX E11.9 400 Strip 3 0 Active metFORMIN HCl ER 500 MG Oral Tablet Extended Release 24 Hour (Glucophage XR) TAKE 2 TABLETS BY MOUTH TWICE A DAY WITH MEALS 360 Tablet 3 2 Active Loperamide HCl 2 MG Oral Capsule (Imodium) Take 1 Capsule by mouth 4 times a day as needed for Diarrhea. 0 Active Nystatin 660975 UNIT/GM External CreamIndications :Candidal skin infection Apply topically to affected area 2 times a day . To affacted area for two weeks. 180 g 1 2 Active OneTouch Verio w/Device KitIndications:T ype 2 diabetes mellitus with hemoglobin A1c goal of less than 8.0% (HCC) Use up to 4 times a day E11.9 1 Kit 0 2 Active OneTouch UltraSoft LancetsIndicatio ns:Type 2 diabetes mellitus with hemoglobin A1c goal of less than 8.0% (HCC) Use as directed 4 times a day as needed for Hyperglycemia (high sugar) or Hypoglycemia (low sugar). Use up to four times a day as directed 100 Each 5 2 Active OneTouch UltraSoft LancetsIndicatio ns:Type 2 diabetes mellitus with hemoglobin A1c goal of less than 8.0% (HCC) Use up to four times a day as directed DX E11.9 400 Each 3 2 Active Nystatin 168402 UNIT/GM External Powder (Nystop)Indicati ons:Candidal skin infection Apply topically to affected area 3 times a day. 240 g 5 2 Active hydrALAZINE HCl 25 MG Oral Tablet (Apresoline) TAKE 1 TABLET BY MOUTH THREE TIMES A DAY 270 Tablet 2 2 Active Potassium Chloride Lucy ER 10 MEQ Oral Tablet Extended Release (Klor-Con M10) TAKE 1 TABLET BY MOUTH 2 TIMES A DAY. WITH FOOD. Strength: 10 mEq 180 Tablet 1 3 Active glipiZIDE 5 MG Oral Tablet (Glucotrol)Indic ations:Type 2 diabetes mellitus with hemoglobin A1c goal of less than 8.0% (HCC) TAKE 2 TABLETS BY MOUTH EVERY DAY WITH BREAKFAST 180 Tablet 3 3 Active linaGLIPtin 5 MG Oral Tablet (Tradjenta) Take 1 Tablet by mouth in the morning. 90 Tablet 2 3 Active Atorvastatin Calcium 20 MG Oral Tablet (Lipitor)Indicat ions:Type 2 diabetes mellitus with hemoglobin A1c goal of less than 8.0% (HCC) Take 1 Tablet by mouth in the morning. 90 Tablet 3 3 Active OneTouch Verio In Vitro Strip (Glucose Blood)Indication s:Type 2 diabetes mellitus with hemoglobin A1c goal of less than 8.0% (HCC) Use up to 4 times a day E11.9 100 Strip 11 3 Active Levothyroxine Sodium 175 MCG Oral Tablet (Levoxyl)Indicat ions:Hypothyroid ism due to acquired atrophy of thyroid TAKE 1.25 TABLETS BY MOUTH IN THE MORNING. ON AN EMPTY STOMACH.. 113 Tablet 3 3 Active Famotidine 40 MG Oral Tablet (Pepcid) TAKE 1 TABLET BY MOUTH EVERY DAY IN THE MORNING 90 Tablet 1 3 Active Lisinopril 2.5 MG Oral Tablet (Prinivil)Indica tions:Type 2 diabetes mellitus with hemoglobin A1c goal of less than 7.0% (HCC) TAKE 1 TABLET BY MOUTH EVERY DAY IN THE MORNING 90 Tablet 1 3 Active Metoprolol Tartrate 50 MG Oral Tablet (Lopressor)Indic ations:HTN, goal below 150/90 TAKE 1 TABLET BY MOUTH IN THE MORNING AND BEFORE BEDTIME 180 Tablet 1 3 Active Jardiance 25 MG Oral Tablet (Empagliflozin)I ndications:Type 2 diabetes mellitus with hemoglobin A1c goal of less than 8.0% (HCC) TAKE 1 TABLET BY MOUTH EVERY DAY IN THE MORNING 90 Tablet 1 3 Active Famotidine 40 MG Oral Tablet (Pepcid) Take 1 Tablet by mouth in the morning. 90 Tablet 1 3 06/15/20 23 Discontinued Lisinopril 2.5 MG Oral Tablet (Prinivil)Indica tions:Type 2 diabetes mellitus with hemoglobin A1c goal of less than 7.0% (HCC) Take 1 Tablet by mouth in the morning. 90 Tablet 1 3 06/15/20 23 Discontinued Metoprolol Tartrate 50 MG Oral Tablet (Lopressor)Indic ations:HTN, goal below 150/90 Take 1 Tablet by mouth in the morning and 1 Tablet before bedtime. 180 Tablet 1 3 06/15/20 23 Discontinued Empagliflozin 25 MG Oral Tablet (Jardiance)Indic ations:Type 2 diabetes mellitus with hemoglobin A1c goal of less than 8.0% (HCC) Take 1 Tablet by mouth in the morning. 90 Tablet 1 3 06/15/20 23 Discontinued documented as of this encounter (statuses as of 06/15/2023) Active Problems Problem Noted Date Hyperlipidemia 08/13/2021 Gastro-esophageal reflux disease without esophagitis 08/13/2021 Hemiplegia and hemiparesis 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 05/21/2018 Last Assessment & Plan: L sided weakness. Non-ambulatory. Continues asa and atorvastatin BP at goal on lisinopril, metoprolol DM uncontrolled. LDL one year ago 34. 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 [place] d/t noncompliance with taking levoxyl. Son reports he is giving it to her in am 30 min prior to other meds. 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 not pharmacy picking technician new dose levoxyl 200mcg y Unspecified abnormalities of gait and mo bility 03/18/2017 Chronic diarrhea 02/04/2017 Primary osteoarthritis involving multipl e joints 04/02/2016 Type 2 diabetes mellitus with hemoglobin A1c [...] D deficiency 04/08/2012 Depression, major, in remission 03/23/20 12 History of nonadherence to medical treat ment 06/30/2011 HTN, goal below 150/90 documented as of this encounter (statuses as of 06/15/2023) Resolved Problems Problem Noted Date Resolved Date Pressure ulcer of left leg, stage III 04/22/2018 05/21/2018 Closed fracture of lower end of right femur with routine healing 04/22/2018 02/23/2019 Encounter for long-term (current) use of medicat ions 08/21/2017 05/21/2018 Hypothyroidism 01/16/2017 08/21/2017 Debility 06/13/2015 05/21/2018 Sleep disturbance 04/03/2015 04/02/2016 Left knee DJD 02/12/2015 04/02/2016 Abnormal thyroid function test 01/24/2015 0 04/02/2016 Hematoma of left hip 11/28/2014 04/02/2016 HTN, goal below 140/90 11/16/2014 6 Paronychia of second finger, right 10/13/2014 04/02/2016 Wheezing 04/21/2014 04/02/2016 Need for shingles vaccine 10/10/20132015 Type 1 diabetes mellitus wit h hemoglobin A1c goal of less than 8.0% 10/07/2013 10/07/2013 Overview: ICD-10 update of inactive term Sleep disturbance 06/21/2013 05/21/2018 Sinobronchitis 06/02/2013 04/02/2016 Cough 06/02/2013 05/05/2014 Nausea with vomiting 06/02/2013 05/05/2014 Routine medical exam 04/01/2013 04/02/2016 HTN, goal below 140/90 04/01/2013 4 Need for shingles vaccine 11/02/20122013 Obesity, Class I, BMI 30.0-34.9 (see actual BMI) 11/02/2012 08/21/2017 Overview: BMI= 33.65 11/02/12 Urinary incontinence 07/27/2012 04/02/2016 Overview: ICD-10 update of inactive term Unspecified prophylactic or treatment measure 04/02/2016 Acute pharyngitis 06/10/2012 05/05/2014 Acute URI 06/10/2012 05/05/2014 Acute URI 05/24/2012 05/05/2014 Diaper or napkin rash 04/07/2012 04/02/2016 Severe obesity with body mas s index (BMI) of 35.0 to 39.9 with serious comorbidity 03/23/2012 08/21/2017 Overview: bmi= 35.67 03/23/12 ICD-10 update of inactive diagnosis Hemiplegia, post-stroke 03/23/2012 05/21/20 18 Other screening mammogram 03/23/20122015 Menopause 03/23/2012 05/21/2018 HTN, goal below 140/90 06/30/2011 2 Adjustment disorder with depressed mood 06/30/20 11 03/23/2012 Hypothyroidism 06/30/2011 03/23/2012 ARF w/ tubular necrosis 02/0806/30/201107/2014 ACUTE RENAL FAILURE REQUIRING DIALYSIS 02/0806/30/2011 Type 2 diabetes mellitus wit h hemoglobin A1c goal of 7.0%-8.0% 06/30/2011 03/23/2012 Overview: ICD-10 update of inactive term Benign neoplasm of pituitary gland 06/30/2011 08/21/2017 Anemia of other chronic disease 06/30/2011 04/02/2016 ACUTE CHOLECYSTITIS S/P CHOLECYSTECTOMY 02/0808/21/2017 CVA WITH LEFT HEMIPARESIS 06/30/20112012 Type 2 diabetes mellitus wit h hemoglobin A1c goal of less than 7.0% 04/08/2012 Overview: ICD-10 update of inactive term HTN, goal below 130/80 3 Hemiparesis, left 05/21/2018 Hypothyroid 05/21/2018 Type 2 diabetes mellitus wit h hemoglobin A1c goal of 7.0%-8.0% 11/02/2012 Overview: ICD-10 update of inactive term Type 2 diabetes mellitus wit h hemoglobin A1c goal of less than 7.0% 10/07/2013 Overview: ICD-10 update of inactive term HTN, goal below 140/80 5 documented as of this encounter (statuses as of 06/15/2023) Immunizations Name Administration Dates Next Due Pneumococcal Conjugate Vacc, 13 Valent (Prevnar) 04/02/2016 Pneumococcal Polysaccharide PPV23 (Pneumovax) 06/30/2011 SEASONAL INFLUENZA, PF, 6 M & Above, IM , (FLULAVAL or FLUZONE) 08/08/2022,06/05/2020,06/02/2019,05/21,08/21/2017 Seasonal Influenza, Quadriva lent Hd (Fluzone Hd) 08/13/2021 Seasonal Influenza, Quadriva lent, No Preserve, IM 10/08/2016 Seasonal Influenza, Split, I IV3, With Preserve, Inj 05/05/2014,06/21/2013,05/14/2012,06/14,05/21/2010 TDAP (age 10 and older)(Boostrix) 11/02/2012 documented as of this encounter Social History Tobacco Use Types Packs/Day Years Used Date Smoking Tobacco: Never Smokeless Tobacco: Never Alcohol Use Standard Drinks/Week Comments No 0 (1 standard drink = 0.6 oz pur e alcohol) none Sex Assigned at Date Recorded Female 09/13/2019 1:[address] Job Start Date Occupation Industry Not on file Not on file Not on file documented as of this encounter Miscellaneous Notes * Telephone Encounter - Gloria Escobar RPh - 06/15/2023 8:58 AM EDTSigned Prescriptions: Disp Refills Famotidine 40 MG Oral Tablet (Pepcid) 90 Tab*1 Sig: TAKE 1 TABLET BY MOUTH EVERY DAY IN THE MORNINGAuthorizing Provider: ROXANNE AMAYA User: GLORIA ESCOBAR Lisinopril 2.5 MG Oral Tablet (Prinivil) 90 Tab*1 Sig: TAKE 1 TABLET BY MOUTH EVERY DAY IN THE MORNINGAuthorizing Provider: ROXANNE AMAYA User: GLORIA ESCOBAR Metoprolol Tartrate 50 MG Oral Tablet (Lop*180 Ta*1 Sig: TAKE 1 TABLET BY MOUTH IN THE MORNING AND BEFORE BEDTIMEAuthorizing Provider: ROXANNE AMAYA User: GLORIA ESCOBAR Jardiance 25 MG Oral Tablet (Empagliflozin)90 Tab*1 Sig: TAKE 1 TABLET BY MOUTH EVERY DAY IN THE MORNINGAuthorizing Provider: ROXANNE AMAYA User: GLORIA ESCOBAR documented in this encounter Plan of Treatment Upcoming Encounters Date Type Specialty Care Team Description 08/03/2023 Office Visit Family Medicine Roxanne Amaya MD [address] [place] [address] Health Maintenance Due Date Last Done Comments COVID-19 Vaccine (#1) 1945 Zoster Vaccines (1 of 2) 1996 DIABETES-EYE EXAM 12/23/2013 12/23/2012 Albumin/Creatinine Ratio 04/08/2014 04/08/2013, 03/01 DXA Scan 03/31/2019 03/31/2012, 03/31/2012 Depression Screening 08/13/2022 08/13/2021, 02/12/2015 (Discussed) DTaP,Tdap,and Td Vaccines (2 - Td or Tdap) 11/02/2022 11/02/2012 Influenza Vaccine (FLU shot) (#1) 2023 08/08/2022, 08/13/2021, 06/05/2020, Additional history exists Diabetic Foot Exam 07/28/2023 07/28/2022, 1 10/14/2020, 09/13/2019, Additional history exists HbA1c 10/04/2023 04/03/2023, 11/29, 07/28/2022, Additional history exists GFR 12/10/2023 12/09/2022, 07/02, 01/20/2022, Additional history exists TSH 04/03/2024 04/03/2023, 11/29, 07/28/2022, Additional history exists Pneumococcal Vaccine: 65+ Years Completed 04/02/2016, 06/30/2011 GARDASIL-HPV IMMUNIZATION SERIES Aged Out No longer eligible based on patient's age to complete this topic Hepatitis B Aged Out No longer eligi ble based on patient's age to complete this topic MENINGOCOCCAL (MENACTRA/MENVEO) Aged Out No longer eligible based on patient's age to complete this topic documented as of this encounter Medical Devices Not on filedocumented as of this encounter Visit Diagnoses Diagnosis Type 2 diabetes mellitus with hemoglobin A1c goal of less than 7.0% (HCC) HTN, goal below 150/90 Type 2 diabetes mellitus with hemoglobin A1c goal of less than 8.0% (HCC) documented in this encounter Care Teams Police Service Technician Relationship Specialty Start Date End Date Roxanne Amaya MD [address] [place] [address] PCP - General Family Medicine 11/28/22 documented as of this encounter
--- OUTSIDE RECORDS SUMMARY | 2023-10-18 12:53 | External Medical Summary | Summary of Care ---
Author Name Unknown Organization [facility] Address [address] [place] [address] Phone [phone] Care Team Providers Care Commercial Finance Analyst Name Role Phone Leslie Forbes MD Primary Care Provid er Reason for Visit * Reason Comments Outpatient Testing Encounter Details Date Type Department Care Team (Late st Contact Info) Description 08/03/2023 2:30 PM EST Laboratory [facility], [place] [address] [place] [address] [place] [address] [place] [address] Type 2 diabetes mellitus with hemoglobin A1c goal of less than 8.0% ([facility]); Hypothyroidism due to acquired atrophy of thyroid; Hyperlipidemia, unspecified hyperlipidemia type; HTN, goal below 150/90; Vitamin D deficiency; Gastro-esophageal reflux disease without esophagitis; Hemiplegia and hemiparesis 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 ([facility]); Depression, major, in remission ([facility]); History of nonadherence to medical [...] as needed for Diarrhea. 0 Active Nystatin 754607 UNIT/GM External CreamIndications:C andidal skin infection Apply [...] E11.9 400 Each 3 06/22/2022 Active Nystatin 534121 UNIT/GM External Powder (Nystop)Indication s:Candidal skin infection [...] 05/21/2018 Last Assessment & Plan: TSH 07/28/22--20.30. [place] d/t noncompliance with taking levoxyl. Son reports he is giving it to her in am 30 min prior to other meds. 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 new dose levoxyl 200mcg y Unspecified [...] Description 08/03/2023 2:40 PM EST Laboratory [facility], [place] [address] [place] [id number] [facility] [address] [place] [address], [place] [id number] Arrived 08/21/2023 1:30 PM EST Office Visit Pharmacy, [place] [address] [place] [address] [place] [facility] [address], [place] [id number] 12/04/2023 2:40 PM EDT Office Visit Family Practice, [place] [address] [place] [address] Leslie Forbes MD [address] [place] [address] Pending Results Name Type Priority [...] mobility documented in this encounter Care Teams Commercial Finance Analyst Relationship Specialty Start Date End Date Leslie Forbes MD [address] [place] [address] PCP - General Family Medicine 07/28/22 documented as of this encounter
--- OUTSIDE RECORDS SUMMARY | 2023-10-18 12:53 | External Medical Summary | Summary of Care ---
Author Name Unknown Organization [facility] Address [address] [place] [address] Phone [phone] Care Team Providers Care Deposition Operator Name Role Phone Leslie Forbes MD Primary Care Provid er Encounter Details Date Type Department Care Team Description 03/16/2023 Telephone [facility] [address] [place] [address] Leslie Forbes MD [address] [place] [address] Allergies No known active allergiesdocumented as of [...] as needed for Diarrhea. 0 Active Nystatin 219578 UNIT/GM External CreamIndications :Candidal skin infection Apply [...] E11.9 400 Each 3 2 Active Nystatin 981901 UNIT/GM External Powder (Nystop)Indicati ons:Candidal skin infection [...] day E11.9 100 Strip 11 3 Active Famotidine 40 MG Oral Tablet (Pepcid) Take 1 Tablet by mouth in the morning. 90 Tablet 1 3 06/15/20 23 Discontinued Levothyroxine Sodium 175 MCG Oral Tablet (Levoxyl)Indicat ions:Hypothyroid ism due to acquired atrophy of thyroid Take 1.25 Tablets by mouth in the morning. on an empty stomach.. 90 Tablet 1 3 04/23/20 23 Discontinued Lisinopril 2.5 MG Oral Tablet [...] 05/21/2018 Last Assessment & Plan: TSH 07/28/22--20.30. [place] d/t noncompliance with taking levoxyl. Son reports he is giving it to her in am 30 min prior to other meds. They did not scrap picker new dose levoxyl 200mcg y Unspecified [...] Team Description 08/03/2023 Office Visit Family Medicine Leslie Forbes MD [address] [place] [address] Health Maintenance Due Date Last [...] filedocumented as of this encounter Care Teams Deposition Operator Relationship Specialty Start Date End Date Leslie Forbes MD [address] [place] [address] PCP - General Family Medicine 07/28/22 documented as of this encounter
--- OUTSIDE RECORDS SUMMARY | 2023-10-18 12:53 | External Medical Summary | Summary of Care ---
Author Name Unknown Organization [facility] Address [address] [place] [address] Phone [phone] Care Team Providers Care Clinical Operations Manager Name Role Phone Roxanne Amyaa MD Primary Care Provid er Reason for Visit * Reason Comments eRx-Medication Refill Encounter Details Date Type Department Care Team Description 04/22/2023 Refill [facility] [address] [place] [address] Roxanne Amaya MD [address] [place] [address] Hypothyroidism due to acquired atrophy of thyroid Allergies No known active allergiesdocumented as of this encounter (statuses as of 04/23/2023) Medications Medication Sig Dispensed Refills Start Date [...] as needed for Diarrhea. 0 Active Nystatin 004817 UNIT/GM External CreamIndications :Candidal skin infection Apply [...] E11.9 400 Each 3 2 Active Nystatin 804446 UNIT/GM External Powder (Nystop)Indicati ons:Candidal skin infection [...] WITH BREAKFAST 180 Tablet 3 3 Active Famotidine 40 MG Oral Tablet (Pepcid) Take 1 Tablet by mouth in the morning. 90 Tablet 1 3 Active linaGLIPtin 5 MG Oral Tablet (Tradjenta) Take 1 Tablet by mouth in the morning. 90 Tablet 2 3 Active Lisinopril 2.5 MG Oral Tablet (Prinivil)Indica tions:Type 2 diabetes mellitus with hemoglobin A1c goal of less than 7.0% (HCC) Take 1 Tablet by mouth in the morning. 90 Tablet 1 3 Active Metoprolol Tartrate 50 MG Oral Tablet (Lopressor)Indic ations:HTN, goal below 150/90 Take 1 Tablet by mouth in the morning and 1 Tablet before bedtime. 180 Tablet 1 3 Active Empagliflozin 25 MG Oral Tablet (Jardiance)Indic ations:Type 2 diabetes mellitus with hemoglobin A1c goal of less than 8.0% (HCC) Take 1 Tablet by mouth in the morning. 90 Tablet 1 3 Active Atorvastatin Calcium 20 MG Oral Tablet (Lipitor)Indicat ions:Type 2 diabetes mellitus with hemoglobin A1c goal of less than 8.0% (HCC) Take 1 Tablet by mouth in the morning. 90 Tablet 3 3 Active OneTouch Verio In Vitro Strip (Glucose Blood)Indication s:Type 2 diabetes mellitus with hemoglobin A1c goal of less than 8.0% ([facility]) Use up to 4 times a day E11.9 100 Strip 11 3 Active Levothyroxine Sodium 175 MCG Oral Tablet (Levoxyl)Indicat ions:Hypothyroid ism due to acquired atrophy of thyroid TAKE 1.25 TABLETS BY MOUTH IN THE MORNING. ON AN EMPTY STOMACH.. 113 Tablet 3 3 Active Levothyroxine Sodium 175 MCG Oral Tablet (Levoxyl)Indicat ions:Hypothyroid ism due to acquired atrophy of thyroid Take 1.25 Tablets by mouth in the morning. on an empty stomach.. 90 Tablet 1 3 04/23/20 23 Discontinued documented as of this encounter (statuses as of 04/23/2023) Active Problems Problem Noted Date Hyperlipidemia 08/13/2021 [...] 05/21/2018 Last Assessment & Plan: TSH 07/28/22--20.30. [place] d/t noncompliance with taking levoxyl. Son reports he is giving it to her in am 30 min prior to other meds. They did not berry picker new dose levoxyl 200mcg y Unspecified [...] as of this encounter (statuses as of 04/23/2023) Resolved Problems Problem Noted Date Resolved Date [...] as of this encounter (statuses as of 04/23/2023) Immunizations Name Administration Dates Next Due Pneumococcal Conjugate Vacc, 13 Valent (Prevnar) 04/02/2016 Pneumococcal Polysaccharide PPV23 (Pneumovax) 06/30/2011 Seasonal Influenza, PF, 6 mo ns & Above, IM , (Flulaval) 08/08/2022,06/05/2020,06/02/2019,05/21,08/21/2017 Seasonal Influenza, Quadriva lent Hd (Fluzone [...] encounter Miscellaneous Notes * Telephone Encounter - Anjelica June [facility] - 04/23/2023 8:27 AM EDTSigned Prescriptions: Disp Refills Levothyroxine Sodium 175 MCG Oral Tablet (*113 Ta*3 Sig: TAKE 1.25 TABLETS BY MOUTH IN THE MORNING. ON AN EMPTY STOMACH..Authorizing Provider: ROXANNE AMAYA User: ANJELICA JUNE documented in this encounter Plan of Treatment Upcoming Encounters Date Type Specialty Care Team Description 08/03/2023 Office Visit Family Medicine Roxanne Amaya MD [address] [place] [address] Health Maintenance Due Date Last Done Comments COVID-19 Vaccine (#1) 1945 Zoster Vaccines (1 of 2) 1996 DIABETES-EYE EXAM 12/23/2013 12/23/2012 Albumin/Creatinine Ratio 04/08/2014 04/08/2013, 03/01 DXA Scan 03/31/2019 03/31/2012, 03/31/2012 Depression Screening, Annual for Pts 12 and Over 08/13/2022 08/13/2021, 02/12/2015 (Discussed) DTaP,Tdap,and Td Vaccines (2 - Td or Tdap) 11/02/2022 11/02/2012 Influenza Vaccine (FLU shot) (#1) 2023 08/08/2022, 08/13/2021, 06/05/2020, Additional history exists DIABETES-FOOT EXAM 07/28/2023 07/28/2022, 1 10/14/2020, 09/13/2019, Additional history [...] as of this encounter Visit Diagnoses Diagnosis Hypothyroidism due to acquired atrophy of thyroid documented in this encounter Care Teams Clinical Operations Manager Relationship Specialty Start Date End Date Roxanne Amaya MD [address] [place] [id number] PCP - General Family Medicine 07/28/22 documented as of this encounter
--- OUTSIDE RECORDS SUMMARY | 2023-10-18 12:53 | External Medical Summary ---
Author Name Unknown Address Unknown Organization K01:LABORATORY [facility] [place] - [address] [place] [id number] Laboratory Report Ordering Provider Test Date Status ROXANNEDICK SERRATOO 08/03/2023 14:06:44 Final Observation Date Value Abnormality Reference (Units ) Status T4, Free 08/03/2023 14:06:44 0.8 Below low normal 0.9 -1.7 (ng/dL) Final Performing Location LABORATORY [facility] - [address] [place] [address]
--- OUTSIDE RECORDS SUMMARY | 2023-10-18 12:53 | External Medical Summary | Summary of Care ---
Author Name Unknown Organization [facility] Address [address] [place] [address] Phone [phone] Care Team Providers Care Correspondence Clerk Name Role Phone Leslie Forbes MD Primary Care Provid er Reason for Visit * Reason Onset Date Comments Advice 05/19/2023 Talk w/dr sherwood: in vestigating Encounter Details Date Type Department Care Team Description 05/19/2023 Telephone [facility] [address] [place] [address] Leslie Forbes MD [address] [place] [address] Advice (Talk w/dr sherwood: investigating) Allergies No known active allergiesdocumented as of this encounter (statuses as of 06/05/2023) Medications Medication Sig Dispensed Refills Start Date [...] as needed for Diarrhea. 0 Active Nystatin 078659 UNIT/GM External CreamIndications:C andidal skin infection Apply [...] E11.9 400 Each 3 06/22/2022 Active Nystatin 544643 UNIT/GM External Powder (Nystop)Indication s:Candidal skin infection Apply topically to affected area 3 times a day. 240 g 5 08/12/2022 Active hydrALAZINE HCl 25 MG Oral Tablet (Apresoline) TAKE 1 TABLET BY MOUTH THREE TIMES A DAY 270 Tablet 2 08/19/2022 Active Potassium Chloride Lucy ER 10 MEQ Oral Tablet Extended Release (Klor-Con M10) TAKE 1 TABLET BY MOUTH 2 TIMES A DAY. WITH FOOD. Strength: 10 mEq 180 Tablet 1 11/09/2022 Active glipiZIDE 5 MG Oral Tablet (Glucotrol)Indicat ions:Type 2 diabetes mellitus with hemoglobin A1c goal of less than 8.0% (HCC) TAKE 2 TABLETS BY MOUTH EVERY DAY WITH BREAKFAST 180 Tablet 3 11/24/2022 Active Famotidine 40 MG Oral Tablet (Pepcid) Take 1 Tablet by mouth in the morning. 90 Tablet 1 12/09/2022 Active linaGLIPtin 5 MG Oral Tablet (Tradjenta) Take 1 Tablet by mouth in the morning. 90 Tablet 2 01/12/2023 Active Lisinopril 2.5 MG Oral Tablet (Prinivil)Indicati ons:Type 2 diabetes mellitus with hemoglobin A1c goal of less than 7.0% (HCC) Take 1 Tablet by mouth in the morning. 90 Tablet 1 02/11/2023 Active Metoprolol Tartrate 50 MG Oral Tablet (Lopressor)Indicat ions:HTN, goal below 150/90 Take 1 Tablet by mouth in the morning and 1 Tablet before bedtime. 180 Tablet 1 02/11/2023 Active Empagliflozin 25 MG Oral Tablet (Jardiance)Indicat ions:Type 2 diabetes mellitus with hemoglobin A1c goal of less than 8.0% (HCC) Take 1 Tablet by mouth in the morning. 90 Tablet 1 02/16/2023 Active Atorvastatin Calcium 20 MG Oral Tablet (Lipitor)Indicatio ns:Type 2 diabetes mellitus with hemoglobin A1c goal of less than 8.0% (HCC) Take 1 Tablet by mouth in the morning. 90 Tablet 3 02/16/2023 Active OneTouch Verio In Vitro Strip (Glucose Blood)Indications: Type 2 diabetes mellitus with hemoglobin A1c goal of less than 8.0% ([facility]) Use up to 4 times a day E11.9 100 Strip 11 03/10/2023 Active Levothyroxine Sodium 175 MCG Oral Tablet (Levoxyl)Indicatio ns:Hypothyroidism due to acquired atrophy of thyroid TAKE 1.25 TABLETS BY MOUTH IN THE MORNING. ON AN EMPTY STOMACH.. 113 Tablet 3 04/23/2023 Active documented as of this encounter (statuses as of 06/05/2023) Active Problems Problem Noted Date Hyperlipidemia 08/13/2021 [...] 05/21/2018 Last Assessment & Plan: TSH 07/28/22--20.30. [place] d/t noncompliance with taking levoxyl. Son reports he is giving it to her in am 30 min prior to other meds. 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 Please call back thank you documented in this encounter Plan of Treatment Upcoming Encounters Date Type Specialty Care Team Description 08/03/2023 Office Visit Family Medicine Leslie Forbes MD [address] [place] [address] Health [...] filedocumented as of this encounter Care Teams Correspondence Clerk Relationship Specialty Start Date End Date Leslie Forbes MD [address] [place] [id number] PCP - General Family Medicine 07/28/22 documented as of this encounter
[2023-10-18 13:22] LABS: iSTAT Blood Urea Nitrogen 131 mg/dl (7-18); iSTAT Carbon Dioxide 12 mmol/L (24-31); iSTAT Chloride 95 mmol/L (101-112); iSTAT Creatinine 2.6 mg/dl (0.6-1.3); iSTAT Glucose > 700 mg/dl (70-99); iSTAT Hematocrit 41 % (37-47); iSTAT Hemoglobin 13.9 g/dl (12.0-16.0); iSTAT Ionized Calcium 1.25 mmol/l (1.12-1.32); iSTAT Potassium 5.6 mmol/L (3.3-5.0); iSTAT Sodium 123 mmol/L (135-144)
[2023-10-18] MEDS ORDERED: ETOMIDATE 2 MG/ML 20 ML VIAL IV ONE (13:24)
[2023-10-18] MEDS ORDERED: LIDOCAINE 2% 20 MG/ML 5 ML SYR IV ONE (13:24)
--- NOTE | 2023-10-18 13:30 | Emergency Department Note ---
Impression & Plan DKA (diabetic ketoacidosis), Sepsis, Skin breakdown, Poor hygiene, Medical non- compliance ED Provider Note CHIEF COMPLAINT: AMS HISTORY OF PRESENT ILLNESS: This 78-year-old female with past medical history of stroke, hypothyroidism, diabetes mellitus, hypothyroid presents to the emergency department with complaints of altered mental status per her family. Per EMS the patient lives in the basement of the home, was found lying on the bed covered in blood and urine. Per EMS there are significant wounds of the groin that are bleeding. They noted a blood sugar over 600 and route. Patient is hypotensive and was started on IV fluids through the IO. Per EMS there was family (? sons) living upstairs. REVIEW OF SYSTEMS: Unable to obtain a full review of systems secondary to the patient's mental status. ALLERGIES: see below MEDICATIONS: see below PMH: History of previous stroke with hemiparesis, hypertension, diabetes poorly controlled, hyperlipidemia. SOCIAL HISTORY: see below DDx: Intracranial hemorrhage, intracranial mass, CVA, metabolic abnormality, dehydration, infectious etiology, medication omission, among others. PHYSICAL EXAM: Vital signs reviewed. Noted to be hypotensive with a normal heart rate, hypothermic General: Chronically ill-appearing 78-year-old female, periodic eye opening but unresponsive otherwise. Unkempt with incontinence and visible dirt noted. HEENT: No scleral icterus, PERRLA, neck supple. Atraumatic. Cardiovascular: Regular rate and rhythm, no extra sounds. Pulmonary: Clear to auscultation bilaterally, normal work of breathing. Abdomen: Soft, nontender, nondistended, positive bowel sounds. Musculoskeletal: Atraumatic, no peripheral edema. Neurologic: Patient unresponsive with occasional eye opening. Does not respond to painful stimuli directly. No verbal response. Skin: Warm, dry, significant yeast dermatitis with ulceration and bleeding to the entire groin and perirectal region. L upper back with pressure wound from bra. EMERGENCY DEPARTMENT COURSE/MDM: This patient was evaluated and appeared to be somnolent and essentially unresponsive. She did have occasional eye opening. Multiple attempts for IV access were made and nursing staff was able to establish an 18-gauge in the foot, and IV in the right hand and an 8-1/2 inch midline in the left brachial region. I-STAT had been performed and reveals a blood glucose greater than 700. She is remarkably dry with a BUN of 131. Anion gap is 22 with a sodium of 123. Venous CO2 is 12. There was significant difficulty in obtaining laboratory work as the first set of labs was hemolyzed. After several attempts at venous lab draw, I did stick the right brachial artery for 30 cc of blood. Pressure dressing was applied. Blood cultures were sent, lactate is 4.5. The patient was given cefepime 2 g IV and a total of 3 L normal saline solution bolus for persistent hypotension. CT imaging of the head was performed and reveals no evidence of acute intracranial hemorrhage, there is a question of an age-indeterminate infarct in the cerebellum. Laboratory work was finally obtained and reveals significant derangements consistent with sepsis and DKA. WBC is markedly elevated, patient is hyponatremic with a BUN of 130 and a creatinine of 2.43. Glucose is 897. Watkins catheter with temperature probe was placed. There is significant macerated tissue to the groin precluding femoral line. The hospitalist service has been consulted and was in contact with the ICU, defer central line to their service. Vasopressors were ordered by the hospitalist after the third liter of fluid was administered. The office of aging was contacted by case management after consultation. They apparently have had several investigations into the patient's living conditions. Patient's family is at the bedside and understand the patient will be admitted to the hospital. MONITORING: An order for cardiac monitoring was placed and the patient is noted to be in a normal sinus rhythm 86 beats per minute. RADIOLOGY: CT scan of the head to my interpretation reveals significant encephalomalacia, no evidence of acute intracranial hemorrhage or mass. Please see radiology's read below. Chest x-ray to my interpretation reveals pulmonary vascular congestion, no focal lung consolidation to suggest pneumonia. EKG: To my interpretation reveals normal sinus rhythm 86 bpm. Possible LVH. Previous inferior infarct. No PVC, no PAC. Normal ST segments. When compared to previous dated February 03, 2018, T wave abnormality in the inferior leads has resolved. DISPOSITION: Home I have personally spent greater than 60 minutes of critical care time in the direct management of this patient. This includes bedside care, interpretation of diagnostic studies, and testing, discussion with consultants, patient, and family members, and other required patient management activities. This 60 minutes is in excess of all separately billable procedures. Past Med/Surg History Medical History Depression GERD (gastroesophageal reflux disease) Hemiparesis affecting left side as late effect of cerebrovascular accident (CVA) Dyslipidemia (high LDL; low HDL) Vitamin D deficiency Essential hypertension Diabetes mellitus Headache Contusion of finger of right hand Hypothyroidism Paralytic stroke (01/12/13) Surgical History History of laparoscopic cholecystectomy (06/07/13) History of total hysterectomy with bilateral salpingo-oophorectomy (BSO) Social History (Updated 10/18/23 @ 13:43 by Neva Moreland MD) Smoking Status: Unknown if ever smoked Current Living Situation: Family Current Living Situation Comment: lives w family Allergies Allergies Allergy/AdvReac Type Severity Reaction Status Date / Time No Known Allergies Allergy Unknown NONE Unverified 02/03/18 15:50 Home Meds Home Medications Medication Instructions Recorded Confirmed ergocalciferol (vitamin D2) 1,000 2,000 unit PO DAILY ##0 01/12/13 10/18/23 unit capsule aspirin 81 mg tablet 81 mg PO DAILY ##0 06/07/13 10/18/23 atorvastatin 20 mg tablet 20 mg PO DAILY 10/18/23 10/18/23 empagliflozin 25 mg tablet 25 mg PO QAM 10/18/23 10/18/23 (Jardiance) famotidine 40 mg tablet 40 mg PO QAM 10/18/23 10/18/23 glipizide 5 mg tablet 10 mg PO DAILY 10/18/23 10/18/23 hydralazine 25 mg tablet 25 mg PO TID 10/18/23 10/18/23 levothyroxine 175 mcg tablet 218.75 mcg PO DAILY 10/18/23 10/18/23 linagliptin 5 mg tablet (Tradjenta) 5 mg PO QAM 10/18/23 10/18/23 lisinopril 2.5 mg tablet 2.5 mg PO QAM 10/18/23 10/18/23 metformin 500 mg tablet,extended 1,000 mg PO BID 10/18/23 10/18/23 release 24 hr metoprolol tartrate 50 mg tablet 50 mg PO BID 10/18/23 10/18/23 potassium chloride 10 mEq 10 meq PO BID 10/18/23 10/18/23 tablet,extended release(part/cryst) (Mandie Fuentes) Results & Data (ED) Vital Signs Vital Signs - 24 hr 10/18/23 13:00 10/18/23 13:12 10/18/23 13:15 Temperature 35.2 C L Temperature Source Rectal Pulse Rate 89 86 Pulse Rate [Apical] Pulse Rate from SpO2 Sensor Respiratory Rate 15 Respiratory Effort / Characteristics Blood Pressure 88/46 L 88/47 L Blood Pressure Mean 60 61 Pulse Oximetry 96 Oxygen Delivery Method Nasal Cannula Oxygen Flow Rate 2 Sepsis Recent Fever Within 48 Hours No Sepsis New/Unexplained Change in Mental Status Yes Sepsis Action Taken by Nursing Physician Notified 10/18/23 13:18 10/18/23 13:18 10/18/23 13:20 Temperature Temperature Source Pulse Rate 90 89 Pulse Rate [Apical] Pulse Rate from SpO2 Sensor 96 H 87 Respiratory Rate 24 21 Respiratory Effort / Characteristics Blood Pressure 75/43 L Blood Pressure Mean 55 Pulse Oximetry 95 97 Oxygen Delivery Method Oxygen Flow Rate Sepsis Recent Fever Within 48 Hours Sepsis New/Unexplained Change in Mental Status Sepsis Action Taken by Nursing 10/18/23 13:22 10/18/23 13:22 10/18/23 13:25 Temperature Temperature Source Pulse Rate 91 H 95 H Pulse Rate [Apical] Pulse Rate from SpO2 Sensor 93 H 107 H Respiratory Rate 26 H 22 Respiratory Effort / Characteristics Blood Pressure 78/22 L Blood Pressure Mean 29 Pulse Oximetry 98 96 Oxygen Delivery Method Oxygen Flow Rate Sepsis Recent Fever Within 48 Hours Sepsis New/Unexplained Change in Mental Status Sepsis Action Taken by Nursing 10/18/23 13:26 10/18/23 13:26 10/18/23 13:27 Temperature Temperature Source Pulse Rate 93 H 88 Pulse Rate [Apical] Pulse Rate from SpO2 Sensor 94 H 89 Respiratory Rate 16 22 Respiratory Effort / Characteristics Blood Pressure 71/25 L Blood Pressure Mean 29 Pulse Oximetry 97 98 Oxygen Delivery Method Oxygen Flow Rate Sepsis Recent Fever Within 48 Hours Sepsis New/Unexplained Change in Mental Status Sepsis Action Taken by Nursing 10/18/23 13:27 10/18/23 13:30 10/18/23 13:31 Temperature Temperature Source Pulse Rate 89 93 H Pulse Rate [Apical] Pulse Rate from SpO2 Sensor 94 H Respiratory Rate 18 25 H Respiratory Effort / Characteristics Blood Pressure 78/48 L Blood Pressure Mean 66 Pulse Oximetry 97 Oxygen Delivery Method Oxygen Flow Rate Sepsis Recent Fever Within 48 Hours Sepsis New/Unexplained Change in Mental Status Sepsis Action Taken by Nursing 10/18/23 13:31 10/18/23 13:33 10/18/23 13:33 Temperature 28.4 C L Temperature Source Pulse Rate 88 Pulse Rate [Apical] Pulse Rate from SpO2 Sensor 91 H Respiratory Rate 21 Respiratory Effort / Characteristics Blood Pressure 78/39 L 78/39 L Blood Pressure Mean 54 60 Pulse Oximetry 95 Oxygen Delivery Method Oxygen Flow Rate Sepsis Recent Fever Within 48 Hours Sepsis New/Unexplained Change in Mental Status Sepsis Action Taken by Nursing 10/18/23 13:35 10/18/23 13:36 10/18/23 13:36 Temperature 30.6 C L 31.5 C L Temperature Source Pulse Rate 87 88 Pulse Rate [Apical] Pulse Rate from SpO2 Sensor 94 H 92 H Respiratory Rate 15 18 Respiratory Effort / Characteristics Blood Pressure 85/33 L Blood Pressure Mean 66 Pulse Oximetry 86 L 93 Oxygen Delivery Method Oxygen Flow Rate Sepsis Recent Fever Within 48 Hours Sepsis New/Unexplained Change in Mental Status Sepsis Action Taken by Nursing 10/18/23 13:39 10/18/23 13:39 10/18/23 13:40 Temperature 32.8 C L 33.0 C L Temperature Source Pulse Rate 88 94 H Pulse Rate [Apical] Pulse Rate from SpO2 Sensor 93 H 86 Respiratory Rate 17 4 L Respiratory Effort / Characteristics Blood Pressure 51/37 L Blood Pressure Mean 42 Pulse Oximetry 95 90 Oxygen Delivery Method Oxygen Flow Rate Sepsis Recent Fever Within 48 Hours Sepsis New/Unexplained Change in Mental Status Sepsis Action Taken by Nursing 10/18/23 13:42 10/18/23 13:42 10/18/23 13:51 Temperature 33.4 C L 34 C L Temperature Source Core Pulse Rate 83 Pulse Rate [Apical] 89 Pulse Rate from SpO2 Sensor 87 Respiratory Rate 15 22 Respiratory Effort / Characteristics Labored Blood Pressure 79/47 L Blood Pressure Mean 55 Pulse Oximetry 98 Oxygen Delivery Method Oxygen Flow Rate Sepsis Recent Fever Within 48 Hours Sepsis New/Unexplained Change in Mental Status Sepsis Action Taken by Nursing 10/18/23 13:51 10/18/23 13:54 10/18/23 13:54 Temperature 34.0 C L 34.0 C L Temperature Source Pulse Rate 87 88 Pulse Rate [Apical] Pulse Rate from SpO2 Sensor Respiratory Rate 13 17 Respiratory Effort / Characteristics Blood Pressure 70/45 L Blood Pressure Mean 48 Pulse Oximetry Oxygen Delivery Method Oxygen Flow Rate Sepsis Recent Fever Within 48 Hours Sepsis New/Unexplained Change in Mental Status Sepsis Action Taken by Nursing 10/18/23 13:55 10/18/23 13:56 10/18/23 13:56 Temperature 34.0 C L 34.1 C L Temperature Source Pulse Rate 88 87 Pulse Rate [Apical] Pulse Rate from SpO2 Sensor 87 Respiratory Rate 18 19 Respiratory Effort / Characteristics Blood Pressure 72/41 L Blood Pressure Mean 51 Pulse Oximetry 97 Oxygen Delivery Method Oxygen Flow Rate Sepsis Recent Fever Within 48 Hours Sepsis New/Unexplained Change in Mental Status Sepsis Action Taken by Nursing 10/18/23 13:58 10/18/23 13:58 10/18/23 14:00 Temperature 32.2 C L 25.1 C L Temperature Source Pulse Rate 94 H 87 Pulse Rate [Apical] Pulse Rate from SpO2 Sensor 96 H 86 Respiratory Rate 25 H 16 Respiratory Effort / Characteristics Blood Pressure 78/40 L Blood Pressure Mean 50 Pulse Oximetry 100 91 Oxygen Delivery Method Oxygen Flow Rate Sepsis Recent Fever Within 48 Hours Sepsis New/Unexplained Change in Mental Status Sepsis Action Taken by Nursing 10/18/23 14:01 10/18/23 14:01 10/18/23 14:02 Temperature 22.6 C L 30.2 C L Temperature Source Pulse Rate 90 94 H Pulse Rate [Apical] Pulse Rate from SpO2 Sensor 90 91 H Respiratory Rate 26 H 17 Respiratory Effort / Characteristics Blood Pressure 73/31 L Blood Pressure Mean 54 Pulse Oximetry 95 83 L Oxygen Delivery Method Oxygen Flow Rate Sepsis Recent Fever Within 48 Hours Sepsis New/Unexplained Change in Mental Status Sepsis Action Taken by Nursing 10/18/23 14:02 10/18/23 14:05 10/18/23 14:06 Temperature 24.0 C L Temperature Source Pulse Rate 90 Pulse Rate [Apical] Pulse Rate from SpO2 Sensor 94 H Respiratory Rate 10 L Respiratory Effort / Characteristics Blood Pressure 92/53 L 87/48 L Blood Pressure Mean 64 55 Pulse Oximetry 80 L Oxygen Delivery Method Oxygen Flow Rate Sepsis Recent Fever Within 48 Hours Sepsis New/Unexplained Change in Mental Status Sepsis Action Taken by Nursing 10/18/23 14:06 10/18/23 14:09 10/18/23 14:09 Temperature 30.5 C L 31.4 C L Temperature Source Pulse Rate 93 H 87 Pulse Rate [Apical] Pulse Rate from SpO2 Sensor 94 H 95 H Respiratory Rate 28 H 15 Respiratory Effort / Characteristics Blood Pressure 75/49 L Blood Pressure Mean 57 Pulse Oximetry 86 L 73 L Oxygen Delivery Method Oxygen Flow Rate Sepsis Recent Fever Within 48 Hours Sepsis New/Unexplained Change in Mental Status Sepsis Action Taken by Nursing 10/18/23 14:10 10/18/23 14:11 10/18/23 14:11 Temperature 31.9 C L 32.3 C L Temperature Source Pulse Rate 84 Pulse Rate [Apical] Pulse Rate from SpO2 Sensor 94 H 92 H Respiratory Rate 13 Respiratory Effort / Characteristics Blood Pressure 68/43 L Blood Pressure Mean 54 Pulse Oximetry 76 L 86 L Oxygen Delivery Method Oxygen Flow Rate Sepsis Recent Fever Within 48 Hours Sepsis New/Unexplained Change in Mental Status Sepsis Action Taken by Nursing 10/18/23 14:13 10/18/23 14:13 10/18/23 14:15 Temperature 32.7 C L 33.0 C L Temperature Source Pulse Rate 88 87 Pulse Rate [Apical] Pulse Rate from SpO2 Sensor Respiratory Rate 16 16 Respiratory Effort / Characteristics Blood Pressure 78/52 L Blood Pressure Mean 58 Pulse Oximetry Oxygen Delivery Method Oxygen Flow Rate Sepsis Recent Fever Within 48 Hours Sepsis New/Unexplained Change in Mental Status Sepsis Action Taken by Nursing 10/18/23 14:16 10/18/23 14:16 10/18/23 14:20 Temperature 33.1 C L 33.4 C L Temperature Source Pulse Rate 86 86 Pulse Rate [Apical] Pulse Rate from SpO2 Sensor 87 87 Respiratory Rate 14 16 Respiratory Effort / Characteristics Blood Pressure 71/41 L Blood Pressure Mean 42 Pulse Oximetry 100 100 Oxygen Delivery Method Oxygen Flow Rate Sepsis Recent Fever Within 48 Hours Sepsis New/Unexplained Change in Mental Status Sepsis Action Taken by Nursing 10/18/23 14:21 10/18/23 14:21 10/18/23 14:25 Temperature 33.4 C L 33.6 C L Temperature Source Pulse Rate 85 88 Pulse Rate [Apical] Pulse Rate from SpO2 Sensor 85 89 Respiratory Rate 15 19 Respiratory Effort / Characteristics Blood Pressure 68/54 L Blood Pressure Mean 55 Pulse Oximetry 100 99 Oxygen Delivery Method Oxygen Flow Rate Sepsis Recent Fever Within 48 Hours Sepsis New/Unexplained Change in Mental Status Sepsis Action Taken by Nursing 10/18/23 14:26 10/18/23 14:26 10/18/23 14:30 Temperature 33.6 C L 33.7 C L Temperature Source Pulse Rate 89 88 Pulse Rate [Apical] Pulse Rate from SpO2 Sensor 90 88 Respiratory Rate 16 19 Respiratory Effort / Characteristics Blood Pressure 86/29 L Blood Pressure Mean 63 Pulse Oximetry 99 100 Oxygen Delivery Method Oxygen Flow Rate Sepsis Recent Fever Within 48 Hours Sepsis New/Unexplained Change in Mental Status Sepsis Action Taken by Nursing 10/18/23 14:35 10/18/23 14:40 10/18/23 14:42 Temperature 33.7 C L 33.8 C L 33.8 C L Temperature Source Pulse Rate 86 84 83 Pulse Rate [Apical] Pulse Rate from SpO2 Sensor 86 83 82 Respiratory Rate 15 16 14 Respiratory Effort / Characteristics Blood Pressure Blood Pressure Mean Pulse Oximetry 100 96 97 Oxygen Delivery Method Oxygen Flow Rate Sepsis Recent Fever Within 48 Hours Sepsis New/Unexplained Change in Mental Status Sepsis Action Taken by Nursing 10/18/23 14:42 Temperature Temperature Source Pulse Rate Pulse Rate [Apical] Pulse Rate from SpO2 Sensor Respiratory Rate Respiratory Effort / Characteristics Blood Pressure 57/24 L Blood Pressure Mean 40 Pulse Oximetry Oxygen Delivery Method Oxygen Flow Rate Sepsis Recent Fever Within 48 Hours Sepsis New/Unexplained Change in Mental Status Sepsis Action Taken by [facility] Medications Current Medication List: was personally reviewed by me Laboratory Data Attestation: I reviewed the patient's lab results. 10/18/23 14:42 10/18/23 14:42 Lab Results 10/18/23 10/18/23 10/18/23 Range/Units 13:09 13:31 14:42 WBC Cancelled 31.19 H* RBC Cancelled 3.80 L Hgb Cancelled 9.6 L POC Hgb 13.9 (12.0-16.0) g/dl Hct Cancelled 30.9 L POC Hct 41 (37-47) % MCV Cancelled 81.3 MCH Cancelled 25.3 MCHC Cancelled 31.1 L RDW Std Deviation Cancelled 54.4 H RDW Coeff of Jasson Cancelled 18.4 H Plt Count Cancelled 7 L* MPV Cancelled Immature Gran % (Auto) Cancelled Neut % (Auto) Cancelled Lymph % (Auto) Cancelled Dooly % (Auto) Cancelled Eos % (Auto) Cancelled Baso % (Auto) Cancelled Neut # (Auto) Cancelled Lymph # (Auto) Cancelled Dooly # (Auto) Cancelled Eos # (Auto) Cancelled Baso # (Auto) Cancelled Immature Gran # (Auto) Cancelled Absolute Nucleated RBC Cancelled Nucleated RBC % (auto) Cancelled Neutrophils % (Manual) Cancelled Band Neutrophils % Cancelled Lymphocytes % (Manual) Cancelled Prolymphocyte % Cancelled Reactive Lymphs % (Man) Cancelled Monocytes % (Manual) Cancelled Eosinophils % (Manual) Cancelled Basophils % (Manual) Cancelled Metamyelocytes % (Man) Cancelled Myelocytes % (Man) Cancelled Promyelocytes % (Man) Cancelled Blast Cells % (Manual) Cancelled Plasma Cell % (Manual) Cancelled Other Cells % Cancelled Nucleated RBC % Cancelled Neutrophils # (Manual) Cancelled Band Neutrophils # Cancelled Total Absolute Neuts Cancelled Lymphocytes # (Manual) Cancelled Prolymphocyte # Cancelled Reactive Lymphs # Cancelled Total Abs Lymphocytes Cancelled Monocytes # (Manual) Cancelled Eosinophils # (Manual) Cancelled Basophils # (Manual) Cancelled Metamyelocytes # (Man) Cancelled Myelocytes # (Manual) Cancelled Promyelocytes # (Man) Cancelled Blast Cells # (Man) Cancelled Plasma Cell # (Manual) Cancelled Other Cells # Cancelled Nucleated RBCs # (Man) Cancelled Hypersegmented Neuts Cancelled Hyposegmented Neuts Cancelled Hypogranular Neuts Cancelled Large Granular Lymphs Cancelled # Lrg Granular Lymphs Cancelled Hairy Cells Cancelled Smudge Cells Cancelled Toxic Granulation Cancelled Toxic Vacuolation Cancelled Dohle Bodies Cancelled [place] Rods Cancelled Platelet Estimate Cancelled Hypogranular Platelets Cancelled Giant Platelets Cancelled Platelet Satelliting Cancelled RBC Morphology Cancelled Polychromasia Cancelled Hypochromasia Cancelled Poikilocytosis Cancelled Basophilic Stippling Cancelled Anisocytosis Cancelled Microcytosis Cancelled Macrocytosis Cancelled Spherocytes Cancelled Pappenheimer Bodies Cancelled Sickle Cells Cancelled Target Cells Cancelled Tear Drop Cells Cancelled Ovalocytes Cancelled Stomatocytes Cancelled [place] Bodies Cancelled Echinocytes Cancelled Acanthocytes (Spur) Cancelled Rouleaux Cancelled RBC Agglutinates Cancelled Schistocytes Cancelled Sezary Cell Cancelled ABG pH 7.16 L* (7.35-7.45) ABG pCO2 17 L (35-46) mmHg ABG pO2 118 H (80-95) mmHg ABG HCO3 6 L (19-24) mmol/L ABG O2 Saturation 99.2 H (90-95) % ABG Base Excess -20.4 L (-9-1.8) mEq/L Devendra Test Pos (Pos) Oxygen Given 2 POC Sodium 123 L (135-144) mmol/L Sodium Cancelled 129 L POC Potassium 5.6 H (3.3-5.0) mmol/L Potassium Cancelled 3.5 POC Chloride 95 L (101-112) mmol/L Chloride Cancelled 101 Carbon Dioxide Cancelled 7 L* POC Total CO2 12 L (24-31) mmol/L Anion Gap Cancelled 21 H POC Anion Gap 22.0 (16-25) mmol/L POC BUN 131 H* (7-18) mg/dl BUN Cancelled 111 H Creatinine Cancelled 2.42 H POC Creatinine 2.6 H (0.6-1.3) mg/dl Est Cr Clr Drug Dosing Cancelled 17.1 Est GFR ( Amer) Cancelled 21.6 Est GFR (Non-Af Amer) Cancelled 18.7 BUN/Creatinine Ratio Cancelled 45.9 H Glucose Cancelled 897 H* POC Glucose (other) > 700 H* (70-99) mg/dl Lactate Cancelled 4.5 H* Calcium Cancelled 8.3 L POC Ioniz Calcium Michael 1.25 (1.12-1.32) mmol/l Magnesium Cancelled 1.7 Total Bilirubin Cancelled 0.9 AST Cancelled 7 L ALT Cancelled 6 L Alkaline Phosphatase Cancelled 268 H Total Protein Cancelled 4.0 L Albumin Cancelled 1.7 L Globulin Cancelled 2.3 L Albumin/Globulin Ratio Cancelled 0.7 L TSH Cancelled 4.493 Blood Parasites ID Cancelled Administered Medications Insulin Human Regular 250 (units/ Sodium Chloride) 250 mls @ 6.7 mls/hr IV .Q24H [facility]; Protocol Stop: 11/17/23 13:59 Last Admin: 10/18/23 14:38 Dose: 6.7 units/hr, 6.7 mls/hr Documented By: ROMEL Co-signed By: ERICK Sodium Chloride (Nss) 1,000 mls @ 999 mls/hr IV .Q1H1M [facility] Stop: 10/18/23 16:45 Last Admin: 10/18/23 14:57 Dose: 999 mls/hr Documented By: ROMEL Norepinephrine Bitartrate (Levophed/D5w) 4 mg in 250 mls @ 12.581 mls/hr IV .[id number] [facility]; Protocol Stop: 11/17/23 14:44 Last Admin: 10/18/23 14:58 Dose: 0.05 mcg/kg/min, 12.6 mls/hr Documented By: ROMEL Co-signed By: JONATHAN Discontinued Medications Hydrocortisone Sodium Succinate (Hydrocortisone Sod Succinate 100 Mg/2 Ml Vial) 200 mg IV NOW STA Stop: 10/18/23 14:51 Last Admin: 10/18/23 15:12 Dose: 200 mg Documented By: ROMEL Sodium Chloride (Nss) 1,000 mls @ 999 mls/hr IV .Q1H1M JAQUAN Stop: 10/18/23 14:00 Last Infusion: 10/18/23 15:16 Dose: Infused Documented By: Admin: 10/18/23 14:13 Dose: 999 mls/hr Documented By: ROMEL Cefepime HCl (Maxipime) 2,000 mg in 20 mls @ 5 mls/min IV NOW STA; Protocol Stop: 10/18/23 13:07 Last Admin: 10/18/23 13:36 Dose: 5 mls/min Documented By: ERICK Insulin Human Regular (Novolin-R Bolus From Bag) 6 units IV NOW ONE Stop: 10/18/23 14:16 Last Admin: 10/18/23 14:38 Dose: 6 units Documented By: ROMEL Co-signed By: ERICK Nystatin (Nystatin Cr 15 Gm Tube) 1 appln EXT NOW STA Stop: 10/18/23 13:09 Last Admin: 10/18/23 14:13 Dose: 1 appln Documented By: ROMEL Imaging Data Radiologist's Impression: Chest X-Ray 10/18/23 13:00 SUPINE PORTABLE AP CHEST RADIOGRAPH CLINICAL HISTORY: weakness COMPARISON STUDY: Chest radiograph February 06, 2018. FINDINGS: There is mild elevation of the left hemidiaphragm. Upper mediastinal widening is noted. Allowing for supine technique, this is likely similar to prior exam. Cardiomegaly is unchanged. There is pulmonary vascular congestion without overt pulmonary edema. Linear left lung densities favor atelectasis or scarring. No pneumothorax is identified on supine exam. Trace left pleural effusion. IMPRESSION: 1. Stable cardiomegaly. Pulmonary vascular congestion. 2. Trace left pleural effusion. ACT 112: Negative or not required by law. Electronically signed by: Corey Wilson M.D. 10/18/2023 3:[address] 10/18/23 13:03 CT OF THE HEAD WITHOUT CONTRAST CLINICAL HISTORY: Altered mental status. COMPARISON STUDY: Head CT July 12, 2015. CT DOSE: 1094.1 mGy.cm TECHNIQUE: Helical axial images of the head were obtained without IV contrast. Automated exposure control was utilized for the study. A dose lowering technique was utilized adhering to the principles of ALARA. FINDINGS: This study is mildly compromised by motion artifact. No acute intracranial hemorrhage, midline shift or mass effect is present. Encephalomalacia within the right [employer] distribution is unchanged. 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 A 1.3 cm hypodense focus within the right cerebellar hemisphere on image 5 of 28 is new since prior head CT. This is age indeterminate. White matter hypodensity suggests small vessel disease. There are no findings to suggest acute dural sinus thrombosis or acute territorial infarct. Trace fluid within the bilateral mastoid air cells. There is polypoid mucosal thickening of the left maxillary and sphenoid sinuses. IMPRESSION: 1. No acute intracranial hemorrhage. Exam mildly compromised by motion artifact. 2. 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 3. 1.3 cm hypodense focus within the right cerebellar hemisphere, new since head CT of July 12, 2015. This represents a small interval age indeterminate infarct. ACT 112: Negative or not required by law. Electronically signed by: Corey Wilson M.D. 10/18/2023 1:56 PM Discharge Plan Visit Data Chief Complaint: Hyperglycemia Stated Complaint: STROKE SX ED Provider: Neva Moreland Discharge Problem: DKA (diabetic ketoacidosis), Sepsis, Skin breakdown, Poor hygiene, Medical non- compliance Discharge Problem: DKA (diabetic ketoacidosis) Qualifiers: Diabetes mellitus type: type 2 Diabetes mellitus complication detail: with coma Qualified Code(s): E11.11 - Type 2 diabetes mellitus with ketoacidosis with coma Sepsis Qualifiers: Sepsis type: sepsis due to unspecified organism Sepsis acute organ dysfunction status: with acute organ dysfunction Severe sepsis acute organ dysfunction type: acute renal failure Acute renal failure type: unspecified Severe sepsis shock status: with septic shock Qualified Code(s): A41.9 - Sepsis, unspecified organism
[2023-10-18] MEDS: CEFEPIME 2,000 MG/20 ML VIAL IV STA (13:36)
--- NOTE | 2023-10-18 13:58 | CT Scan Report ---
CT OF THE HEAD WITHOUT CONTRAST CLINICAL HISTORY: Altered mental status. COMPARISON STUDY: Head CT July 12, 2015. CT DOSE: 1094.1 mGy.cm TECHNIQUE: Helical axial images of the head were obtained without IV contrast. Automated exposure con trol was utilized for the study. A dose lowering technique was utilized adhering to the principles o f ALARA. FINDINGS: This study is mildly compromised by motion artifact. No acute intracranial hemorrhage, midl ine shift or mass effect is present. Encephalomalacia within the right [employer]ER OPERATOR distribution is unchanged. 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 A 1.3 cm hypodense focus within the right cerebellar hemisphere on i mage 5 of is new since prior head CT. This is age indeterminate. White matter hypodensity suggests small vessel disease. There are no findings to suggest acute dural sinus thrombosis or acute territo rial infarct. Trace fluid within the bilateral mastoid air cells. There is polypoid mucosal thickenin g of the left maxillary and sphenoid sinuses. IMPRESSION: 1. No acute intracranial hemorrhage. Exam mildly compromised by motion artifact. 2. 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 3. 1.3 cm hypodense focus within the right cerebellar hemisphere, new since head CT of July 12 015. This represents a small interval age indeterminate infarct. ACT 112: Negative or not required by law. Electronically signed by: Corey Wilson M.D. 10/18/2023 1:56 PM
[2023-10-18] MEDS ORDERED: GLUCOSE 40% GEL 15 GM TUBE PO PRN (14:00)
[2023-10-18] MEDS ORDERED: GLUCOSE 10 TAB/TUBE PO PRN (14:00)
[2023-10-18] MEDS ORDERED: CARBOHYDRATES FOR HYPOGLYCEMIA PO PRN (14:00)
[2023-10-18] MEDS ORDERED: GLUCAGON FOR INJ 1 MG VIAL SQ PRN (14:00)
[2023-10-18] MEDS ORDERED: DEXTROSE 50% 50 ML SYRINGE IV PRN (14:00)
[2023-10-18] MEDS: NYSTATIN CR 15 GM TUBE EXT STA (14:13)
[2023-10-18] MEDS: SODIUM CHLORIDE 0.9% 1,000 ML IV SCH ×2 (14:13→14:57)
[2023-10-18] MEDS: INSULIN REGULAR 250 UNITS in SODIUM CHLORIDE 0.9% 247.5 ML IV SCH (14:38)
[2023-10-18] MEDS: NovoLIN-R BOLUS FROM BAG IV ONE (14:38)
[2023-10-18] MEDS ORDERED: STAT IV Infusion **Titration per Protocol STA ×6 (14:44→21:18)
[2023-10-18 14:52] LABS: Base Excess ABG -20.4 mEq/L (-9-1.8); HCO3 ABG 6 mmol/L (19-24); Oxygen Saturation ABG 99.2 % (90-95); PCO2 ABG 17 mmHg (35-46); PO2 ABG 118 mmHg (80-95)
[2023-10-18 14:56] LABS: Allen Test Pos (Pos)
[2023-10-18] MEDS: NOREPINEPHRINE/D5W 4 MG/250 ML PLCT IV SCH (14:58)
--- NOTE | 2023-10-18 15:04 | History & Physical Report ---
Date of Service October 18, 2023 Assessment & Plan (1) Sepsis: Plan: This is a 78 y/o female with history of diabetes, prior CVA with residual left hemiparesis, hypothyroidism, HTN, GERD, dyslipidemia, and other history are outlined below who was brought in by EMS unresponsive. Per EMS, pt was found lying in bed covered in urine and blood. She reportedly lives in her son's basement, where she is bedbound, and he states that he cares for her. On review of her outpatient records, there have been some issues with medical non- compliance. Her most recent A1c on 08/03/23 was 10.5 and TSH same day was 19.20. She was supposed to follow up with glycemic pharmacy but never made the appointment. Her son reportedly manages her medications but states that she has not taken them the last few days. In the ED, she was noted to be hypotensive and hypothermic with marked dehydration making it difficult to obtain access. Once access was obtained, she received 3L of IVF but was persistently hypotensive so pressors were initiated. She was noted to have an erythematous desquamating rash encompassing her entire groin area, and son notes that she wears diapers that he changes when needed. She was given cefepime as part of the sepsis protocol. CT head showed possible CVA in the right cerebellar hemisphere. ED case management notified office of aging due to concern for neglect. Investigation pending. Grave prognosis was discussed with the son at the bedside. - Admit to the ICU - Pressors initiated due to refractory hypotension despite fluid resuscitation - Critical care consult - Dr. Adams discussed case with Dr. Covington - Continue broad spectrum antibiotics - Continue insulin gtt initiated in the ED - Labs from the ED pending - will f/u results once available (2) DKA (diabetic ketoacidosis): (3) Shock circulatory: (4) Acute renal failure: (5) High anion gap metabolic acidosis: (6) Paralytic stroke: Plan: Chronic left hemiparesis (7) Hypothyroidism: (8) Thrombocytopenia: Plan Pt seen and reviewed with collaborating physician, Dr. Adams. Appreciate critical care input and assistance with management Please see physician addendum for the rest of the plan of care. Hany Bennett PA-C History of Present Illness Chief Complaint: unresponsive Primary Care Provider: Leslie Forbes MD This is a 78 y/o female with history of diabetes, prior CVA with residual left hemiparesis, hypothyroidism, HTN, GERD, dyslipidemia, and other history are outlined below who was brought in by EMS unresponsive. History is obtained from her outpatient Epic chart, the ED provider, and the son at bedside. Pt apparently lives with her son in an unfinished basement. Her son reports that he is her primary flume ride operator but that they have a caregiver who comes in on Sundays. Pt is bedbound at baseline, has chronic left hemiparesis from a prior CVA. She uses diapers due to her limited ambulatory ability, and her son reports that he changes these when needed. On Thursday, four days ago, she seemed to be at baseline mental status and was eating/drinking as per usual. He reports that she drinks around a cup of water per hour when she is more awake, often stating that she's thirsty. However, since , her son reports that she has become increasingly confused and yesterday, she wasn't talking any oral intake at all and was not responding verbally to him. He usually puts her meds in a pillbox for her to take and states that she takes them most of the time but hasn't been taking them the last few days due to somnolence. Her son checks her sugar at times at home and reports a fasting sugar that is often in the 300s. Today, she was found unresponsive so EMS was called. EMS reportedly found patient lying on the bed covered in urine and blood. She was noted to have significant wounds of her groin that were bleeding. An IO was placed for access in the field and she was started on IV fluids via the IO. She was noted to be hypotensive and hypothermic. In the ED, they had significant difficultly obtaining blood for lab work and establishing IV access as pt was remarkably dehydrated. Access was obtained in the foot and right hand, and pt was given 3L of IVF. Labs showed probable sepsis and DKA so she was referred for admission. Pt's son brought her prescription bottles in from home, and they were reviewed to determine last date filled as it is unclear if pt has been taking these appropriately. Famotidine - filled 04/22/23 Glipizide - filled 05/18/23 Hydralazine - filled 02/06/22 Jardiance - filled 05/18/23 Levothyroxine - filled 02/27/23 Tradjenta - filled 04/16/23 Lisinopril - filled 05/10/23 Metformin ER - filled 01/13/22 Metoprolol tartrate - filled 05/10/23 Potassium - filled 08/03/23 Allergies Allergy/AdvReac Type Severity Reaction Status Date / Time No Known Allergies Allergy Unknown NONE Unverified 02/03/18 15:50 Home Medications Medication Instructions Recorded Confirmed Type ergocalciferol (vitamin D2) 1,000 2,000 unit PO DAILY ##0 01/12/13 10/18/23 History unit capsule aspirin 81 mg tablet 81 mg PO DAILY ##0 06/07/13 10/18/23 History atorvastatin 20 mg tablet 20 mg PO DAILY 10/18/23 10/18/23 History empagliflozin 25 mg tablet 25 mg PO QAM 10/18/23 10/18/23 History (Jardiance) famotidine 40 mg tablet 40 mg PO QAM 10/18/23 10/18/23 History glipizide 5 mg tablet 10 mg PO DAILY 10/18/23 10/18/23 History hydralazine 25 mg tablet 25 mg PO TID 10/18/23 10/18/23 History levothyroxine 175 mcg tablet 218.75 mcg PO DAILY 10/18/23 10/18/23 History linagliptin 5 mg tablet (Tradjenta) 5 mg PO QAM 10/18/23 10/18/23 History lisinopril 2.5 mg tablet 2.5 mg PO QAM 10/18/23 10/18/23 History metformin 500 mg tablet,extended 1,000 mg PO BID 10/18/23 10/18/23 History release 24 hr metoprolol tartrate 50 mg tablet 50 mg PO BID 10/18/23 10/18/23 History potassium chloride 10 mEq 10 meq PO BID 10/18/23 10/18/23 History tablet,extended release(part/cryst) (Mandie Fuentes) Past Med/Surg History Medical History Depression GERD (gastroesophageal reflux disease) Hemiparesis affecting left side as late effect of cerebrovascular accident (CVA) Dyslipidemia (high LDL; low HDL) Vitamin D deficiency Essential hypertension Diabetes mellitus Headache Contusion of finger of right hand Hypothyroidism Paralytic stroke (01/12/13) Surgical History History of laparoscopic cholecystectomy (06/07/13) History of total hysterectomy with bilateral salpingo-oophorectomy (BSO) Social History Smoking Status: Unknown if ever smoked Cigarettes Per Day: unk; Preferred Language: Guamanian Communication Ability: Impaired Communication Ability Comment: tubes and vented Photographic Reproduction Technician Required: No Beliefs That Will Affect Care: None Current Living Situation: Family Current Living Situation Comment: lives w family Feels Safe at Home: Yes Assistive Devices: None and Oxygen - Continuous Review of Systems Review of Systems: Unobtainable due to reduced consciousness Physical Exam Physical Exam: General: unresponsive, agonal breathing HEENT: PERRL but sluggish Heart: RRR Lungs: diminished breath sounds bilaterally Abdomen: soft, +BS Extremities: no pedal edema Skin: marked erythematous desquamating rash entire groin and perirectal region Results & Data Results & Data Vital Signs (Past 12 Hours) Vital Signs Temp Pulse Pulse Resp BP Pulse Ox O2 Del Method 10/18/23 14:51 33.8 C L 83 16 95 10/18/23 14:51 75/38 L 10/18/23 14:50 33.8 C L 83 12 10/18/23 14:46 33.8 C L 79 15 92 10/18/23 14:46 62/30 L 10/18/23 14:45 33.8 C L 82 13 93 10/18/23 14:43 62/26 L 10/18/23 14:43 33.8 C L 83 15 97 10/18/23 14:42 57/24 L 10/18/23 14:42 33.8 C L 83 14 97 10/18/23 14:40 33.8 C L 84 16 96 10/18/23 14:35 33.7 C L 86 15 100 10/18/23 14:30 33.7 C L 88 19 100 10/18/23 14:26 33.6 C L 89 16 99 10/18/23 14:26 86/29 L 10/18/23 14:25 33.6 C L 88 19 99 02/18/24 14:21 68/54 L 10/18/23 14:21 33.4 C L 85 15 100 10/18/23 14:20 33.4 C L 86 16 100 10/18/23 14:16 33.1 C L 86 14 100 10/18/23 14:16 71/41 L 10/18/23 14:15 33.0 C L 87 16 10/18/23 14:13 78/52 L 10/18/23 14:13 32.7 C L 88 16 10/18/23 14:11 32.3 C L 86 L 10/18/23 14:11 68/43 L 10/18/23 14:10 31.9 C L 84 13 76 L 10/18/23 14:09 75/49 L 10/18/23 14:09 31.4 C L 87 15 73 L 10/18/23 14:06 30.5 C L 93 H 28 H 86 L 10/18/23 14:06 87/48 L 10/18/23 14:05 24.0 C L 90 10 L 80 L 10/18/23 14:02 92/53 L 10/18/23 14:02 30.2 C L 94 H 17 83 L 10/18/23 14:01 22.6 C L 90 26 H 95 10/18/23 14:01 73/31 L 10/18/23 14:00 25.1 C L 87 16 91 10/18/23 13:58 32.2 C L 94 H 25 H 100 10/18/23 13:58 78/40 L 10/18/23 13:56 34.1 C L 87 19 97 10/18/23 13:56 72/41 L 10/18/23 13:55 34.0 C L 88 18 10/18/23 13:54 34.0 C L 88 17 10/18/23 13:54 70/45 L 10/18/23 13:51 34.0 C L 87 13 10/18/23 13:51 34 C L 89 22 10/18/23 13:42 33.4 C L 83 15 98 10/18/23 13:42 79/47 L 10/18/23 13:40 33.0 C L 94 H 4 L 90 10/18/23 13:39 32.8 C L 88 17 95 02/18/24 13:39 51/37 L 10/18/23 13:36 31.5 C L 88 18 93 10/18/23 13:36 85/33 L 10/18/23 13:35 30.6 C L 87 15 86 L 10/18/23 13:33 78/39 L 10/18/23 13:33 28.4 C L 88 21 95 10/18/23 13:31 78/39 L 10/18/23 13:31 93 H 25 H 97 10/18/23 13:30 89 18 10/18/23 13:27 78/48 L 10/18/23 13:27 88 22 98 10/18/23 13:26 71/25 L 10/18/23 13:26 93 H 16 97 10/18/23 13:25 95 H 22 96 10/18/23 13:22 91 H 26 H 98 10/18/23 13:22 78/22 L 10/18/23 13:20 89 21 97 10/18/23 13:18 75/43 L 10/18/23 13:18 90 24 95 10/18/23 13:15 88/47 L 10/18/23 13:12 35.2 C L 86 15 88/46 L 96 Nasal Cannula 10/18/23 13:00 89 O2 Flow Rate 10/18/23 14:51 10/18/23 14:51 10/18/23 14:50 10/18/23 14:46 10/18/23 14:46 10/18/23 14:45 10/18/23 14:43 10/18/23 14:43 10/18/23 14:42 10/18/23 14:42 10/18/23 14:40 10/18/23 14:35 10/18/23 14:30 10/18/23 14:26 10/18/23 14:26 10/18/23 14:25 10/18/23 14:21 10/18/23 14:21 10/18/23 14:20 10/18/23 14:16 10/18/23 14:16 10/18/23 14:15 10/18/23 14:13 10/18/23 14:13 10/18/23 14:11 10/18/23 14:11 10/18/23 14:10 10/18/23 14:09 10/18/23 14:09 10/18/23 14:06 10/18/23 14:06 10/18/23 14:05 10/18/23 14:02 10/18/23 14:02 10/18/23 14:01 10/18/23 14:01 10/18/23 14:00 10/18/23 13:58 10/18/23 13:58 10/18/23 13:56 10/18/23 13:56 10/18/23 13:55 10/18/23 13:54 10/18/23 13:54 10/18/23 13:51 10/18/23 13:51 10/18/23 13:42 10/18/23 13:42 10/18/23 13:40 10/18/23 13:39 10/18/23 13:39 10/18/23 13:36 10/18/23 13:36 10/18/23 13:35 10/18/23 13:33 10/18/23 13:33 10/18/23 13:31 10/18/23 13:31 10/18/23 13:30 10/18/23 13:27 10/18/23 13:27 10/18/23 13:26 10/18/23 13:26 10/18/23 13:25 10/18/23 13:22 10/18/23 13:22 10/18/23 13:20 10/18/23 13:18 10/18/23 13:18 10/18/23 13:15 10/18/23 13:12 2 10/18/23 13:00 Laboratory Results Laboratory Results - last 24 hr 10/18/23 10/18/23 10/18/23 13:09 13:31 14:42 WBC Cancelled 31.19 H* RBC Cancelled 3.80 L Hgb Cancelled 9.6 L POC Hgb 13.9 Hct Cancelled 30.9 L POC Hct 41 MCV Cancelled 81.3 MCH Cancelled 25.3 MCHC Cancelled 31.1 L RDW Std Deviation Cancelled 54.4 H RDW Coeff of Jasson Cancelled 18.4 H Plt Count Cancelled 7 L* MPV Cancelled Immature Gran % (Auto) Cancelled Neut % (Auto) Cancelled Lymph % (Auto) Cancelled York % (Auto) Cancelled Eos % (Auto) Cancelled Baso % (Auto) Cancelled Neut # (Auto) Cancelled Lymph # (Auto) Cancelled [place] # (Auto) Cancelled Eos # (Auto) Cancelled Baso # (Auto) Cancelled Immature Gran # (Auto) Cancelled Absolute Nucleated RBC Cancelled Nucleated RBC % (auto) Cancelled Neutrophils % (Manual) Cancelled Band Neutrophils % Cancelled Lymphocytes % (Manual) Cancelled Prolymphocyte % Cancelled Reactive Lymphs % (Man) Cancelled Monocytes % (Manual) Cancelled Eosinophils % (Manual) Cancelled Basophils % (Manual) Cancelled Metamyelocytes % (Man) Cancelled Myelocytes % (Man) Cancelled Promyelocytes % (Man) Cancelled Blast Cells % (Manual) Cancelled Plasma Cell % (Manual) Cancelled Other Cells % Cancelled Nucleated RBC % Cancelled Neutrophils # (Manual) Cancelled Band Neutrophils # Cancelled Total Absolute Neuts Cancelled Lymphocytes # (Manual) Cancelled Prolymphocyte # Cancelled Reactive Lymphs # Cancelled Total Abs Lymphocytes Cancelled Monocytes # (Manual) Cancelled Eosinophils # (Manual) Cancelled Basophils # (Manual) Cancelled Metamyelocytes # (Man) Cancelled Myelocytes # (Manual) Cancelled Promyelocytes # (Man) Cancelled Blast Cells # (Man) Cancelled Plasma Cell # (Manual) Cancelled Other Cells # Cancelled Nucleated RBCs # (Man) Cancelled Hypersegmented Neuts Cancelled Hyposegmented Neuts Cancelled Hypogranular Neuts Cancelled Large Granular Lymphs Cancelled # Lrg Granular Lymphs Cancelled Hairy Cells Cancelled Smudge Cells Cancelled Toxic Granulation Cancelled Toxic Vacuolation Cancelled Dohle Bodies Cancelled [place] Rods Cancelled Platelet Estimate Cancelled Hypogranular Platelets Cancelled Giant Platelets Cancelled Platelet Satelliting Cancelled RBC Morphology Cancelled Polychromasia Cancelled Hypochromasia Cancelled Poikilocytosis Cancelled Basophilic Stippling Cancelled Anisocytosis Cancelled Microcytosis Cancelled Macrocytosis Cancelled Spherocytes Cancelled Pappenheimer Bodies Cancelled Sickle Cells Cancelled Target Cells Cancelled Tear Drop Cells Cancelled Ovalocytes Cancelled Stomatocytes Cancelled [place] Bodies Cancelled Echinocytes Cancelled Acanthocytes (Spur) Cancelled Rouleaux Cancelled RBC Agglutinates Cancelled Schistocytes Cancelled Sezary Cell Cancelled ABG pH 7.16 L* ABG pCO2 17 L ABG pO2 118 H ABG HCO3 6 L ABG O2 Saturation 99.2 H ABG Base Excess -20.4 L Devendra Test Pos Oxygen Given 2 POC Sodium 123 L Sodium Cancelled Pending POC Potassium 5.6 H Potassium Cancelled Pending POC Chloride 95 L Chloride Cancelled Pending Carbon Dioxide Cancelled Pending POC Total CO2 12 L Anion Gap Cancelled Pending POC Anion Gap 22.0 POC BUN 131 H* BUN Cancelled Pending Creatinine Cancelled Pending POC Creatinine 2.6 H Est Cr Clr Drug Dosing Cancelled Pending Est GFR ( Amer) Cancelled Pending Est GFR (Non-Af Amer) Cancelled Pending BUN/Creatinine Ratio Cancelled Pending Glucose Cancelled Pending POC Glucose (other) > 700 H* Estimat Average Glucose Pending Hemoglobin A1c Pending Lactate Cancelled 4.5 H* Calcium Cancelled Pending POC Ioniz Calcium Michael 1.25 Magnesium Cancelled Pending Total Bilirubin Cancelled Pending AST Cancelled Pending ALT Cancelled Pending Alkaline Phosphatase Cancelled Pending Total Protein Cancelled Pending Albumin Cancelled Pending Globulin Cancelled Pending Albumin/Globulin Ratio Cancelled Pending TSH Cancelled Pending Random Cortisol Nasal Screen MRSA (PCR) SARS-CoV-2 (PCR) Influenza Type A (PCR) Influenza Type B (PCR) RSV (RT-PCR) Blood Parasites ID Cancelled 10/18/23 10/18/23 14:49 Unknown WBC RBC Hgb POC Hgb Hct POC Hct MCV MCH MCHC RDW Std Deviation RDW Coeff of Jasson Plt Count MPV Immature Gran % (Auto) Neut % (Auto) Lymph % (Auto) [place] % (Auto) Eos % (Auto) Baso % (Auto) Neut # (Auto) Lymph # (Auto) [place] # (Auto) Eos # (Auto) Baso # (Auto) Immature Gran # (Auto) Absolute Nucleated RBC Nucleated RBC % (auto) Neutrophils % (Manual) Band Neutrophils % Lymphocytes % (Manual) Prolymphocyte % Reactive Lymphs % (Man) Monocytes % (Manual) Eosinophils % (Manual) Basophils % (Manual) Metamyelocytes % (Man) Myelocytes % (Man) Promyelocytes % (Man) Blast Cells % (Manual) Plasma Cell % (Manual) Other Cells % Nucleated RBC % Neutrophils # (Manual) Band Neutrophils # Total Absolute Neuts Lymphocytes # (Manual) Prolymphocyte # Reactive Lymphs # Total Abs Lymphocytes Monocytes # (Manual) Eosinophils # (Manual) Basophils # (Manual) Metamyelocytes # (Man) Myelocytes # (Manual) Promyelocytes # (Man) Blast Cells # (Man) Plasma Cell # (Manual) Other Cells # Nucleated RBCs # (Man) Hypersegmented Neuts Hyposegmented Neuts Hypogranular Neuts Large Granular Lymphs # Lrg Granular Lymphs Hairy Cells Smudge Cells Toxic Granulation Toxic Vacuolation Dohle Bodies [place] Rods Platelet Estimate Hypogranular Platelets Giant Platelets Platelet Satelliting RBC Morphology Polychromasia Hypochromasia Poikilocytosis Basophilic Stippling Anisocytosis Microcytosis Macrocytosis Spherocytes Pappenheimer Bodies Sickle Cells Target Cells Tear Drop Cells Ovalocytes Stomatocytes [place] Bodies Echinocytes Acanthocytes (Spur) Rouleaux RBC Agglutinates Schistocytes Sezary Cell ABG pH ABG pCO2 ABG pO2 ABG HCO3 ABG O2 Saturation ABG Base Excess Devendra Test Oxygen Given POC Sodium Sodium POC Potassium Potassium POC Chloride Chloride Carbon Dioxide POC Total CO2 Anion Gap POC Anion Gap POC BUN BUN Creatinine POC Creatinine Est Cr Clr Drug Dosing Est GFR ( Amer) Est GFR (Non-Af Amer) BUN/Creatinine Ratio Glucose POC Glucose (other) Estimat Average Glucose Hemoglobin A1c Lactate Calcium POC Ioniz Calcium Michael Magnesium Total Bilirubin AST ALT Alkaline Phosphatase Total Protein Albumin Globulin Albumin/Globulin Ratio TSH Random Cortisol Pending Nasal Screen MRSA (PCR) Pending SARS-CoV-2 (PCR) Pending Influenza Type A (PCR) Pending Influenza Type B (PCR) Pending RSV (RT-PCR) Pending Blood Parasites ID Diagnostic Findings Chest X-Ray 10/18/23 13:00 SUPINE PORTABLE AP CHEST RADIOGRAPH CLINICAL HISTORY: weakness COMPARISON STUDY: Chest radiograph February 06, 2018. FINDINGS: There is mild elevation of the left hemidiaphragm. Upper mediastinal widening is noted. Allowing for supine technique, this is likely similar to prior exam. Cardiomegaly is unchanged. There is pulmonary vascular congestion without overt pulmonary edema. Linear left lung densities favor atelectasis or scarring. No pneumothorax is identified on supine exam. Trace left pleural effusion. IMPRESSION: 1. Stable cardiomegaly. Pulmonary vascular congestion. 2. Trace left pleural effusion. ACT 112: Negative or not required by law. Electronically signed by: Corey Wilson M.D. 10/18/2023 3:[address] 10/18/23 13:03 CT OF THE HEAD WITHOUT CONTRAST CLINICAL HISTORY: Altered mental status. COMPARISON STUDY: Head CT July 12, 2015. CT DOSE: 1094.1 mGy.cm TECHNIQUE: Helical axial images of the head were obtained without IV contrast. Automated exposure control was utilized for the study. A dose lowering technique was utilized adhering to the principles of ALARA. FINDINGS: This study is mildly compromised by motion artifact. No acute intracranial hemorrhage, midline shift or mass effect is present. Encephalomalacia within the right PHOTOGRAPHIC REPRODUCTION TECHNICIAN distribution is unchanged. 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 A 1.3 cm hypodense focus within the right cerebellar hemisphere on image 5 of 28 is new since prior head CT. This is age indeterminate. White matter hypodensity suggests small vessel disease. There are no findings to suggest acute dural sinus thrombosis or acute territorial infarct. Trace fluid within the bilateral mastoid air cells. There is polypoid mucosal thickening of the left maxillary and sphenoid sinuses. IMPRESSION: 1. No acute intracranial hemorrhage. Exam mildly compromised by motion artifact. 2. No change in an old right PHOTOGRAPHIC REPRODUCTION TECHNICIAN territory infarct. 3. 1.3 cm hypodense focus within the right cerebellar hemisphere, new since head CT of July 12, 2015. This represents a small interval age indeterminate infarct. ACT 112: Negative or not required by law. Electronically signed by: Corey Wilson M.D. 10/18/2023 1:56 PM Medications Administered Insulin Human Regular 250 (units/ Sodium Chloride) 250 mls @ 6.7 mls/hr IV .Q24H [facility]; Protocol Stop: 11/17/23 13:59 Last Admin: 10/18/23 14:38 Dose: 6.7 units/hr, 6.7 mls/hr Documented By: ROMEL Co-signed By: ERICK Sodium Chloride (Nss) 1,000 mls @ 999 mls/hr IV .Q1H1M JAQUAN Stop: 10/18/23 16:45 Last Admin: 10/18/23 14:57 Dose: 999 mls/hr Documented By: ROMEL Norepinephrine Bitartrate (Levophed/D5w) 4 mg in 250 mls @ 12.581 mls/hr IV .[id number] [facility]; Protocol Stop: 11/17/23 14:44 Last Admin: 10/18/23 14:58 Dose: 0.05 mcg/kg/min, 12.6 mls/hr Documented By: ROMEL Co-signed By: COUNTS INCLUDE 234 BEDS AT THE [facility] Discontinued Medications Hydrocortisone Sodium Succinate (Hydrocortisone Sod Succinate 100 Mg/2 Ml Vial) 200 mg IV NOW STA Stop: 10/18/23 14:51 Last Admin: 10/18/23 15:12 Dose: 200 mg Documented By: ROMEL Sodium Chloride (Nss) 1,000 mls @ 999 mls/hr IV .Q1H1M JAQUAN Stop: 10/18/23 14:00 Last Infusion: 10/18/23 15:16 Dose: Infused Documented By: Admin: 10/18/23 14:13 Dose: 999 mls/hr Documented By: ROMEL Cefepime HCl (Maxipime) 2,000 mg in 20 mls @ 5 mls/min IV NOW STA; Protocol Stop: 10/18/23 13:07 Last Admin: 10/18/23 13:36 Dose: 5 mls/min Documented By: ERICK Insulin Human Regular (Novolin-R Bolus From Bag) 6 units IV NOW ONE Stop: 10/18/23 14:16 Last Admin: 10/18/23 14:38 Dose: 6 units Documented By: ROMEL Co-signed By: ERICK Nystatin (Nystatin Cr 15 Gm Tube) 1 appln EXT NOW STA Stop: 10/18/23 13:09 Last Admin: 10/18/23 14:13 Dose: 1 appln Documented By: ROMEL Code Status & VTE Plan VTE Prophylaxis Plan VTE Prophylaxis will be ordered: Yes Supervising Physician Co-Signing Physician Notes I have seen and examined the patient and have discussed the case with the provider above. I have reviewed the advanced practitioner's documentation, and I agree with, and take responsibility for that plan of care. 78-year-old female with known uncontrolled diabetes on insulin along with other comorbidities including previous stroke, hypothyroidism and in a state of immobility at home being cared for by her son presents today via EMS for altered mental status. Per EMS the patient lives in the basement of the home and was found lying on the bed covered in blood and urine there was significant wounds of the groin that were bleeding blood sugar was over 600 and she was hypotensive and started on IV fluids through an IO access. She was unresponsive with occasional eye-opening on arrival to the ER. Multiple attempts for IV access were unsuccessful. Ultimately the ER doctor had to obtain blood work through a stick in the right brachial artery. She was given broad-spectrum antibiotics and given an additional 3 L normal saline for persistent hypotension which was ultimately refractory to fluid resuscitation attempts and required pressors. CT imaging of the head revealed a questionable age-indeterminate infarct in the cerebellum. Lab work revealed derangements consistent with sepsis and DKA with a significant leukocytosis and left shift. She had acute renal failure a BUN of 130 and a creatinine of 2.43. Glucose was elevated at 897. She was hypothermic. On exam she was obtunded and unresponsive but oxygenating well on 2 L nasal cannula. She had significant macerated tissue to the groin area which extended around in the perineal area up and through the intergluteal fold posteriorly. She did have some pressure injury in the intergluteal fold. She also had maceration to the upper left back area around where her sports bra was located. Physical exam is otherwise noted above. Her son and another man who was described as a once weekly flume ride operator were in the room and we discussed the grave prognosis. I explained to him that she may in the next 24 hours would give us a better idea of successful these treatments will be. He verbalized understanding. He reports to me that she has bedbound and he gives her food and water which she typically asks for. He reports that she was not speaking yesterday and did not ask him for food or water. He reports that she was sleepy. He reports that she wears diapers and he cleans her front to back when he changes her soiled diaper. He reports that a couple of days ago she was looking normal but in the last 48 hours it appears things were changing. He is a poor historian and the flume ride operator offers nothing additional to the story. Son also reports that he gives her medications but on later inspection with the bottles these appear to be , and it is not clear if patient has been compliant with medication or not. She was transition to the ICU and intubated requiring additional pressor support. She was started on hydrocortisone for severe sepsis and has persistent hyperglycemia on insulin drip. There is a significant concern for infection with her groin wound. Chest x-ray revealed pulmonary vascular congestion. Head CT as noted above. Additio nal abdomen pelvis CT is being ordered in the ICU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
[2023-10-18 15:08] LABS: pH ABG 7.16 (7.35-7.45)
[2023-10-18] MEDS: HYDROCORTISONE SOD SUCCINATE 100 MG/2 ML VIAL IV STA (15:12)
[2023-10-18 15:13] LABS: Hematocrit (blood only) 30.9 % (37.0-47.0); Hemoglobin 9.6 g/dl (12.0-16.0); Mean Corpuscular Hemoglobin 25.3 pg (25.0-34.0); Mean Corpuscular Hgb Conc 31.1 g/dL (32.0-36.0); Mean Corpuscular Volume 81.3 fL (80.0-100.0); Platelet Count 7 K/uL (130-400); RDW Coefficient of Variation 18.4 % (11.5-14.5); RDW Standard Deviation 54.4 fL (36.4-46.3); White Blood Count 31.19 K/ul (4.8-10.8)
--- NOTE | 2023-10-18 15:26 | XRay Report ---
SUPINE PORTABLE AP CHEST RADIOGRAPH CLINICAL HISTORY: weakness COMPARISON STUDY: Chest radiograph February 06, 2018. FINDINGS: There is mild elevation of the left hemidiaphragm. Upper mediastinal widening is noted. All owing for supine technique, this is likely similar to prior exam. Cardiomegaly is unchanged. There is pulmonary vascular congestion without overt pulmonary edema. Linear left lung densities favor atelec tasis or scarring. No pneumothorax is identified on supine exam. Trace left pleural effusion. IMPRESSION: 1. Stable cardiomegaly. Pulmonary vascular congestion. 2. Trace left pleural effusion. ACT 112: Negative or not required by law. Electronically signed by: Corey Wilson M.D. 10/18/2023 3:25 PM
[2023-10-18 15:38] LABS: Albumin Globulin Ratio 0.7 (0.9-2); Albumin Level 1.7 gm/dl (3.4-5.0); BUN Creatinine Ratio 45.9 (10-20); Bilirubin,Total 0.9 mg/dl (0.2-1.0); Calcium 8.3 mg/dl (8.6-10.3); Creatinine Clr Calc Pharmacy 17.1 ml/min; Est GFR (African American) 21.6 ml/min; Est GFR (Non-African American) 18.7 ml/min; Globulin 2.3 gm/dl (2.5-4.0); Magnesium 1.7 mg/dl (1.7-2.4); Potassium 3.5 mmol/L (3.5-5.1); Thyroid Stimulating Hormone 4.493 uIu/ml (0.300-4.500)
[2023-10-18 15:43] LABS: Influenza A virus by PCR Negative (Neg); Influenza B virus by PCR Negative (Neg); RSV by PCR Negative (Neg); SARS CoV2 RNA(COVID-19) Ceph NEGATIVE (Negative)
[2023-10-18 15:50] LABS: ALC (manual) 1.56 K/uL (1.2-3.4); ANC (manual) 27.14 K/uL (1.4-6.5); Dohle Bodies 1+; Echinocytes 3+; Lymphocytes # (manual) 1.56 K/uL (1.2-3.4); Lymphocytes % (manual) 5 %; Metamyelocytes # (manual) 0.94 K/uL (0-0); Metamyelocytes % (manual) 3 %; Monocytes # (manual) 1.56 K/uL (0.11-0.59); Monocytes % (manual) 5 %; Neutrophils # (manual) 27.14 K/uL (1.40-6.50); Neutrophils % (manual) 87 %; Polychromasia 1+; Toxic Granulation 1+; Toxic Vacuolation 1+
[2023-10-18] MEDS: NOREPINEPHRINE/D5W 4 MG/250 ML IV ONE (15:50)
[2023-10-18] MEDS ORDERED: VANCOMYCIN HCL 1,250 MG in SODIUM CHLORIDE 0.9% 500 ML IV ONE (16:19)
[2023-10-18] MEDS ORDERED: VANCOMYCIN CONSULT ACTIVE PRN (16:19)
[2023-10-18] MEDS ORDERED: ICU Protocol for HYPERglycemia SCH (16:30)
--- NOTE | 2023-10-18 16:31 | Pharmacy Report ---
Pharmacy PK ABX Note - Date of Service October 18, 2023 - Assessment and Plan Assessment 78 year old F receiving vancomycin for empiric treatment. Pertinent microbiologic data includes: nasal MRSA screen negative. Blood cultures pending. Patient is hypothermic on admission, hypotensive, initial lactate 4.5. Patient received a dose of cefepime in the ED. SCr is elevated at 2.42, will dose by levels for extended half life. Plan Vancomycin * Loading dose: 1500 mg IV x 1 * Random level 10/19 AM Pharmacy will continue to follow and will adjust dose/frequency as necessary. Thank you. Pharmacy has transitioned to AUC monitoring for vancomycin. AUC/PABLO is the preferred PK/PD target and is associated with decreased risk of nephrotoxicity compared to traditional trough targets.
--- NOTE | 2023-10-18 16:31 | Critical Care Consultation ---
Date of Consultation October 18, 2023 Assessment & Plan (1) Shock circulatory: (2) DKA (diabetic ketoacidosis): (3) Sepsis: (4) Acute renal failure: (5) High anion gap metabolic acidosis: (6) Paralytic stroke: (7) Dyslipidemia (high LDL; low HDL): (8) Essential hypertension: (9) Thrombocytopenia: Plan Reason Critically Ill: 78-year-old female with past medical history: CVA with left-sided hemiparesis, hypothyroidism, hypertension, GERD, dyslipidemia was brought in by the EMS as she was found unresponsive on the floor. Patient was hypotensive and sent to the ICU for further management Neuro - [facility] ICU: Unable to assess --Metabolic encephalopathy Renal Elevated BUN CT head 10/18/2023:1.3 cm hypodense focus within the right cerebellar hemisphere, new since head CT of July 12, 2015. This represents a small interval age indeterminate infarct. No change in an old right [employer] territory infarct. TSH within normal limit Sedation with fentanyl Cardiac - --Shock Likely septic Continue with vasopressor support to keep MAP greater than 65 Continue with empiric antibiotics EKG 10/18/2023 1303: Normal sinus rhythm, left axis deviation,, no ST-T wave changes appreciated, QTc 469 -- History of hypertension On metoprolol and lisinopril at home Respiratory - -- VDRF For ventilatory support Continue with ventilatory support Keep RASS -1 Daily sedation holidays and SBT's SARS Cov, influenza A/B, RSV all negative on 10/18/2023 GI - -- Elevated alk phos Will order CT abdomen pelvis without contrast RENAL/LYTES - -- TOMAS Follow-up urine lites Monitor BUN/creatinine Avoid nephrotoxic medications Strict ins and outs -- HAGMA Delta-delta: 1 Likely sec to lactic acidosis with possible ketoacidosis Follow up serum osm, urine osm, urine lytes Monitor - Continue with Watkins catheter ENDO - -- Elevated sugar Likely patient in DKA Continue with insulin drip until anion gap closes Decreasing blood glucose no more than 100 in an hour Replace potassium IV when potassium level between 3.3-5.3 BMP every 4 hours Continue with IV fluids --Hypothyroidism On levothyroxine at home TSH 4.49, within normal HEME - -- Severe thrombocytopenia Etiology not clear Sepsis is a possibility Will order peripheral smear --Normocytic anemia Give hemoglobin greater than 7, Transfuse as needed ID - -- Multiple source of infection Cellulitis of the left groin Possible UTI, follow-up UA Follow-up blood culture Continue with broad-spectrum antibiotic --Prophylaxis VTE: IPC GI:Protonix Lines: Right femoral, peripheral Diet: N.p.o. Plan: Continue with broad-spectrum antibiotics Will change cefepime to Zosyn. Follow-up nasal MRSA. Will give 1 dose of vancomycin. Follow-up urine lites. Follow-up CPK Give another 2 L of bolus of IV fluid. 3 A of bicarb given to the patient. Add vasopressin to Levophed. Patient's random cortisol was greater than 60. She already got 200 mg of hydrocortisone. No need for further hydrocortisone If the patient is more stabilized when it comes to her blood pressure then CT abdominal pelvis will be ordered. Patient is critically ill, prognosis is grave given the multiorgan failure that we are looking at. I have personally spent 68 minutes of critical care time in the direct management of this patient. This is a life/limb threatening event. This includes time spent evaluating patient, direct bedside care, chart review, placing orders, interpretation of diagnostic studies, discussion with consultants, patient, and family members, as well as other required patient management activities. This time is exclusive of all separately billable procedures, and teaching time and separate from and in addition to any other critical care service time. History of Present Illness Attending Physician: Rissa Adams, History of Present Illness 78-year-old female was brought in by the EMS as she was found unresponsive on the floor Past medical history: CVA with left-sided hemiparesis, hypothyroidism, hypertension, GERD, dyslipidemia Patient was transferred to the ICU where she was found to be hypotensive in the ED. Signout was given by Dr. Adams on the phone. Apparently in the ER, they were not able to get IV access. I was initially contacted none of the labs were in the system. When they did get IV access patient was given 3 L of IV fluids and started on Levophed Patient was agonal he breathing for approximately 30 minutes in the ED as per the nursing who wheeled the patient to the ICU. As soon as the patient arrived in the ICU 2 A of bicarb was given to her given the pH was like 7.16 earlier today. Patient was on 0.24 Levophed with systolic in the 60s and MAP in the mid-high 40s to low 50s She was agonally breathing Saturation was interestingly 95% on 2 L nasal cannula. She has gotten cefepime in the ED. Another bolus of 1 L was started, vasopressin was added and plan was made to intubate the patient followed by central line placement Allergies Allergy/AdvReac Type Severity Reaction Status Date / Time No Known Allergies Allergy Unknown NONE Unverified 02/03/18 15:50 Home Medications Medication Instructions Recorded Confirmed Type ergocalciferol (vitamin D2) 1,000 2,000 unit PO DAILY ##0 01/12/13 10/18/23 History unit capsule aspirin 81 mg tablet 81 mg PO DAILY ##0 06/07/13 10/18/23 History atorvastatin 20 mg tablet 20 mg PO DAILY 10/18/23 10/18/23 History empagliflozin 25 mg tablet 25 mg PO QAM 10/18/23 10/18/23 History (Jardiance) famotidine 40 mg tablet 40 mg PO QAM 10/18/23 10/18/23 History glipizide 5 mg tablet 10 mg PO DAILY 10/18/23 10/18/23 History hydralazine 25 mg tablet 25 mg PO TID 10/18/23 10/18/23 History levothyroxine 175 mcg tablet 218.75 mcg PO DAILY 10/18/23 10/18/23 History linagliptin 5 mg tablet (Tradjenta) 5 mg PO QAM 10/18/23 10/18/23 History lisinopril 2.5 mg tablet 2.5 mg PO QAM 10/18/23 10/18/23 History metformin 500 mg tablet,extended 1,000 mg PO BID 10/18/23 10/18/23 History release 24 hr metoprolol tartrate 50 mg tablet 50 mg PO BID 10/18/23 10/18/23 History potassium chloride 10 mEq 10 meq PO BID 10/18/23 10/18/23 History tablet,extended release(part/cryst) (ChantalCon M) Patient History Medical History Depression GERD (gastroesophageal reflux disease) Hemiparesis affecting left side as late effect of cerebrovascular accident (CVA) Dyslipidemia (high LDL; low HDL) Vitamin D deficiency Essential hypertension Diabetes mellitus Headache Contusion of finger of right hand Hypothyroidism Paralytic stroke (01/12/13) Surgical History History of laparoscopic cholecystectomy (06/07/13) History of total hysterectomy with bilateral salpingo-oophorectomy (BSO) Social History (Updated 10/18/23 @ 13:43 by Neva Moreland MD) Smoking Status: Unknown if ever smoked Current Living Situation: Family Current Living Situation Comment: lives w family Review of Systems 2 Review of Systems: Unobtainable due to mental health condition, Unobtainable due to cognitive status and Unobtainable due to reduced consciousness Physical Exam 2 Physical Exam: Constitutional: Agonal breathing HEENT: PERRLA, sluggish response Respiratory system: Decreased air entry bilaterally, no wheeze, no rhonchi, positive crackles bilateral lower lobe CVS: S1-S2 positive Abdomen: Soft, nontender, nondistended, decreased bowel sounds Extremities: Weak pulses bilaterally radialis/ dorsalis pedis, no cyanosis, no edema Neuro: Agonal breathing, not responding to pain. Psych: Unable to assess G/U: Positive Watkins Skin: Desquamating rash appreciated in the left groin going into the left buttock and the lower back Lymphatic: no cervical or axillary lymphadenopathy Results & Data Results & Data Vital Signs (Past 12 Hours) Vital Signs Temp Pulse Pulse Resp BP Pulse Ox O2 Del Method 10/18/23 14:51 33.8 C L 83 16 95 10/18/23 14:51 75/38 L 10/18/23 14:50 33.8 C L 83 12 10/18/23 14:46 33.8 C L 79 15 92 10/18/23 14:46 62/30 L 10/18/23 14:45 33.8 C L 82 13 93 10/18/23 14:43 62/26 L 10/18/23 14:43 33.8 C L 83 15 97 10/18/23 14:42 57/24 L 10/18/23 14:42 33.8 C L 83 14 97 10/18/23 14:40 33.8 C L 84 16 96 10/18/23 14:35 33.7 C L 86 15 100 10/18/23 14:30 33.7 C L 88 19 100 10/18/23 14:26 33.6 C L 89 16 99 10/18/23 14:26 86/29 L 10/18/23 14:25 33.6 C L 88 19 99 10/18/23 14:21 68/54 L 10/18/23 14:21 33.4 C L 85 15 100 10/18/23 14:20 33.4 C L 86 16 100 10/18/23 14:16 33.1 C L 86 14 100 10/18/23 14:16 71/41 L 10/18/23 14:15 33.0 C L 87 16 10/18/23 14:13 78/52 L 10/18/23 14:13 32.7 C L 88 16 10/18/23 14:11 32.3 C L 86 L 10/18/23 14:11 68/43 L 10/18/23 14:10 31.9 C L 84 13 76 L 10/18/23 14:09 75/49 L 10/18/23 14:09 31.4 C L 87 15 73 L 10/18/23 14:06 30.5 C L 93 H 28 H 86 L 10/18/23 14:06 87/48 L 10/18/23 14:05 24.0 C L 90 10 L 80 L 10/18/23 14:02 92/53 L 10/18/23 14:02 30.2 C L 94 H 17 83 L 10/18/23 14:01 22.6 C L 90 26 H 95 10/18/23 14:01 73/31 L 10/18/23 14:00 25.1 C L 87 16 91 10/18/23 13:58 32.2 C L 94 H 25 H 100 10/18/23 13:58 78/40 L 10/18/23 13:56 34.1 C L 87 19 97 10/18/23 13:56 72/41 L 10/18/23 13:55 34.0 C L 88 18 10/18/23 13:54 34.0 C L 88 17 10/18/23 13:54 70/45 L 10/18/23 13:51 34.0 C L 87 13 10/18/23 13:51 34 C L 89 22 10/18/23 13:42 33.4 C L 83 15 98 10/18/23 13:42 79/47 L 10/18/23 13:40 33.0 C L 94 H 4 L 90 10/18/23 13:39 32.8 C L 88 17 95 10/18/23 13:39 51/37 L 10/18/23 13:36 31.5 C L 88 18 93 10/18/23 13:36 85/33 L 10/18/23 13:35 30.6 C L 87 15 86 L 10/18/23 13:33 78/39 L 10/18/23 13:33 28.4 C L 88 21 95 10/18/23 13:31 78/39 L 10/18/23 13:31 93 H 25 H 97 10/18/23 13:30 89 18 10/18/23 13:27 78/48 L 10/18/23 13:27 88 22 98 10/18/23 13:26 71/25 L 10/18/23 13:26 93 H 16 97 10/18/23 13:25 95 H 22 96 10/18/23 13:22 91 H 26 H 98 10/18/23 13:22 78/22 L 10/18/23 13:20 89 21 97 10/18/23 13:18 75/43 L 10/18/23 13:18 90 24 95 10/18/23 13:15 88/47 L 10/18/23 13:12 35.2 C L 86 15 88/46 L 96 Nasal Cannula 10/18/23 13:00 89 O2 Flow Rate 10/18/23 14:51 10/18/23 14:51 10/18/23 14:50 10/18/23 14:46 10/18/23 14:46 10/18/23 14:45 10/18/23 14:43 10/18/23 14:43 10/18/23 14:42 10/18/23 14:42 10/18/23 14:40 10/18/23 14:35 10/18/23 14:30 10/18/23 14:26 10/18/23 14:26 10/18/23 14:25 10/18/23 14:21 10/18/23 14:21 10/18/23 14:20 10/18/23 14:16 10/18/23 14:16 10/18/23 14:15 10/18/23 14:13 10/18/23 14:13 10/18/23 14:11 10/18/23 14:11 10/18/23 14:10 10/18/23 14:09 10/18/23 14:09 10/18/23 14:06 10/18/23 14:06 10/18/23 14:05 10/18/23 14:02 10/18/23 14:02 10/18/23 14:01 10/18/23 14:01 10/18/23 14:00 10/18/23 13:58 10/18/23 13:58 10/18/23 13:56 10/18/23 13:56 10/18/23 13:55 10/18/23 13:54 10/18/23 13:54 10/18/23 13:51 10/18/23 13:51 10/18/23 13:42 10/18/23 13:42 10/18/23 13:40 10/18/23 13:39 10/18/23 13:39 10/18/23 13:36 10/18/23 13:36 10/18/23 13:35 10/18/23 13:33 10/18/23 13:33 10/18/23 13:31 10/18/23 13:31 10/18/23 13:30 10/18/23 13:27 10/18/23 13:27 10/18/23 13:26 10/18/23 13:26 10/18/23 13:25 10/18/23 13:22 10/18/23 13:22 10/18/23 13:20 10/18/23 13:18 10/18/23 13:18 10/18/23 13:15 10/18/23 13:12 2 10/18/23 13:00 Laboratory Results 10/18/23 14:42 10/18/23 14:42 Coding Level of Care Code 27048 CRITICAL CARE 1ST 30-74M Diagnoses Shock circulatory R57.9 DKA (diabetic ketoacidosis) E11.11 Diabetes mellitus complication detail: with coma Diabetes mellitus type: type 2 Sepsis A41.9; R65.21; N17.9 Acute renal failure type: unspecified Sepsis acute organ dysfunction status: with acute organ dysfunction Sepsis type: sepsis due to unspecified organism Severe sepsis acute organ dysfunction type: acute renal failure Severe sepsis shock status: with septic shock Acute renal failure N17.9 High anion gap metabolic acidosis E87.29 Paralytic stroke I63.9 Dyslipidemia (high LDL; low HDL) E78.5 Essential hypertension I10 Thrombocytopenia D69.6 (2) DKA (diabetic ketoacidosis) Diabetes mellitus complication detail: with coma Diabetes mellitus type: type 2 Qualified Code(s): E11.11 - Type 2 diabetes mellitus with ketoacidosis with coma (3) Sepsis Acute renal failure type: unspecified Sepsis acute organ dysfunction status: with acute organ dysfunction Sepsis type: sepsis due to unspecified organism S evere sepsis acute organ dysfunction type: acute renal failure Severe sepsis shock status: with septic shock Qualified Code(s): A41.9 - Sepsis, unspecified organism; R65.21 - Severe sepsis with septic shock; N17.9 - Acute kidney failure, unspecified
[2023-10-18 16:32] LABS: INR 1.1 (0.9-1.1); Partial Thromboplastin Ratio 1.4; Partial Thromboplastin Time 40 Seconds (21-31); Prothrombin Time 11.9 Seconds (9.0-12.0)
--- NOTE | 2023-10-18 16:33 | Procedure Note ---
Procedure Note Date of Service October 18, 2023 Note INTUBATION PROCEDURE NOTE: Attending: Dr Edwar Covington MD Patient was evaluated and plan to intubate was made for agonal breathing. Sedative agent used: 100 mg lidocaine, 15 mg of etomidate Paralysis agent used: None Emergent consent was implied given patients rapidly declining clinical status and need for airway protection. The patient was prepared in the appropriate fashion. The patient was easily pre-oxygenated by using [id number] ventilation. With help of glide scope grade 2 vocal cords were visualized and 7.5 Syriac ETT was introduced on first attempt to 23 cm at the lip. The stylette was removed and balloon was inflated with 10mL of air. Appropriate Colorimetric change was appreciated for at least 10 breaths. Bilateral chest rise and breath sounds were appreciated without air sounds in the epigastrium. Patient tolerated the procedure well and there were no immediate complications. Chest Xray to follow for confirming placement. Coding CPT Codes Resuscitation - Resuscitation: 70967 Endotracheal Intubation, emergency ([id number]) [facility] [place] Codes (Charges) Resuscitation Resuscitation: 65469 Endotracheal Intubation, emergency
--- NOTE | 2023-10-18 16:36 | Procedure Note ---
Procedure Note Date of Service October 18, 2023 Note Procedure: Inserting ultrasound-guided central millinery department manager: Dr. Edwar Covington Indication: Hypotension Consent: Emergent consent was applied Anesthesia: 1% lidocaine without epinephrine local. Procedure: Consent was verified and timeout performed. Appropriate imaging studies were reviewed prior to the procedure. Under aseptic and sterile condition, right femoral vein was accessed under direct ultrasound guidance. Guidewire was confirmed to be within the lumen of vein with the help of ultrasound. Catheter was introduced via Seldinger technique. Guide a wire was removed. Good non-pulsatile blood flow was appreciated from all the ports. The catheter was placed at 24 cm and sut[address] in place. BioPatch was applied to the catheter and a sterile Tegaderm dressing was applied over the catheter with careful attention to sterility. Patient tolerated the procedure well. Blood loss: Less than 2 cc Complications: None Coding CPT Codes Tubes, Drains, and Vasc Access - Tubes, Drains, and Vasc Access: [id number] Place catheter in vein superior or inferior vena cava ([id number]) Tubes, Drains, and Vasc Access - Tubes, Drains, and Vasc Access: [id number] Ultrasound Guidance For Vascular ([id number]) [facility] [place] Procedure Codes (Charges) Tubes, Drains, and Vasc Access Procedure 1: Tubes, Drains, and Vasc Access: [id number] Place catheter in vein superior or inferior vena cava Procedure 2: Tubes, Drains, and Vasc Access: [id number] Ultrasound Guidance For Vascular
[2023-10-18] MEDS: VASOPRESSIN 20 UNITS in 0.9 % SODIUM CHLORIDE 100 ML IV SCH (16:41)
[2023-10-18] MEDS: VANCOMYCIN HCL 1,500 MG in SODIUM CHLORIDE 0.9% 500 ML IV STA (16:42)
[2023-10-18] MEDS: SODIUM BICARB 8.4% INJ 50 MEQ/50 ML SYR IV ONE ×3 (16:42→21:49)
[2023-10-18] MEDS: HHS GOAL RANGE 250-350 mg/dl ONE (16:43)
[2023-10-18] MEDS: STAT IV Infusion **Titration per Protocol STA (16:43)
[2023-10-18] MEDS: RAPID SEQUENCE INDUCTION BAG ONE (16:43)
[2023-10-18] MEDS: INSULIN ASPART PER UNIT CHARGE SC SCH ×2 (16:44→21:47)
[2023-10-18] MEDS ORDERED: fentaNYL BOLUS from BAG IV PRN (16:54)
[2023-10-18] MEDS ORDERED: NOREPINEPHRINE/D5W 4 MG/250 ML PLCT IV SCH (17:00)
[2023-10-18] MEDS ORDERED: VASOPRESSIN 20 UNITS in 0.9 % SODIUM CHLORIDE 100 ML IV SCH (17:00)
[2023-10-18] MEDS ORDERED: STAT IV/IM STA (17:06)
[2023-10-18 17:09] LABS: Appearance Urine Turbid (Clear); Bacteria Urine Automated 2+ (Negative); Blood Urine 3+ (Negative); Color Urine Orange; Epithelial Cell Urine Auto >30 /lpf (0-5); Glucose Urine UA 2+ (Negative); Ketones Urine Trace (Negative); Leukocyte Esterase Urine 2+ (Negative); Nitrite Urine Negative (Negative); Protein Urine 3+ (Negative); Specific Gravity Urine 1.022 (1.000-1.030); Urobilinogen Urine Negative (Negative); WBC Urine Automated >30 /hpf (0-5)
[2023-10-18 17:12] LABS: Bilirubin Urine 2+ (Negative)
[2023-10-18 17:12] LABS: Hematocrit (blood only) 30.8 % (37.0-47.0); Hemoglobin 9.8 g/dl (12.0-16.0); Mean Corpuscular Hemoglobin 25.7 pg (25.0-34.0); Mean Corpuscular Hgb Conc 31.8 g/dL (32.0-36.0); Mean Corpuscular Volume 80.6 fL (80.0-100.0); Platelet Count 6 K/uL (130-400); RDW Standard Deviation 52.8 fL (36.4-46.3); Red Blood Count 3.82 M/uL (4.20-5.40); White Blood Count 34.77 K/ul (4.8-10.8)
[2023-10-18] MEDS: fentaNYL citrate 2,500 MCG/250 ML BAG IV SCH (17:13)
[2023-10-18 17:18] LABS: iSTAT Allen Test Pass; iSTAT Art Bld Gas pCO2 Correct 30 mmHg (35-46); iSTAT Art Bld Gas pH Corrected 7.109 (7.35-7.45); iSTAT Arterial Blood Gas HCO3 10 meg/L (19-24); iSTAT Arterial Blood Gas pCO2 33 mmHg (35-46); iSTAT Arterial Blood Gas pH 7.08 (7.35-7.45); iSTAT Arterial Blood Gas pO2 165 mmHg (80-95); iSTAT Arterial Blood Gas pO2 C 152; iSTAT Carbon Dioxide 11 mmol/L (24-31); iSTAT FiO2 80 %; iSTAT Hematocrit 35 % (37-47); iSTAT Hemoglobin 11.9 g/dl (12.0-16.0); iSTAT Potassium 2.3 mmol/L (3.3-5.0); iSTAT Site L Radial; iSTAT Sodium 137 mmol/L (135-144)
[2023-10-18 17:26] LABS: Albumin Globulin Ratio 0.7 (0.9-2); Albumin Level 1.5 gm/dl (3.4-5.0); BUN Creatinine Ratio 45.8 (10-20); Bilirubin,Total 0.9 mg/dl (0.2-1.0); Calcium 7.7 mg/dl (8.6-10.3); Creatinine Clr Calc Pharmacy 18.2 ml/min; Est GFR (African American) 23.4 ml/min; Est GFR (Non-African American) 20.2 ml/min; Globulin 2.1 gm/dl (2.5-4.0); Magnesium 1.4 mg/dl (1.7-2.4); Phosphorus 3.1 mg/dl (2.5-4.9); Potassium 2.5 mmol/L (3.5-5.1); Total Protein 3.6 gm/dl (6.0-8.3)
[2023-10-18 17:27] LABS: Cast Urine Automated 0 /lpf (0-5)
[2023-10-18 17:27] LABS: Acetaminophen < 3 ug/ml (10-30); Salicylate < 3.0 mg/dl (3.0-30)
[2023-10-18 17:30] LABS: Fibrinogen 467 mg/dl (184-400)
[2023-10-18 17:41] LABS: Potassium Random Urine 30.4 mmol/L
[2023-10-18 17:44] LABS: Amphetamines+Metham, Urine Neg (Neg); Barbiturates, Urine Neg (Neg); Benzodiazepine, Urine Neg (Neg); Cocaine, Urine Neg (Neg); MDMA (Ecstacy), Urine Neg (Neg); Marijuana, Urine Neg (Neg); Methadone, Urine Neg (Neg); Opiate, Urine Neg (Neg); Phencyclidine, Urine Neg (Neg)
[2023-10-18 17:46] LABS: ALC (manual) 1.39 K/uL (1.2-3.4); ANC (manual) 29.21 K/uL (1.4-6.5); Dohle Bodies 1+; Echinocytes 3+; Lymphocytes # (manual) 1.39 K/uL (1.2-3.4); Lymphocytes % (manual) 4 %; Metamyelocytes # (manual) 3.82 K/uL (0-0); Metamyelocytes % (manual) 11 %; Monocytes # (manual) 0.35 K/uL (0.11-0.59); Monocytes % (manual) 1 %; Neutrophils # (manual) 29.21 K/uL (1.40-6.50); Neutrophils % (manual) 84 %; Polychromasia 1+; Toxic Granulation 1+; Toxic Vacuolation 1+
[2023-10-18] MEDS: SODIUM BICARBONATE 8.4% 75 MEQ in SODIUM CHLORIDE 0.45 % 1,000 ML IV SCH (17:47)
[2023-10-18 17:49] LABS: Creatinine Urine Random 74.1 mg/dl
[2023-10-18] MEDS: POTASSIUM CHLORIDE / WTR 20 MEQ/100 ML PLCT IV SCH (17:50)
[2023-10-18] MEDS ORDERED: PHARMACY GLYCEMIC MGMT CONSULT PRN (18:08)
[2023-10-18] MEDS ORDERED: PENDING D5 1/2NS+40mEq KCL IVF SCH (18:15)
[2023-10-18] MEDS ORDERED: INSULIN REGULAR 250 UNITS in SODIUM CHLORIDE 0.9% 247.5 ML IV SCH (18:15)
[2023-10-18] MEDS ORDERED: THIAMINE HCL 500 MG in SODIUM CHLORIDE 0.9% 50 ML IV STA (18:24)
[2023-10-18] MEDS ORDERED: PROPOFOL BOLUS FROM BAG IV PRN (18:24)
[2023-10-18] MEDS: MIDAZOLAM HCL 5 MG/ML 2ML VIAL IV STA (18:51)
[2023-10-18] MEDS: propofoL 1,000 MG/100 ML VIAL IV SCH (18:52)
[2023-10-18] MEDS ORDERED: Nursing to Pharmacy Communication SCH ×2 (19:00)
[2023-10-18] MEDS: LACTATED RINGER'S 500 ML IV ONE ×2 (19:00→21:30)
--- NOTE | 2023-10-18 19:04 | Procedure Note ---
Procedure Note Date of Service October 18, 2023 Note ARTERIAL LINE PROCEDURE NOTE: Procedure: Arterial Line Placement Proceduralist: Dagoberto RICE ([facility] Attending: Dr. Covington Indication: Monitoring on Pressors Anesthesia: [x]None Emergent consent was implied as patient is on multiple high dose vasopressors, intubated and remains full code. Benefits at this time outweigh the risks. A time-out was completed verifying correct patient, procedure, site, positioning, Allens test was performed to ensure adequate perfusion. Patients LEFT wrist was prepped and draped in the usual sterile fashion. Ultrasound guidance was used to aid needle placement. A 20g Arrow arterial line was introduced into the LEFT RADIAL artery x2 attempts. Initially with brisk blood return but unable to maintain flow and re-wire the catehter. A second approach was taken, noting brisk blood return, the wire was advanced without resistance and the Catheter was threaded. The needle was removed with appropriate blood return, pressure tubing was attached noting adequate arterial waveform. The patient tolerated the procedure well. Blood Loss: Minimal Complications: None immediate Artery Identified: YES Line confirmed in Artery with ultrasound: YES Complications: NONE Patient tolerated procedure: WELL Images NOT saved to permanent record as this was urgent/emergent need. Coding CPT Codes Tubes, Drains, and Vasc Access - Tubes, Drains, and Vasc Access: [id number] Arterial Cath/Cannulation Sampling/Monitoring/Transfusion ([id number]) [facility] [place] Procedure Codes (Charges) Tubes, Drains, and Vasc Access Procedure 1: Tubes, Drains, and Vasc Access: [id number] Arterial Cath/Cannulation Sampling/Monitoring/Transfusion
[2023-10-18] MEDS: SODIUM BICARB 8.4% INJ 50 MEQ/50 ML SYR IV STA ×3 (19:14→20:53)
--- NOTE | 2023-10-18 19:22 | Communication Note ---
Date of Service: October 18, 2023 1845- Called to bedside for concern for "roving eye movement" and continued hypotension. On assessment patient was with noted ophthalmoplegia noted as horizontal nystagmus 3 beats and then back to midline and then to other side with 3 beats nystagmus and associated twitching of face. She was given 3mg of Versed which broke her lateral movements and nystagmus. She will be initiated on propofol infusion as well as given high dose Thiamine. She also remains refractory hypotensive while on Levophed 0.5mcg/kg/min and Vasopressin 0.04 units/min. Will provide more crystalloid as well as another dose of HCO3 as her acidosis is likely driving the poor response to vasopressor therapy. She remains gravely ill from severe shock with likely combination of sepsis and hypovolemia secondary to DKA with multiorgan failure. - Her source of infection is likely urine as well from her groin as STI- - When patient is stable will obtain advanced imaging of abdomen and pelvis. - Will consult surgery for concern of Nec Fasc/Alpa - She is also with what is also likely a deep tissue/pressure injury on her left hip and flank as this was likely the side she was found down on - will place an arterial line for continuous hemodynamic monitoring and frequent blood draws. There is no immediate family available at the bedside and patient remains full code. Her ophthalmoplegias are multifocal etiologies at this time: Metabolic Encephalopathy vs anoxia vs Wernicke (poor nutritional intake)vs Subacute cerebellar infract and/or seizure or combination of these - EEG in morning - Propofol at 30-35mcg/kg/min- will add Keppra if more seizure like activity presents Case discussed with Dr. Covington prior to. 2019- Was able to get in touch with the son Sidney- We discussed her grave prognosis at this time as she is still requiring multiple doses of HCO3 to keep her PH up to provide an environment for her vasopressors to work. We discussed the multiorgan failure that she is currently in. We also discussed that if she were to arrest that bringing her back in this current situation is very unlikely as she is already on multiple vasopressor agents. He is unable to come back to the hospital tonight because he does not have a ride. He would like to continue full care until he can see her in the morning, however would like to make her DNR. We also discussed concerns from where her sepsis is coming from - with concerns to groin with worst case nec fasc/Alpa and to obtain source control at this time would be extensive surgery with de-lily large area until healthy tissue is found leaving her with large wound and in her baseline debilitation that she is unlikely to recover from as well as she would likely not survive the initial surgery. As at this time she is too unstable to take to the operating room. Case was also discussed with Dr. Sidra Govea from general surgery and her initial impressions are also reflected above per our discussion, with full consult to follow in morning, as patient is currently too unstable at this time. 2114- CT scan returns interpreting "soft tissues as unremarkable" and noting of mild right hydronephrosis and hydroureter with faint density 5mm distal right ureter, as above she needs to be much more stable from a hemodyanmic standpoint at this time. Will consult urology for evaluation of this density as well as related to her hydro and complicated UTI. - I discussed the above with kameron Little and re-iterated again his mother's current state. She is now requiring a 3rd vasopressor agent to maintain blood pressure. As above we discussed that her surviving a cardiac arrest at this time is very unlikely as she is currently on an epinephrine infusion, Levophed infusion, vasopressin infusion. He stated that he would like to see her alive in the morning, however did not want her to be in pain or suffer. We discussed that CPR and Shocking her at this time would likely cause both of those. He agreed to make Michelle a DNR in the event of a cardiac arrest. he understands that we will continue to provide full support and interventions as we are able based on her instability. Discussion was witnessed and confirmed on phone with kameron Little by Laura Cortes- BRAYAN/Nursing prepress supervisor. - CODE STATUS- DNR Dagoberto RICE (ACNP-) Please add an additional 30 minutes of critical care time See separate procedure note for arterial line placement
[2023-10-18] MEDS: THIAMINE HCL 500 MG in SODIUM CHLORIDE 0.9% 50 ML IV SCH (19:28)
[2023-10-18 19:44] LABS: BUN Creatinine Ratio 44.1 (10-20); Calcium 8.3 mg/dl (8.6-10.3); Est GFR (African American) 23.1 ml/min; Est GFR (Non-African American) 19.9 ml/min; Phosphorus 4.1 mg/dl (2.5-4.9); Potassium 3.2 mmol/L (3.5-5.1)
[2023-10-18] MEDS: MAGNESIUM SULFATE / D5W 1 GM/100 ML BAG IV SCH (19:57)
[2023-10-18] MEDS: OPTIRAY 320 500ml IV ONE (20:16)
[2023-10-18] MEDS: LACTATED RINGER'S 1,000 ML IV SCH (20:30)
--- NOTE | 2023-10-18 21:06 | CT Scan Report ---
Exam(s): CT ABDOMEN + PELVIS With Contrast IV Amt: 83 ml optiray 320 EXAM: CT Abdomen and Pelvis With Intravenous Contrast CLINICAL HISTORY: Reason for exam: eval for infective process- eval deep tissue groin. TECHNIQUE: Axial computed tomography images of the abdomen and pelvis with intravenous contrast. CTDI is 34.25 mGy and DLP is 1876.56 mGy-cm. Automated exposure control was utilized for the study. A dose lowering technique was utilized adhering to the principles of ALARA. CONTRAST: Patient received 83 ml optiray 320 of IV contrast COMPARISON: December 30, 2010 FINDINGS: Lung bases: See below. Pleural space: Trace right pleural effusion measuring 1.7 cm posteriorly. There is mild bibasilar atelectasis versus pneumonia, greater on the right than the left. ABDOMEN: Liver: Unremarkable. No mass. Gallbladder and bile ducts: Previous cholecystectomy. No biliary duct dilation is seen. Pancreas: Unremarkable. No mass. No ductal dilation. Spleen: Unremarkable. No splenomegaly. Adrenals: Unremarkable. No mass. Kidneys and ureters: Mild right hydronephrosis and hydroureter. There is a faint density measuring approximately 5 mm in the distal right ureter which is suspicious for a ureteral calculus versus inspissated debris. Stomach and bowel: Bowel loops are nondilated. There is mild diffuse wall thickening throughout the colon suggesting colitis. No pneumoperitoneum, free fluid, or abscess is seen. PELVIS: Appendix: No findings to suggest acute appendicitis. Bladder: The urinary bladder is decompressed by Watkins catheter. Reproductive: Unremarkable as visualized. ABDOMEN and PELVIS: Intraperitoneal space: The uterus has been removed. No free fluid is seen in the pelvis. Bones/joints: Mild osteoarthritic changes of both hips. No acute fracture or dislocation is seen. Mild to moderate degenerative changes throughout the spine. No acute fracture or subluxation is seen. Soft tissues: Unremarkable. Vasculature: Unremarkable. No abdominal aortic aneurysm. Lymph nodes: Unremarkable. No enlarged lymph nodes. Tubes, lines and devices: There is a central venous catheter in the right common femoral vein extending to the right external iliac vein. IMPRESSION: 1. Trace right pleural effusion measuring 1.7 cm posteriorly. There is mild bibasilar atelectasis versus pneumonia, greater on the right than the left. 2. Mild right hydronephrosis and hydroureter. There is a faint density measuring approximately 5 mm in the distal right ureter which is suspicious for a ureteral calculus versus inspissated debris. 3. Bowel loops are nondilated. There is mild diffuse wall thickening throughout the colon suggesting colitis. No pneumoperitoneum, free fluid, or abscess is seen. Electronically signed by: Anatoliy Alfonso MD 10/18/23 21:06 PM
[2023-10-18] MEDS: MAX Conc; 32mg in 250mL IV SCH (21:12)
[2023-10-18 21:25] LABS: iSTAT Art Bld Gas pCO2 Correct 34 mmHg (35-46); iSTAT Art Bld Gas pH Corrected 7.259 (7.35-7.45); iSTAT Arterial Blood Gas HCO3 16 meg/L (19-24); iSTAT Arterial Blood Gas pCO2 36 mmHg (35-46); iSTAT Arterial Blood Gas pH 7.24 (7.35-7.45); iSTAT Arterial Blood Gas pO2 62 mmHg (80-95); iSTAT Arterial Blood Gas pO2 C 57; iSTAT Carbon Dioxide 17 mmol/L (24-31); iSTAT FiO2 70 %; iSTAT Hematocrit 32 % (37-47); iSTAT Hemoglobin 10.9 g/dl (12.0-16.0); iSTAT Potassium 2.3 mmol/L (3.3-5.0); iSTAT Site Art Line; iSTAT Sodium 141 mmol/L (135-144)
[2023-10-18] MEDS: EPINEPHrine/NSS 4 MG/254 ML BAG IV SCH (21:30)
[2023-10-18] MEDS: ALBUMIN 5% 250 ML IV ONE (21:36)
[2023-10-18] MEDS: PROPOFOL IV EMULSION 10 MG/ML 100 ML VIAL IV ONE (21:43)
[2023-10-18] MEDS: MIDAZOLAM HCL 5 MG/ML 2ML VIAL ONE (21:49)
[2023-10-18] MEDS ORDERED: HYDROCORTISONE SOD 50 MG in SYRINGE 0 ML IV SCH (22:00)
[2023-10-18 23:09] LABS: BUN Creatinine Ratio 46.1 (10-20); Calcium 7.8 mg/dl (8.6-10.3); Est GFR (African American) 26.3 ml/min; Est GFR (Non-African American) 22.7 ml/min; Phosphorus 2.6 mg/dl (2.5-4.9); Potassium 2.5 mmol/L (3.5-5.1)
[2023-10-18] MEDS ORDERED: POTASSIUM CHLORIDE / WTR 20 MEQ/100 ML PLCT IV SCH (23:15)
[2023-10-18] MEDS: LACTATED RINGER'S 1,000 ML IV ONE (23:30)
[2023-10-18] MEDS: ALBUMIN 25% 25 GM/100 ML VIAL IV ONE (23:32)
[2023-10-19] MEDS: POTASSIUM CHLORIDE / WTR 20 MEQ/100 ML PLCT IV SCH (00:42)
[2023-10-19 02:04] LABS: A calco-baum cmplx NotReported Not Detected (NotDetected); Bact fragilis Not Reported Not Detected (NotDetected); Blood Culture Id Panel See PCR Comment (NotDetected); C auris Not Reported Not Detected (NotDetected); CTX-M Resistant Gene Not Detected (NotDetected); Calbicans Not Reported Not Detected (NotDetected); Candida glabrata Not Reported Not Detected (NotDetected); Candida krusei Not Reported Not Detected (NotDetected); Cneoformans/gatti Not Reported Not Detected (NotDetected); Cparapsilosis Not Reported Not Detected (NotDetected); E cloacae compx Not Reported Not Detected (NotDetected); Efaecalis Not Reported Not Detected (NotDetected); Efaecium Not Reported Not Detected (NotDetected); Enterobacterales DETECTED (NotDetected); Enterobacterales Not Reported DETECTED (NotDetected); Escherichia coli Not Reported Not Detected (NotDetected); H influenzae Not Reported Not Detected (NotDetected); IMP Resistant Gene Not Detected (NotDetected); K aerogenes Not Reported Not Detected (NotDetected); KPC Resistant Gene Not Detected (NotDetected); Koxytoca Not Reported Not Detected (NotDetected); Kpneumoniae grp Not Reported Not Detected (NotDetected); Lmonocyt Not Reported Not Detected (NotDetected); N meningitidis Not Reported Not Detected (NotDetected); NDM Resistant Gene Not Detected (NotDetected); OXA 48 Like Resistant Gene Not Detected (NotDetected); P aeruginosa Not Reported Not Detected (NotDetected); Proteus spp Not Reported DETECTED (NotDetected); Salmonella spp Not Reported Not Detected (NotDetected); Smarcescens Not Reported Not Detected (NotDetected); Staph lugdunensis Not Reported Not Detected (NotDetected); Staph spp. Not Reported DETECTED (NotDetected); Staphaureus Not Reported Not Detected (NotDetected); Staphepi Not Reported Not Detected (NotDetected); Stenmaltophilia Not Reported Not Detected (NotDetected); Strep agal(GrpB) Not Reported Not Detected (NotDetected); Strep pneum Not Reported Not Detected (NotDetected); Strep pyog (GrpA) Not Reported Not Detected (NotDetected); Strep spp Not Reported Not Detected (NotDetected); VIM Resistant Gene Not Detected (NotDetected)
[2023-10-19 02:57] LABS: BUN Creatinine Ratio 48.7 (10-20); Creatinine Clr Calc Pharmacy 21.4 ml/min; Est GFR (African American) 28.4 ml/min; Est GFR (Non-African American) 24.5 ml/min; Phosphorus 1.9 mg/dl (2.5-4.9); Potassium 4.3 mmol/L (3.5-5.1)
[2023-10-19 03:06] LABS: Proteus species DETECTED (NotDetected); Staphylococcus spp. DETECTED (NotDetected)
[2023-10-19] MEDS ORDERED: POTASSIUM PHOS 3 MMOL/1 ML INFUSION IV STA (03:44)
[2023-10-19] MEDS: POTASSIUM PHOSPHATE 9 MMOL in SODIUM CHLORIDE 0.9% 250 ML IV ONE (04:03)
[2023-10-19] MEDS: ACETAMINOPHEN 1,000 MG/100 ML VIAL IV PRN (04:12)
[2023-10-19 04:24] LABS: iSTAT Art Bld Gas pCO2 Correct 33 mmHg (35-46); iSTAT Art Bld Gas pH Corrected 7.209 (7.35-7.45); iSTAT Arterial Blood Gas HCO3 13 meg/L (19-24); iSTAT Arterial Blood Gas pCO2 31 mmHg (35-46); iSTAT Arterial Blood Gas pH 7.22 (7.35-7.45); iSTAT Arterial Blood Gas pO2 73 mmHg (80-95); iSTAT Arterial Blood Gas pO2 C 78; iSTAT Carbon Dioxide 14 mmol/L (24-31); iSTAT FiO2 50 %; iSTAT Hematocrit 29 % (37-47); iSTAT Hemoglobin 9.9 g/dl (12.0-16.0); iSTAT Potassium 4.6 mmol/L (3.3-5.0); iSTAT Site Art Line; iSTAT Sodium 139 mmol/L (135-144)
--- NOTE | 2023-10-19 06:40 | XRay Report ---
XR chest 1V portable HISTORY: 78 years-old Female while intubated- eval lines, tubes, lung nino acute respiratory failu re COMPARISON: 10/18/2023 TECHNIQUE: AP view of the chest FINDINGS: Endotracheal tube overlies the midline, 1.7 cm superior to the stone. Enteric tube courses in the st omach with distal tip outside the [id number]. Unchanged cardiomediastinal and hilar silhouettes. No pneumothorax. Small right pleural effusion with progressive right lung consolidation which is most pronounced within the right lung base. Bones appe ar grossly intact. IMPRESSION: 1. Lines and tubes as above. 2. There is a new small right pleural effusion with progressive right basilar prominent airspace opac ities, possibly representing aspiration. ACT 112: Negative or not required by law. The above report was generated using voice recognition software. It may contain grammatical, syntax o r spelling errors. Electronically signed by: Efren Rodríguez M.D. 10/19/2023 6:39 AM
--- NOTE | 2023-10-19 07:02 | Electrocardiogram Report ---
Test Reason : Blood Pressure : / mmHG Vent. 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
[2023-10-19 07:08] LABS: Albumin Level 2.2 gm/dl (3.4-5.0); BUN Creatinine Ratio 50.5 (10-20); Bilirubin Direct 1.1 mg/dl (0-0.2); Bilirubin,Total 1.8 mg/dl (0.2-1.0); Creatinine Clr Calc Pharmacy 23.4 ml/min; Est GFR (African American) 30.1 ml/min; Phosphorus 2.5 mg/dl (2.5-4.9); Potassium 4.6 mmol/L (3.5-5.1); Total Protein 3.8 gm/dl (6.0-8.3)
[2023-10-19] MEDS: PNEUMOCOCCAL VACCINE (PCV20) 20-VAL CONJ-DIP CRM/PF 0.5 ML SYR IM ONE (07:28)
[2023-10-19] MEDS: INFLUENZA VACCINE HIGH-DOSE (HD-IIV4) PF 65+ 0.7mL SYR IM ONE (07:28)
[2023-10-19] MEDS: CEFEPIME 1,000 MG in SYRINGE 0 ML IV SCH (08:09)
[2023-10-19 08:19] LABS: Estimated Average Glucose 341 mg/dl; Hemoglobin A1C 13.5 % (4.5-5.6)
[2023-10-19] MEDS ORDERED: Nursing to Pharmacy Communication SCH (08:45)
--- NOTE | 2023-10-19 09:18 | Critical Care Progress Note ---
Date of Service October 19, 2023 Assessment & Plan (1) Shock circulatory: (2) DKA (diabetic ketoacidosis): (3) Sepsis: (4) Acute renal failure: (5) High anion gap metabolic acidosis: (6) Paralytic stroke: (7) Dyslipidemia (high LDL; low HDL): (8) Essential hypertension: (9) Thrombocytopenia: Plan Reason Critically Ill: 78-year-old female with past medical history: CVA with left-sided hemiparesis, hypothyroidism, hypertension, GERD, dyslipidemia was brought in by the EMS as she was found unresponsive on the floor. Patient was hypotensive and sent to the ICU for further management Neuro - [facility] ICU: Unable to assess --Metabolic encephalopathy Renal Elevated BUN CT head 10/18/2023:1.3 cm hypodense focus within the right cerebellar hemisphere, new since head CT of July 12, 2015. This represents a small interval age indeterminate infarct. No change in an old right [employer] territory infarct. TSH within normal limit Sedation with fentanyl Cardiac - --Shock Likely septic Continue with vasopressor support to keep MAP greater than 65 Continue with empiric antibiotics EKG 10/18/2023 1303: Normal sinus rhythm, left axis deviation,, no ST-T wave changes appreciated, QTc 469 -- History of hypertension On metoprolol and lisinopril at home Respiratory - -- VDRF For ventilatory support Continue with ventilatory support Keep RASS -1 Daily sedation holidays and SBT's SARS Cov, influenza A/B, RSV all negative on 10/18/2023 GI - -- Elevated alk phos Will order CT abdomen pelvis without contrast RENAL/LYTES - -- TOMAS Follow-up urine lites Monitor BUN/creatinine Avoid nephrotoxic medications Strict ins and outs -- HAGMA Delta-delta: 1 Likely sec to lactic acidosis with possible ketoacidosis Follow up serum osm, urine osm, urine lytes Monitor - Continue with Watkins catheter ENDO - -- Elevated sugar Likely patient in DKA Continue with insulin drip until anion gap closes Decreasing blood glucose no more than 100 in an hour Replace potassium IV when potassium level between 3.3-5.3 BMP every 4 hours Continue with IV fluids --Hypothyroidism On levothyroxine at home TSH 4.49, within normal HEME - -- Severe thrombocytopenia Etiology not clear Sepsis is a possibility Will order peripheral smear --Normocytic anemia Give hemoglobin greater than 7, Transfuse as needed ID - -- Multiple source of infection Cellulitis of the left groin Possible UTI, follow-up UA Follow-up blood culture Continue with broad-spectrum antibiotic --Prophylaxis VTE: IPC GI:Protonix Lines: Right femoral, peripheral Diet: N.p.o. Plan: Discussion with family, transition to comfort measures and terminal extubation Admission and Anticipated Discharge Date Admission Date: October 18, 2023 Supervising Physician Co-Signing Physician Notes I have personally spent 30 minutes of critical care time in the direct management of this patient. This is a life/limb threatening event. This includes time spent evaluating patient, direct bedside care, chart review, placing orders, interpretation of diagnostic studies, discussion with consultants, patient, and/or family members regarding treatment decisions, as well as other required patient management activities. This time is exclusive of all separately billable procedures, and teaching time and separate from and in addition to any other critical care service time. Subjective Overnight events have been documented and reviewed in signout. Attempting to have family come to bedside given severity of illness and poor prognosis, patient not responding to interventions Review of Systems Review of Systems: Unobtainable due to endotracheal tube Physical Exam Physical Exam: General: Sedated. nontoxic. Skin: Warm, dry, Head: Atraumatic Ears, nose, mouth and throat: airway obscured by endotracheal tube Cardiovascular: Normal peripheral perfusion Respiratory: Ventilator settings reviewed Gastrointestinal: Non distended Musculoskeletal: Macerated bilateral inguinal area, no crepitance, ecchymosis left lateral thigh Results & Data Results & Data Vital Signs (Past 12 Hours) Vital Signs Temp Pulse Resp BP Pulse Ox O2 Del Method FiO2 10/19/23 08:41 130 H 32 H 96 50 10/19/23 06:00 38.1 C H 124 H 28 H 113/80 94 Mechanical Vent 50 10/19/23 05:45 38.1 C H 125 H 29 H 96/65 L 92 Mechanical Vent 50 10/19/23 05:30 38.0 C H 121 H 28 H 129/58 L 94 Mechanical Vent 50 10/19/23 05:15 38.1 C H 122 H 28 H 114/73 94 Mechanical Vent 50 10/19/23 05:00 38.1 C H 124 H 33 H 111/58 L 98 Mechanical Vent 50 10/19/23 04:45 38.1 C H 122 H 28 H 135/70 92 Mechanical Vent 50 10/19/23 04:30 38.1 C H 122 H 31 H 104/70 95 Mechanical Vent 50 10/19/23 04:29 123 H 34 H 94 50 10/19/23 04:15 38.0 C H 121 H 28 H 145/73 H 95 Mechanical Vent 50 10/19/23 04:00 37.8 C H 123 H 27 H 82/70 L 93 Mechanical Vent 50 10/19/23 04:00 50 10/19/23 03:45 37.4 C 124 H 26 H 118/62 93 Mechanical Vent 50 10/19/23 03:30 36.3 C L 120 H 26 H 124/61 93 Mechanical Vent 50 10/19/23 03:15 37.6 C H 122 H 34 H 86/70 L 96 Mechanical Vent 50 10/19/23 03:00 37.5 C 122 H 33 H 138/83 95 Mechanical Vent 50 10/19/23 02:45 37.5 C 122 H 29 H 114/83 95 Mechanical Vent 50 10/19/23 02:30 37.4 C 124 H 28 H 142/81 H 97 Mechanical Vent 60 10/19/23 02:15 37.3 C 121 H 26 H 118/71 96 Mechanical Vent 60 10/19/23 02:00 37.1 C 119 H 26 H 86/69 L 97 Mechanical Vent 60 10/19/23 01:45 37.0 C 119 H 29 H 89/59 L 96 Mechanical Vent 60 10/19/23 01:30 36.8 C 117 H 26 H 100/71 96 Mechanical Vent 60 10/19/23 01:15 36.4 C L 119 H 27 H 139/60 96 Mechanical Vent 60 10/19/23 01:00 36.7 C 123 H 26 H 138/56 L 95 Mechanical Vent 60 10/19/23 00:45 36.6 C 113 H 26 H 137/84 94 Mechanical Vent 60 10/19/23 00:30 36.6 C 116 H 26 H 148/98 H 96 Mechanical Vent 60 10/19/23 00:15 36.6 C 118 H 27 H 152/64 H 100 Mechanical Vent 80 10/19/23 00:12 119 H 32 H 96 90 10/19/23 00:00 36.6 C 115 H 26 H 148/75 H 100 Mechanical Vent 80 10/19/23 00:00 60 10/19/23 00:00 125 H 10/18/23 23:45 36.6 C 112 H 27 H 131/60 100 Mechanical Vent 80 10/18/23 23:30 36.5 C 124 H 29 H 94/51 L 98 Mechanical Vent 80 10/18/23 23:15 36.3 C L 123 H 28 H 106/55 L 97 Mechanical Vent 80 10/18/23 23:00 36.2 C L 125 H 30 H 118/67 98 Mechanical Vent 80 10/18/23 22:45 36.0 C L 109 H 26 H 127/69 99 Mechanical Vent 80 10/18/23 22:30 36.0 C L 117 H 26 H 96/60 L 99 Mechanical Vent 90 10/18/23 22:15 35.9 C L 121 H 27 H 131/98 99 Mechanical Vent 90 10/18/23 22:00 35.9 C L 117 H 26 H 153/51 H 99 Mechanical Vent 90 10/18/23 21:45 35.9 C L 121 H 26 H 122/53 L 97 Mechanical Vent 90 10/18/23 21:33 35.8 C L 121 H 26 H 96/48 L 96 Mechanical Vent 90 10/18/23 21:30 35.8 C L 130 H 27 H 148/67 H 92 Mechanical Vent 90 Critical Care Results & Data Vital Signs (Past 12 Hours) Vital Signs Temp Pulse Resp BP Pulse Ox O2 Del Method FiO2 10/19/23 08:41 130 H 32 H 96 50 10/19/23 06:00 38.1 C H 124 H 28 H 113/80 94 Mechanical Vent 50 10/19/23 05:45 38.1 C H 125 H 29 H 96/65 L 92 Mechanical Vent 50 10/19/23 05:30 38.0 C H 121 H 28 H 129/58 L 94 Mechanical Vent 50 10/19/23 05:15 38.1 C H 122 H 28 H 114/73 94 Mechanical Vent 50 10/19/23 05:00 38.1 C H 124 H 33 H 111/58 L 98 Mechanical Vent 50 10/19/23 04:45 38.1 C H 122 H 28 H 135/70 92 Mechanical Vent 50 10/19/23 04:30 38.1 C H 122 H 31 H 104/70 95 Mechanical Vent 50 10/19/23 04:29 123 H 34 H 94 50 10/19/23 04:15 38.0 C H 121 H 28 H 145/73 H 95 Mechanical Vent 50 10/19/23 04:00 37.8 C H 123 H 27 H 82/70 L 93 Mechanical Vent 50 10/19/23 04:00 50 10/19/23 03:45 37.4 C 124 H 26 H 118/62 93 Mechanical Vent 50 10/19/23 03:30 36.3 C L 120 H 26 H 124/61 93 Mechanical Vent 50 10/19/23 03:15 37.6 C H 122 H 34 H 86/70 L 96 Mechanical Vent 50 10/19/23 03:00 37.5 C 122 H 33 H 138/83 95 Mechanical Vent 50 10/19/23 02:45 37.5 C 122 H 29 H 114/83 95 Mechanical Vent 50 10/19/23 02:30 37.4 C 124 H 28 H 142/81 H 97 Mechanical Vent 60 10/19/23 02:15 37.3 C 121 H 26 H 118/71 96 Mechanical Vent 60 10/19/23 02:00 37.1 C 119 H 26 H 86/69 L 97 Mechanical Vent 60 10/19/23 01:45 37.0 C 119 H 29 H 89/59 L 96 Mechanical Vent 60 10/19/23 01:30 36.8 C 117 H 26 H 100/71 96 Mechanical Vent 60 10/19/23 01:15 36.4 C L 119 H 27 H 139/60 96 Mechanical Vent 60 10/19/23 01:00 36.7 C 123 H 26 H 138/56 L 95 Mechanical Vent 60 10/19/23 00:45 36.6 C 113 H 26 H 137/84 94 Mechanical Vent 60 10/19/23 00:30 36.6 C 116 H 26 H 148/98 H 96 Mechanical Vent 60 10/19/23 00:15 36.6 C 118 H 27 H 152/64 H 100 Mechanical Vent 80 10/19/23 00:12 119 H 32 H 96 90 10/19/23 00:00 36.6 C 115 H 26 H 148/75 H 100 Mechanical Vent 80 10/19/23 00:00 60 10/19/23 00:00 125 H 10/18/23 23:45 36.6 C 112 H 27 H 131/60 100 Mechanical Vent 80 10/18/23 23:30 36.5 C 124 H 29 H 94/51 L 98 Mechanical Vent 80 10/18/23 23:15 36.3 C L 123 H 28 H 106/55 L 97 Mechanical Vent 80 10/18/23 23:00 36.2 C L 125 H 30 H 118/67 98 Mechanical Vent 80 10/18/23 22:45 36.0 C L 109 H 26 H 127/69 99 Mechanical Vent 80 10/18/23 22:30 36.0 C L 117 H 26 H 96/60 L 99 Mechanical Vent 90 10/18/23 22:15 35.9 C L 121 H 27 H 131/98 99 Mechanical Vent 90 10/18/23 22:00 35.9 C L 117 H 26 H 153/51 H 99 Mechanical Vent 90 10/18/23 21:45 35.9 C L 121 H 26 H 122/53 L 97 Mechanical Vent 90 10/18/23 21:33 35.8 C L 121 H 26 H 96/48 L 96 Mechanical Vent 90 10/18/23 21:30 35.8 C L 130 H 27 H 148/67 H 92 Mechanical Vent 90 Lab & Micro Results (Past 24 Hours) RBC 3.82 M/uL (4.20-5.40) L 10/18/23 WBC 34.77 K/ul (4.8-10.8) H* 10/18/23 Hgb 9.8 g/dl (12.0-16.0) L 10/18/23 Hct 30.8 % (37.0-47.0) L 10/18/23 MCV 80.6 fL (80.0-100.0) 10/18/23 MCH 25.7 pg (25.0-34.0) 10/18/23 MCHC 31.8 g/dL (32.0-36.0) L 10/18/23 RDW Standard Deviation 52.8 fL (36.4-46.3) H 10/18/23 RDW Coefficient of Variation 18.0 % (11.5-14.5) H 10/18/23 Plt Count 6 K/uL (130-400) L* 10/18/23 ANC 29.21 K/uL (1.4-6.5) H 10/18/23 ALC 1.39 K/uL (1.2-3.4) 10/18/23 Neutrophils % (Manual) 84 % 10/18/23 Lymphocytes % (Manual) 4 % 10/18/23 Monocytes % (Manual) 1 % 10/18/23 Metamyelocytes % (manual) 11 % 10/18/23 Neutrophils # (Manual) 29.21 K/uL (1.40-6.50) H 10/18/23 Lymphocytes # (Manual) 1.39 K/uL (1.2-3.4) 10/18/23 Monocytes # (Manual) 0.35 K/uL (0.11-0.59) 10/18/23 Metamyelocytes # (Manual) 3.82 K/uL (0-0) H 10/18/23 Hyposegmented Neutrophils 1+ 10/18/23 Polychromasia 1+ 10/18/23 Echinocytes 3+ 10/18/23 Toxic Granulation 1+ 10/18/23 Toxic Vacuolation 1+ 10/18/23 Dohle Bodies 1+ 10/18/23 Na 139 mmol/L (136-145) 10/19/23 K 4.8 mmol/L (3.5-5.1) 10/19/23 Cl 105 mmol/L (98-107) 10/19/23 CO2 17 mmol/L (21-32) L 10/19/23 Anion Gap 17 (3-11) H 10/19/23 BUN 94 mg/dl (6-23) H 10/19/23 Creatinine 1.86 mg/dl (0.6-1.2) H 10/19/23 Estimated GFR ( Amer) 29.7 ml/min 10/19/23 Estimated GFR (Non-Af Amer) 25.6 ml/min 10/19/23 BUN/Creatinine Ratio 50.5 (10-20) H 10/19/23 Glu 416 mg/dl (70-99(Fasting)) H* 10/19/23 Ca 8.1 mg/dl (8.6-10.3) L 10/19/23 Phosphorus Level 2.2 mg/dl (2.5-4.9) L 10/19/23 Total Bilirubin 1.8 mg/dl (0.2-1.0) H 10/19/23 Direct Bilirubin 1.1 mg/dl (0-0.2) H 10/19/23 AST 18 U/L (13-39) 10/19/23 ALT 8 U/L (7-52) 10/19/23 Alkaline Phosphatase 278 U/L (34-104) H 10/19/23 TP 3.8 gm/dl (6.0-8.3) L 10/19/23 Albumin 2.2 gm/dl (3.4-5.0) L 10/19/23 Globulin 2.1 gm/dl (2.5-4.0) L 10/18/23 Albumin/Globulin Ratio 0.7 (0.9-2) L 10/18/23 Mg 1.9 mg/dl (1.7-2.4) 10/19/23 02:20 Calcium Level 8.1 mg/dl (8.6-10.3) L 10/19/23 10:02 Venous Blood pH 7.34 (7.36-7.41) L 10/19/23 10:02 Devendra Test NA 10/19/23 04:12 Microbiology 10/18/23 13:31 Aerobic Blood Culture - Preliminary Blood Gram positive cocci Gram negative bacilli Diagnostic Findings (Past 24 Hours) Chest X-Ray 10/18/23 13:00 SUPINE PORTABLE AP CHEST RADIOGRAPH CLINICAL HISTORY: weakness COMPARISON STUDY: Chest radiograph February 06, 2018. FINDINGS: There is mild elevation of the left hemidiaphragm. Upper mediastinal widening is noted. Allowing for supine technique, this is likely similar to prior exam. Cardiomegaly is unchanged. There is pulmonary vascular congestion without overt pulmonary edema. Linear left lung densities favor atelectasis or scarring. No pneumothorax is identified on supine exam. Trace left pleural effusion. IMPRESSION: 1. Stable cardiomegaly. Pulmonary vascular congestion. 2. Trace left pleural effusion. ACT 112: Negative or not required by law. Electronically signed by: Corey Wilson M.D. 10/18/2023 3:[address] 10/18/23 13:03 CT OF THE HEAD WITHOUT CONTRAST CLINICAL HISTORY: Altered mental status. COMPARISON STUDY: Head CT July 12, 2015. CT DOSE: 1094.1 mGy.cm TECHNIQUE: Helical axial images of the head were obtained without IV contrast. Automated exposure control was utilized for the study. A dose lowering technique was utilized adhering to the principles of ALARA. FINDINGS: This study is mildly compromised by motion artifact. No acute intracra nial hemorrhage, midline shift or mass effect is present. Encephalomalacia within the right [employer] distribution is unchanged. 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 A 1.3 cm hypodense focus within the right cerebellar hemisphere on image 5 of 28 is new since prior head CT. This is age indeterminate. White matter hypodensity suggests small vessel disease. There are no findings to suggest acute dural sinus thrombosis or acute territorial infarct. Trace fluid within the bilateral mastoid air cells. There is polypoid mucosal thickening of the left maxillary and sphenoid sinuses. IMPRESSION: 1. No acute intracranial hemorrhage. Exam mildly compromised by motion artifact. 2. No change in an old right [employer] territory infarct. 3. 1.3 cm hypodense focus within the right cerebellar hemisphere, new since head CT of July 12, 2015. This represents a small interval age indeterminate infarct. ACT 112: Negative or not required by law. Electronically signed by: Corey Wilson M.D. 10/18/2023 1:56 PM Abdomen/Pelvis CT 10/18/23 19:50 Exam(s): CT ABDOMEN + PELVIS With Contrast IV Amt: 83 ml optiray 320 EXAM: CT Abdomen and Pelvis With Intravenous Contrast CLINICAL HISTORY: Reason for exam: eval for infective process- eval deep tissue groin. TECHNIQUE: Axial computed tomography images of the abdomen and pelvis with intravenous contrast. CTDI is 34.25 mGy and DLP is 1876.56 mGy-cm. Automated exposure control was utilized for the study. A dose lowering technique was utilized adhering to the principles of ALARA. CONTRAST: Patient received 83 ml optiray 320 of IV contrast COMPARISON: December 30, 2010 FINDINGS: Lung bases: See below. Pleural space: Trace right pleural effusion measuring 1.7 cm posteriorly. There is mild bibasilar atelectasis versus pneumonia, greater on the right than the left. ABDOMEN: Liver: Unremarkable. No mass. Gallbladder and bile ducts: Previous cholecystectomy. No biliary duct dilation is seen. Pancreas: Unremarkable. No mass. No ductal dilation. Spleen: Unremarkable. No splenomegaly. Adrenals: Unremarkable. No mass. Kidneys and ureters: Mild right hydronephrosis and hydroureter. There is a faint density measuring approximately 5 mm in the distal right ureter which is suspicious for a ureteral calculus versus inspissated debris. Stomach and bowel: Bowel loops are nondilated. There is mild diffuse wall thickening throughout the colon suggesting colitis. No pneumoperitoneum, free fluid, or abscess is seen. PELVIS: Appendix: No findings to suggest acute appendicitis. Bladder: The urinary bladder is decompressed by Watkins catheter. Reproductive: Unremarkable as visualized. ABDOMEN and PELVIS: Intraperitoneal space: The uterus has been removed. No free fluid is seen in the pelvis. Bones/joints: Mild osteoarthritic changes of both hips. No acute fracture or dislocation is seen. Mild to moderate degenerative changes throughout the spine. No acute fracture or subluxation is seen. Soft tissues: Unremarkable. Vasculature: Unremarkable. No abdominal aortic aneurysm. Lymph nodes: Unremarkable. No enlarged lymph nodes. Tubes, lines and devices: There is a central venous catheter in the right common femoral vein extending to the right external iliac vein. IMPRESSION: 1. Trace right pleural effusion measuring 1.7 cm posteriorly. There is mild bibasilar atelectasis versus pneumonia, greater on the right than the left. 2. Mild right hydronephrosis and hydroureter. There is a faint density measuring approximately 5 mm in the distal right ureter which is suspicious for a ureteral calculus versus inspissated debris. 3. Bowel loops are nondilated. There is mild diffuse wall thickening throughout the colon suggesting colitis. No pneumoperitoneum, free fluid, or abscess is seen. Electronically signed by: Anatoliy Alfonso MD 10/18/23 21:06 PM Chest X-Ray 10/19/23 04:15 XR chest 1V portable HISTORY: 78 years-old Female while intubated- eval lines, tubes, lung nino acute respiratory failure COMPARISON: 10/18/2023 TECHNIQUE: AP view of the chest FINDINGS: Endotracheal tube overlies the midline, 1.7 cm superior to the stone. Enteric tube courses in the stomach with distal tip outside the [id number]. Unchanged cardiomediastinal and hilar silhouettes. No pneumothorax. Small right pleural effusion with progressive right lung consolidation which is most pronounced within the right lung base. Bones appear grossly intact. IMPRESSION: 1. Lines and tubes as above. 2. There is a new small right pleural effusion with progressive right basilar prominent airspace opacities, possibly representing aspiration. ACT 112: Negative or not required by law. The above report was generated using voice recognition software. It may contain grammatical, syntax or spelling errors. Electronically signed by: Efren Rodríguez M.D. 10/19/2023 6:39 AM I & O Totals 24 Hours 10/18/23 10/19/23 10/20/23 06:59 06:59 06:59 Intake Total 66245.908 / 76953.908 1257.333 / 1257.333 Output Total 380 / 380 Balance 92415.908 / 22051.908 1257.333 / 1257.333 Cumulative 10/18/23 12:23 thru 10/19/23 08:40 Intake Total 20080.241 Output Total 380 Balance 59798.241 RT Ventilator Mngmt (Last Documented) Ventilator Ordered Settings Ventilator Support Mode Assist Control 10/19/23 08:41 Respiratory Rate 32 10/19/23 08:41 Ventilator Tidal Volume 400 10/19/23 08:41 Setting Minute Ventilation 12.3 10/19/23 08:41 Positive End Expiratory 8 10/19/23 08:41 Pressure Fraction of Inspired Oxygen 50 10/19/23 08:41 Peak Inspiratory Flow 49 10/18/23 17:38 Ventilator - PT Measurements Respiratory Rate 32 Exhaled Tidal Volume 395 Minute Ventilation 12.3 Peak Inspiratory Airway 22 Pressure Plateau Pressure 18 Respiratory Cycle Inspiratory: 1:2.6 Expiratory Ratio Inspiratory Phase Time 0.6 End-Tidal CO2 46 Static Lung Compliance 39.50 Dynamic Lung Compliance 28.21 Normal Static Lung Compliance 47.00 Patient Measurements Comment Settings switched to 26 400 +7 50% post ABG per Dr. C[place]ton Coding Level of Care Code 14450 CRITICAL CARE 1ST 30-74M Diagnoses Shock circulatory R57.9 DKA (diabetic ketoacidosis) E11.11 Diabetes mellitus complication detail: with coma Diabetes mellitus type: type 2 Sepsis A41.9; R65.21; N17.9 Acute renal failure type: unspecified Sepsis acute organ dysfunction status: with acute organ dysfunction Sepsis type: sepsis due to unspecified organism Severe sepsis acute organ dysfunction type: acute renal failure Severe sepsis shock status: with septic shock Acute renal failure, unspecified acute renal failure type N17.9 Acute renal failure type: unspecified High anion gap metabolic acidosis E87.29 Paralytic stroke I63.9 Dyslipidemia (high LDL; low HDL) E78.5 Essential hypertension I10 Thrombocytopenia D69.6 (2) DKA (diabetic ketoacidosis) Diabetes mellitus complication detail: with coma Diabetes mellitus type: type 2 Qualified Code(s): E11.11 - Type 2 diabetes mellitus with ketoacidosis with coma (3) Sepsis Acute renal failure type: unspecified Sepsis acute organ dysfunction status: with acute organ dysfunction Sepsis type: sepsis due to unspecified organism Severe sepsis acute organ dysfunction type: acute renal failure Severe sepsis shock status: with septic shock Qualified Code(s): A41.9 - Sepsis, unspecified organism; R65.21 - Severe sepsis with septic shock; N17.9 - Acute kidney failure, unspecified (4) Acute renal failure Acute renal failure type: unspecified Qualified Code(s): N17.9 - Acute kidney failure, unspecified
--- NOTE | 2023-10-19 09:43 | Urology Consultation ---
Date of Consultation October 19, 2023 Assessment & Plan (1) Sepsis: Plan 78 year old critically ill female admitted to ICU with severe septic shock, DKA, multiorgan failure. -Urology consulted for mild right hydronephrosis and hydroureter with faint density possibly a 5mm distal right ureteral stone vs debris as noted on CT imaging. -Pt also noted to have groin cellulitis with concern of possible Nec Fasc/Alpa -Pt critically and acutely ill and unable to answer questions. Remains intubated and sedated in ICU. -Pt unstable for transfer requiring significant respiratory and cardiovascular support. -Prognosis poor. Family considering comfort measures. -Febrile. On multiple vasopressors to maintain BP. -Blood and urine cultures pending. On empiric antibiotics. -Watkins intact. -Will continue to monitor and will be available if clinical course requires emergent intervention or if patient surrogates decide to move forward with heroic/life-saving efforts. -Urology will follow peripherally. -Please call with any further questions, concerns, or changes in patient status. Plan of care reviewed with Dr. Rider, on-call urologist. History of Present Illness Attending Physician: María Swanson MD History of Present Illness 78 year old critically ill female who was brought in by the EMS as she was found unresponsive on the floor at home admitted to ICU with severe septic shock, DKA, multiorgan failure. Per chart review, patient was found lying in bed covered in urine and blood. In the ED she was noted to be hypotensive and hypothermic with marked dehydration making it difficult to obtain access. She received 3 L of IV fluids but was persistently hypotensive and pressors were initiated. She was noted to have a erythematous rash covering her groin area. She was admitted to the ICU due to refractory hypotension requiring vasopressors. A CT abdomen pelvis was obtained -Mild right hydronephrosis and hydroureter. There is a faint density measuring approximately 5 mm in the distal right ureter which is suspicious for a ureteral calculus versus inspissated debris. Urology asked to evaluate patient due to a possible 5mm distal right ureteral stone with mild right hydronephrosis. Remains intubated and sedated in ICU. Febrile and requiring multiple vasopressors to maintain blood pressure. Watkins intact. On Empiric antibiotics. Concern of possible UTI and groin cellulitis. General surgery consulted. WBC 34.77, hemoglobin 9.8, creatinine 1.86. Urine and blood cultures are pending. Allergies Allergy/AdvReac Type Severity Reaction Status Date / Time No Known Allergies Allergy Unknown NONE Unverified 02/03/18 15:50 Home Medications Medication Instructions Recorded Confirmed Type ergocalciferol (vitamin D2) 1,000 2,000 unit PO DAILY ##0 01/12/13 10/18/23 History unit capsule aspirin 81 mg tablet 81 mg PO DAILY ##0 06/07/13 10/18/23 History atorvastatin 20 mg tablet 20 mg PO DAILY 10/18/23 10/18/23 History empagliflozin 25 mg tablet 25 mg PO QAM 10/18/23 10/18/23 History (Jardiance) famotidine 40 mg tablet 40 mg PO QAM 10/18/23 10/18/23 History glipizide 5 mg tablet 10 mg PO DAILY 10/18/23 10/18/23 History hydralazine 25 mg tablet 25 mg PO TID 10/18/23 10/18/23 History levothyroxine 175 mcg tablet 218.75 mcg PO DAILY 10/18/23 10/18/23 History linagliptin 5 mg tablet (Tradjenta) 5 mg PO QAM 10/18/23 10/18/23 History lisinopril 2.5 mg tablet 2.5 mg PO QAM 10/18/23 10/18/23 History metformin 500 mg tablet,extended 1,000 mg PO BID 10/18/23 10/18/23 History release 24 hr metoprolol tartrate 50 mg tablet 50 mg PO BID 10/18/23 10/18/23 History potassium chloride 10 mEq 10 meq PO BID 10/18/23 10/18/23 History tablet,extended release(part/cryst) (Klor-Con M) Patient History Medical History Depression GERD (gastroesophageal reflux disease) Hemiparesis affecting left side as late effect of cerebrovascular accident (CVA) Dyslipidemia (high LDL; low HDL) Vitamin D deficiency Essential hypertension Diabetes mellitus Headache Contusion of finger of right hand Hypothyroidism Paralytic stroke (01/12/13) Surgical History History of laparoscopic cholecystectomy (06/07/13) History of total hysterectomy with bilateral salpingo-oophorectomy (BSO) Social History Smoking Status: Unknown if ever smoked Cigarettes Per Day: unk; Preferred Language: [place]ill[place] Communication Ability: Unable Communication Ability Comment: tubes and vented Laminating Machine Operator Required: No Beliefs That Will Affect Care: Spiritual Spiritual Healthcare Practices: unk Current Living Situation: Family Current Living Situation Comment: lives w family Feels Safe at Home: Yes Assistive Devices: None and Oxygen - Continuous Review of Systems Review of Systems: Unobtainable due to endotracheal tube Physical Exam Constitutional: Critically and acutely ill. Unable to answer questions. Remains intubated and sedated in ICU. Watkins intact. Results & Data Vital Signs (Past 12 Hours) Vital Signs Temp Pulse Resp BP Pulse Ox Pulse Ox O2 Del Method 10/19/23 06:00 38.1 C H 124 H 28 H 113/80 94 Mechanical Vent 10/19/23 05:45 38.1 C H 125 H 29 H 96/65 L 92 Mechanical Vent 10/19/23 05:30 38.0 C H 121 H 28 H 129/58 L 94 Mechanical Vent 10/19/23 05:15 38.1 C H 122 H 28 H 114/73 94 Mechanical Vent 10/19/23 05:00 38.1 C H 124 H 33 H 111/58 L 98 Mechanical Vent 10/19/23 04:45 38.1 C H 122 H 28 H 135/70 92 Mechanical Vent 10/19/23 04:30 38.1 C H 122 H 31 H 104/70 95 Mechanical Vent 10/19/23 04:29 123 H 34 H 94 10/19/23 04:15 38.0 C H 121 H 28 H 145/73 H 95 Mechanical Vent 10/19/23 04:00 37.8 C H 123 H 27 H 82/70 L 93 Mechanical Vent 10/19/23 04:00 10/19/23 03:45 37.4 C 124 H 26 H 118/62 93 Mechanical Vent 10/19/23 03:30 36.3 C L 120 H 26 H 124/61 93 Mechanical Vent 10/19/23 03:15 37.6 C H 122 H 34 H 86/70 L 96 Mechanical Vent 10/19/23 03:00 37.5 C 122 H 33 H 138/83 95 Mechanical Vent 10/19/23 02:45 37.5 C 122 H 29 H 114/83 95 Mechanical Vent 10/19/23 02:30 37.4 C 124 H 28 H 142/81 H 97 Mechanical Vent 10/19/23 02:15 37.3 C 121 H 26 H 118/71 96 Mechanical Vent 10/19/23 02:00 37.1 C 119 H 26 H 86/69 L 97 Mechanical Vent 10/19/23 01:45 37.0 C 119 H 29 H 89/59 L 96 Mechanical Vent 10/19/23 01:30 36.8 C 117 H 26 H 100/71 96 Mechanical Vent 10/19/23 01:15 36.4 C L 119 H 27 H 139/60 96 Mechanical Vent 10/19/23 01:00 36.7 C 123 H 26 H 138/56 L 95 Mechanical Vent 10/19/23 00:45 36.6 C 113 H 26 H 137/84 94 Mechanical Vent 10/19/23 00:30 36.6 C 116 H 26 H 148/98 H 96 Mechanical Vent 10/19/23 00:15 36.6 C 118 H 27 H 152/64 H 100 Mechanical Vent 10/19/23 00:12 119 H 32 H 96 10/19/23 00:00 36.6 C 115 H 26 H 148/75 H 100 Mechanical Vent 10/19/23 00:00 10/19/23 00:00 125 H 10/18/23 23:45 36.6 C 112 H 27 H 131/60 100 Mechanical Vent 10/18/23 23:30 36.5 C 124 H 29 H 94/51 L 98 Mechanical Vent 10/18/23 23:15 36.3 C L 123 H 28 H 106/55 L 97 Mechanical Vent 10/18/23 23:00 36.2 C L 125 H 30 H 118/67 98 Mechanical Vent 10/18/23 22:45 36.0 C L 109 H 26 H 127/69 99 Mechanical Vent 10/18/23 22:30 36.0 C L 117 H 26 H 96/60 L 99 Mechanical Vent 10/18/23 22:15 35.9 C L 121 H 27 H 131/98 99 Mechanical Vent 10/18/23 22:00 35.9 C L 117 H 26 H 153/51 H 99 Mechanical Vent 10/18/23 21:45 35.9 C L 121 H 26 H 122/53 L 97 Mechanical Vent 10/18/23 21:33 35.8 C L 121 H 26 H 96/48 L 96 Mechanical Vent 10/18/23 21:30 35.8 C L 130 H 27 H 148/67 H 92 Mechanical Vent 10/18/23 21:15 35.8 C L 110 H 26 H 126/63 92 Mechanical Vent 10/18/23 21:00 Mechanical Vent 10/18/23 21:00 35.7 C L 115 H 26 H 127/62 92 Mechanical Vent 10/18/23 20:53 35.7 C L 120 H 28 H 182/85 H 92 Mechanical Vent 10/18/23 20:45 35.7 C L 122 H 34 H 94 Mechanical Vent 10/18/23 20:40 124 H 28 H 91 10/18/23 20:00 94 10/18/23 20:00 10/18/23 20:00 35.8 C L 127 H 126/57 L 94 10/18/23 20:00 127 H 27 H 182/82 H 91 Mechanical Vent O2 Del Method FiO2 10/19/23 06:00 50 10/19/23 05:45 50 10/19/23 05:30 50 10/19/23 05:15 50 10/19/23 05:00 50 10/19/23 04:45 50 10/19/23 04:30 50 10/19/23 04:29 50 10/19/23 04:15 50 10/19/23 04:00 50 10/19/23 04:00 50 10/19/23 03:45 50 10/19/23 03:30 50 10/19/23 03:15 50 10/19/23 03:00 50 10/19/23 02:45 50 10/19/23 02:30 60 10/19/23 02:15 60 10/19/23 02:00 60 10/19/23 01:45 60 10/19/23 01:30 60 10/19/23 01:15 60 10/19/23 01:00 60 10/19/23 00:45 60 10/19/23 00:30 60 10/19/23 00:15 80 10/19/23 00:12 90 10/19/23 00:00 80 10/19/23 00:00 60 10/19/23 00:00 10/18/23 23:45 80 10/18/23 23:30 80 10/18/23 23:15 80 10/18/23 23:00 80 10/18/23 22:45 80 10/18/23 22:30 90 10/18/23 22:15 90 10/18/23 22:00 90 10/18/23 21:45 90 10/18/23 21:33 90 10/18/23 21:30 90 10/18/23 21:15 90 10/18/23 21:00 50 10/18/23 21:00 90 10/18/23 20:53 60 10/18/23 20:45 60 10/18/23 20:40 50 10/18/23 20:00 Mechanical Vent 10/18/23 20:00 50 10/18/23 20:00 10/18/23 20:00 60 PG Care Time/CCT Total # of Minutes Spent Total Time Spent with Patient: Total time spent is greater than 50% in coordination of care (as documented) at patient's floor/unit and/or counseling patient: Coding Level of Care Code 91371 INT INP/OBS CARE MIN Diagnoses Sepsis A41.9; R65.21; N17.9 Acute renal failure type: unspecified Sepsis acute organ dysfunction status: with acute organ dysfunction Sepsis type: sepsis due to unspecified organism Severe sepsis acute organ dysfunction type: acute renal failure Severe sepsis shock status: with septic shock (1) Sepsis Acute renal failure type: unspecified Sepsis acute organ dysfunction status: with acute organ dysfunction Sepsis type: sepsis due to unspecified organism Severe sepsis acute organ dysfunction type: acute renal failure Severe sepsis shock status: with septic shock Qualified Code(s): A41.9 - Sepsis, unspecified organism; R65.21 - Severe sepsis with septic shock; N17.9 - Acute kidney failure, unspecified
[2023-10-19] MEDS ORDERED: ONDANSETRON INJ 2 MG/ML 2 ML VIAL IV PRN (10:19)
[2023-10-19] MEDS ORDERED: ONDANSETRON 4 MG OD TAB SL PRN (10:19)
[2023-10-19] MEDS ORDERED: LORazepam 0.5 MG TAB PO PRN (10:19)
[2023-10-19] MEDS ORDERED: LORazepam 0.5 MG in SYRINGE 0.25 ML IV PRN (10:19)
[2023-10-19 10:42] LABS: BUN Creatinine Ratio 50.5 (10-20); Calcium 8.1 mg/dl (8.6-10.3); Creatinine Clr Calc Pharmacy 23.2 ml/min; Est GFR (African American) 29.7 ml/min; Est GFR (Non-African American) 25.6 ml/min; Phosphorus 2.2 mg/dl (2.5-4.9); Potassium 4.8 mmol/L (3.5-5.1)
--- NOTE | 2023-10-19 10:57 | Electrocardiogram Report ---
Test Reason : Blood Pressure : / mmHG Vent. Rate : 115 BPM Atrial Rate : 115 BPM P-R Int : 138 ms QRS Dur : 104 ms QT Int : 352 ms P-R-T Axes : 083 -20 075 degrees QTc Int : 486 ms Poor data quality, interpretation may be adversely affected Sinus tachycardia with PACs and PVCs possible Inferior infarct (cited on or before 12-JAN-2013) Nonspecific ST abnormality Abnormal ECG When compared with ECG of 18-OCT-2023 13:03, ST now depressed in Lateral leads Inverted T waves have replaced nonspecific T wave abnormality in Lateral leads Confirmed by Josue Diaz ([id number]) on 10/19/2023 10:56:59 AM Referred By: REFERRED SELF Confirmed By:Oliverio Diaz
[2023-10-19] MEDS ORDERED: PANTOprazole 40 MG in SYRINGE 0 ML IV SCH (11:00)
--- NOTE | 2023-10-19 11:19 | Communication Note ---
Date of Service: October 19, 2023 Note I was called to patients bedside to pronounce patient as . No spontaneous movements were present. There was no response to verbal or tactile stimuli. Pupils were mid-dilated and fixed. No carotid pulses were palpable. No heart sounds were auscultated over entire precordium. Patient terminally extubated. No breath sound were heard. Family was notified and at bedside. ICU attending made aware. Neonatal Doctor and postmortem services were offered. Patient was DNR at time of . Time of was 1055am on 10/19/2023 General: unresponsive, no spontaneous movements, no response to verbal or tactile stimuli. Eyes: pupils fixed and dilated, corneal reflexes absent. CV: no heart sounds, no carotid pulses. Lungs: no breath sounds, no chest wall motion. Extremities: absent distal pulses
--- NOTE | 2023-10-19 11:21 | Discharge Summary ---
Discharge Summary Date of Service October 19, 2023 Notes For Next Care Provider Medication Changes From Visit Admission HPI Per Admitting Provider This is a 78 y/o female with history of diabetes, prior CVA with residual left hemiparesis, hypothyroidism, HTN, GERD, dyslipidemia, and other history are outlined below who was brought in by EMS unresponsive. History is obtained from her outpatient Epic chart, the ED provider, and the son at bedside. Pt apparently lives with her son in an unfinished basement. Her son reports that he is her primary plant floor automation manager but that they have a caregiver who comes in on Sundays. Pt is bedbound at baseline, has chronic left hemiparesis from a prior CVA. She uses diapers due to her limited ambulatory ability, and her son reports that he changes these when needed. On Thursday, four days ago, she seemed to be at baseline mental status and was eating/drinking as per usual. He reports that she drinks around a cup of water per hour when she is more awake, often stating that she's thirsty. However, since , her son reports that she has become increasingly confused and yesterday, she wasn't talking any oral intake at all and was not responding verbally to him. He usually puts her meds in a pillbox for her to take and states that she takes them most of the time but hasn't been taking them the last few days due to somnolence. Her son checks her sugar at times at home and reports a fasting sugar that is often in the 300s. Today, she was found unresponsive so EMS was called. EMS reportedly found patient lying on the bed covered in urine and blood. She was noted to have significant wounds of her groin that were bleeding. An IO was placed for access in the field and she was started on IV fluids via the IO. She was noted to be hypotensive and hypothermic. In the ED, they had significant difficultly obtaining blood for lab work and establishing IV access as pt was remarkably dehydrated. Access was obtained in the foot and right hand, and pt was given 3L of IVF. Labs showed probable sepsis and DKA so she was referred for admission. Pt's son brought her prescription bottles in from home, and they were reviewed to determine last date filled as it is unclear if pt has been taking these appropriately. Famotidine - filled 04/22/23 Glipizide - filled 05/18/23 Hydralazine - filled 02/06/22 Jardiance - filled 05/18/23 Levothyroxine - filled 02/27/23 Tradjenta - filled 04/16/23 Lisinopril - filled 05/10/23 Metformin ER - filled 01/13/22 Metoprolol tartrate - filled 05/10/23 Potassium - filled 08/03/23 Principal Dx & Hospital Course #1 = Principal Diagnosis (1) Sepsis: (2) DKA (diabetic ketoacidosis): (3) Shock circulatory: (4) Acute renal failure: (5) High anion gap metabolic acidosis: (6) Paralytic stroke: (7) Hypothyroidism: (8) Thrombocytopenia: Plan Ms Pitt was a 78 y/o female with history of diabetes, prior CVA with residual left hemiparesis, hypothyroidism, HTN, GERD, dyslipidemia, and other history are outlined below who was brought in by EMS unresponsive on 10/19. Patient admitted to ICU for management of septic shock and DKA. Per admitting hospitalist: Per EMS, pt was found lying in bed covered in urine and blood. She reportedly lives in her son's basement, where she is bedbound, and he states that he cares for her. On review of her outpatient records, there have been some issues with medical non-compliance. Her most recent A1c on 08/03/23 was 10.5 and TSH same day was 19.20. She was supposed to follow up with glycemic pharmacy but never made the appointment. Her son reportedly manages her medications but states that she has not taken them the last few days. In the ED, she was noted to be hypotensive and hypothermic with marked dehydration making it difficult to obtain access. Once access was obtained, she received 3L of IVF but was persistently hypotensive so pressors were initiated. She was noted to have an erythematous desquamating rash encompassing her entire groin area, and son notes that she wears diapers that he changes when needed. She was given cefepime as part of the sepsis protocol. CT head showed possible CVA in the right cerebellar hemisphere. ED case management notified office of aging due to concern for neglect. Investigation pending. Grave prognosis was discussed with the son at the bedside." Patient was noted to have leukocytosis to 31, thrombocytopenia to 6, pH 7.16, abg CO2 17, BUN in 130s, TOMAS, hyperglycemia to 897, lactate to 4,UA suspicious for infection. Imaging revealed right hydronephrosis with concerns for possible obstructing stone. CXR with pleural effusion and right lung consolidation. Head CT with new 1.3 hypodense lesion in right cerebellar hemisphere compared to imaging from 2015. Age indeterminate. Arterial line in left brachial artery and right fem central line placed, and patient was intubated on 10/18. Overnight events included "roving eye movements" for which she was given versed to "break" movements and started on high dose propofol and thiamine. The morning of 10/19, patient was evaluated at bedside in ICU. She was noted to require max pressor support with MAPS sustaining in the 50-60s. Patient was unresponsive to verbal/physical stimuli. Patient with downward right gaze deviation, rhythmic grimacing noted of brow. Skin exam was notable for extensive bleeding over pubis, pooling along labial folds and maceration in between skin folds. Bottom with extensive pressure injury and beefy swelling of flanks.Notable areas of inflammation and skin cracking of inner thighs. Areas of pressure injury in strap like distribution along back from possible clothing/bra support. #Toxic Metabolic Encephalopathy #Seizure like activity #Prior CVA c/b left hemiplegia -likely secondary to profound septic shock -Trialed on propofol after IV versed #Multi-organ failure #Septic Shock likely multifactorial #Right hydronephrosis with nephrolithiasis #Acute complicated cystitis #Severe skin/soft tissue infection - Admited to ICU - Pressors initiated due to refractory hypotension despite fluid resuscitation - Critical care consulted -MAPS failed to improved despite escalating pressor support - Continued broad spectrum antibiotics -Transitioned to Comfort measures - #Acute respiratory failure requiring mechanical ventilation #Diabetic Ketoacidosis #High anion gap metabolic acidosis, multifactorial -Ventilated, respiratory failure likely secondary to profound acidosis -Acidosis from septic shock, ketoacidosis -Trialed on insulin drip, glucose in 800s on arrival -Terminally extubated 10/19 #Severe leukocytosis #Severe thrombocytopenia -Likely secondary to severe septic shock #Acute renal failure -As above #Hypothyroidism -TSH 4.49, stable on admission Patient transitioned to PAINTER SPRAY and declared at 1055 Discharge Exam Constitutional dilated fixed pupils, prior to comfort measures: downward right gaze with nystagmus, rhythmic grimace/furrow of brow Respiratory absent after extubation Prior, no signs of over breathing vent, all breaths trigger by vent Cardiovascular initially tachycardic to 130s, full pressor Support with maps in 50-60s; absent upon withdrawal of care Gastrointestinal (Abdomen) soft, obese; notable skin maceration upon lifting pannus, labial folds with beefy red excoriations and bleeding; beefy red inflammation along bilateral flanks extending to buttocks with areas of pressure injury Updated Medication List Medication Instructions Recorded Confirmed Type ergocalciferol (vitamin D2) 1,000 2,000 unit PO DAILY ##0 01/12/13 10/18/23 History unit capsule aspirin 81 mg tablet 81 mg PO DAILY ##0 06/07/13 10/18/23 History atorvastatin 20 mg tablet 20 mg PO DAILY 10/18/23 10/18/23 History empagliflozin 25 mg tablet 25 mg PO QAM 10/18/23 10/18/23 History (Jardiance) famotidine 40 mg tablet 40 mg PO QAM 10/18/23 10/18/23 History glipizide 5 mg tablet 10 mg PO DAILY 10/18/23 10/18/23 History hydralazine 25 mg tablet 25 mg PO TID 10/18/23 10/18/23 History levothyroxine 175 mcg tablet 218.75 mcg PO DAILY 10/18/23 10/18/23 History linagliptin 5 mg tablet (Tradjenta) 5 mg PO QAM 10/18/23 10/18/23 History lisinopril 2.5 mg tablet 2.5 mg PO QAM 10/18/23 10/18/23 History metformin 500 mg tablet,extended 1,000 mg PO BID 10/18/23 10/18/23 History release 24 hr metoprolol tartrate 50 mg tablet 50 mg PO BID 10/18/23 10/18/23 History potassium chloride 10 mEq 10 meq PO BID 10/18/23 10/18/23 History tablet,extended release(part/cryst) (Klor-Con M) Hospital Stay Data Consultations 10/18/23 14:08 ED Decision to Admit Stat 10/18/23 15:55 Consult Environmental Scientist Routine 10/18/23 20:41 Consult General Surgery Routine 10/18/23 21:54 Consult Urology Routine Diagnostic Imagining Performed 10/18/23 13:03 CT head/brain wo con Stat 10/18/23 19:50 CT abd pelvis IV con only Stat Total Time Total Time Spent Total Time Spent (In Minutes): 75
--- NOTE | 2023-10-20 06:30 | Electroencephalogram ---
EEG Procedure Note Date of Service October 19, 2023 Start / End Times Start Time: 06:36 End Time: 06:56 Referring Physician Dagoberto Joyce PA-C History A 78 year old female with septic shock currently intubated. EEG performed for evaluation of epileptiform activity. Home Medication List Medication Instructions Recorded Confirmed Type ergocalciferol (vitamin D2) 1,000 2,000 unit PO DAILY ##0 01/12/13 10/18/23 History unit capsule aspirin 81 mg tablet 81 mg PO DAILY ##0 06/07/13 10/18/23 History atorvastatin 20 mg tablet 20 mg PO DAILY 10/18/23 10/18/23 History empagliflozin 25 mg tablet 25 mg PO QAM 10/18/23 10/18/23 History (Jardiance) famotidine 40 mg tablet 40 mg PO QAM 10/18/23 10/18/23 History glipizide 5 mg tablet 10 mg PO DAILY 10/18/23 10/18/23 History hydralazine 25 mg tablet 25 mg PO TID 10/18/23 10/18/23 History levothyroxine 175 mcg tablet 218.75 mcg PO DAILY 10/18/23 10/18/23 History linagliptin 5 mg tablet (Tradjenta) 5 mg PO QAM 10/18/23 10/18/23 History lisinopril 2.5 mg tablet 2.5 mg PO QAM 10/18/23 10/18/23 History metformin 500 mg tablet,extended 1,000 mg PO BID 10/18/23 10/18/23 History release 24 hr metoprolol tartrate 50 mg tablet 50 mg PO BID 10/18/23 10/18/23 History potassium chloride 10 mEq 10 meq PO BID 10/18/23 10/18/23 History tablet,extended release(part/cryst) (Klor-Con M) Inpatient Medication List Epinephrine HCl (Epinephrine 1.5" Ndl 0.1 Mg/Ml Syr) Confirm Administered Dose 1 mg IV .STK-MED ONE Stop: 10/18/23 21:22 Last Admin: 10/18/23 21:36 Dose: 1 mg Documented By: SG Hydrocortisone Sodium Succinate (Hydrocortisone Sod Succinate 100 Mg/2 Ml Vial) 200 mg IV NOW STA Stop: 10/18/23 14:51 Last Admin: 10/18/23 15:12 Dose: 200 mg Documented By: MES Sodium Chloride (Nss) 1,000 mls @ 999 mls/hr IV .Q1H1M JAQUAN Stop: 10/18/23 14:00 Last Infusion: 10/18/23 15:16 Dose: Infused Documented By: Admin: 10/18/23 14:13 Dose: 999 mls/hr Documented By: ROMEL Cefepime HCl (Maxipime) 2,000 mg in 20 mls @ 5 mls/min IV NOW STA; Protocol Stop: 10/18/23 13:07 Last Admin: 10/18/23 13:36 Dose: 5 mls/min Description This is a 21 electrode EEG with a single channel dedicated to limited EKG. The electrodes were placed in accordance with the International 10-20 system. REPORT: At the onset of the EEG the patient is in an altered mental state. The background is symmetric but severely suppressed. The posterior dominant rhythm is not seen. No Stage II sleep transients are seen. No reactivity or eye blinking is seen. Interpretation IMPRESSIO: This is an abnormal routine EEG in a patient with altered mentation due to severe background suppression which is non specific and can be secondary to sedation. This can also be seen in severe encephalopathies. No electrographic seizures or epileptiform discharges are seen.
== END 2023-10-19 13:25 | disposition expired | DRG 871 ==
LOC: ED 12:49 → SUATTDRO 14:43 → 1E 14:43
DX: I69.354 Hemiplegia and hemiparesis 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; R32 Unspecified urinary incontinence; L89.329 Pressure ulcer of left buttock, unspecified stage; R65.21 Severe sepsis with septic shock; K21.9 Gastro-esophageal reflux disease without esophagitis; I10 Essential (primary) hypertension; E86.0 Dehydration; E87.1 Hypo-osmolality and hyponatremia; I63.9 Cerebral infarction, unspecified; E78.5 Hyperlipidemia, unspecified; H55.00 Unspecified nystagmus; L89.896 Pressure-induced deep tissue damage of other site; N13.6 Pyonephrosis; L30.8 Other specified dermatitis; Z79.899 Other long term (current) drug therapy; E11.10 Type 2 diabetes mellitus with ketoacidosis without coma; L89.319 Pressure ulcer of right buttock, unspecified stage; R46.0 Very low level of personal hygiene; Z91.A48 Caregiver's other noncompliance with patient's medication regimen for other reason; N17.9 Acute kidney failure, unspecified; Y07.44 Child, perpetrator of maltreatment and neglect; L89.129 Pressure ulcer of left upper back, unspecified stage; Z66 Do not resuscitate; L89.226 Pressure-induced deep tissue damage of left hip; E87.20 Acidosis, unspecified; Z11.52 Encounter for screening for COVID-19; Z68.30 Body mass index [BMI] 30.0-30.9, adult; G92.8 Other toxic encephalopathy; D64.9 Anemia, unspecified; R56.9 Unspecified convulsions; A41.9 Sepsis, unspecified organism; J96.00 Acute respiratory failure, unspecified whether with hypoxia or hypercapnia; D69.6 Thrombocytopenia, unspecified; Z79.890 Hormone replacement therapy; L03.314 Cellulitis of groin; E03.9 Hypothyroidism, unspecified; Z51.5 Encounter for palliative care; G93.89 Other specified disorders of brain; T76.01XA Adult neglect or abandonment, suspected, initial encounter; Z79.84 Long term (current) use of oral hypoglycemic drugs; Z74.01 Bed confinement status; Z79.82 Long term (current) use of aspirin; H49.9 Unspecified paralytic strabismus